=== PATIENT | male | born 1990 | race Caucasian/White ===

== ENCOUNTER 2017-03-07 09:55 | Emergency (ER) | payer MEDICAID ==
[~2017-03-07] VITALS: Ht 6206.4 cm; Wt 78.0 kg
[~2017-03-07 09:55] MED LIST: HYDR-569 PO
[2017-03-07] MEDS ORDERED: famotidine/PF 10 mg/ml inj IV ONE (10:35)
[2017-03-07] MEDS ORDERED: methylPREDNISolone sod succ 125mg/2ml vial IV ONE (10:35)
[2017-03-07] MEDS ORDERED: normal saline 1000ML IV soln IVB ONE (10:35)
[2017-03-07] MEDS ORDERED: ondansetron/PF 4mg/2ml inj IV ONE (10:35)
[2017-03-07 11:13] LABS: BASOPHILS % (AUTO) 0.3 % (0-1); EOSINOPHILS # (AUTO) 0.3 X10'3 (0-0.9); EOSINOPHILS % (AUTO) 2.7 % (0-6); HEMATOCRIT 37.4 % (42.0-52.0); HEMOGLOBIN 12.5 g/dl (14.0-17.9); LYMPHOCYTES # (AUTO) 2.4 X10'3 (1.1-4.8); MEAN CORPUSCULAR HEMOGLOBIN 25.5 PG (27.0-31.0); MEAN CORPUSCULAR HGB CONC 33.5 % (33.0-36.5); MEAN CORPUSCULAR VOLUME 76.2 FL (78-98); MEAN PLATELET VOLUME 7.3 FL (7.4-10.4); MONOCYTES # (AUTO) 0.7 X10'3 (0-0.9); MONOCYTES % (AUTO) 7.2 % (2-12); NEUTROPHILS # (AUTO) 6.5 X10'3 (1.8-7.7); NEUTROPHILS % (AUTO) 65.8 % (42-75); PLATELET COUNT 356 X10'3 (140-440); RED BLOOD COUNT 4.91 X10'6 (4.70-6.10); WHITE BLOOD COUNT 9.9 X10'3 (4.5-11.0)
[2017-03-07 11:25] LABS: ALANINE AMINOTRANSFERASE 17 U/L (12-78); ALBUMIN 4.1 G/DL (3.4-5.0); ALKALINE PHOSPHATASE 70 IU/L (46-116); ANION GAP 7 (8-16); ASPARTATE AMINO TRANSFERASE 10 U/L (10-37); BILIRUBIN,TOTAL 0.4 MG/DL (0.1-1.0); BLOOD UREA NITROGEN 14 MG/DL (7-18); BUN/CREATININE RATIO 14.4 (5.4-32.0); CHLORIDE 106 MMOL/L (99-107); CREATININE 0.97 MG/DL (0.60-1.10); GLUCOSE 82 MG/DL (70-104); LIPASE 176 U/L (73-393); POTASSIUM 3.3 MMOL/L (3.5-5.1); SODIUM 143 MMOL/L (135-145); TOTAL CARBON DIOXIDE 29.6 MMOL/L (24-32); TOTAL PROTEIN 8.1 G/DL (6.4-8.2); eGFR > 90 ML/MIN
[2017-03-07] MEDS ORDERED: diphenhydrAMINE 50 mg/ml inj IV ONE (11:25)
[2017-03-07 11:28] LABS: CALCIUM 9.5 MG/DL (8.5-10.1)
[2017-03-07] MEDS ORDERED: HYDR-569 PO (11:46)
[2017-03-07] MEDS ORDERED: METH4TAB3 PO (11:46)
[2017-03-07 12:11] VITALS: BP 125/75
== END 2017-03-07 12:15 | disposition home or self-care (01) ==
LOC: ER 09:57
DX: K50.90 Crohn's disease, unspecified, without complications (principal); R10.84 Generalized abdominal pain; F12.10 Cannabis abuse, uncomplicated; G89.29 Other chronic pain; Z90.49 Acquired absence of other specified parts of digestive tract; Z98.890 Other specified postprocedural states; Z88.5 Allergy status to narcotic agent
CPT/HCPCS: 36415; 80053; 83690; 85025; 96361; 96374; 96375; 99284; J1200; J2270; J2405; J2930; J3490

== ENCOUNTER 2017-04-23 04:41 | Emergency (ER) | payer MEDICAID ==
[~2017-04-23] VITALS: Ht 188 cm; Wt 81.0 kg
[~2017-04-23 04:41] MED LIST changes: +AZI25OT PO; +DICY10CA88 PO; +HYDR-565 PO; +METH4TAB3 PO
[2017-04-23] MEDS ORDERED: proCHLORperazine 10 MG/2 ml inj IV ONE (05:00)
[2017-04-23] MEDS ORDERED: LORazepam 2 mg/ml vial IV ONE (05:00)
[2017-04-23] MEDS ORDERED: diphenhydrAMINE 50 mg/ml inj IV ONE (05:00)
[2017-04-23] MEDS ORDERED: normal saline 1000ML IV soln IVB ONE (05:00)
[2017-04-23] MEDS ORDERED: morphine 2 MG/ML inj. syringe IV ONE (05:00)
[2017-04-23] MEDS ORDERED: morphine 4 MG/ML inj SYRINge IV ONE (05:35)
[2017-04-23 05:46] LABS: ALANINE AMINOTRANSFERASE 24 U/L (12-78); ALBUMIN 3.8 G/DL (3.4-5.0); ALBUMIN/GLOBULIN RATIO 0.9 (1.1-1.5); ALKALINE PHOSPHATASE 77 IU/L (46-116); ANION GAP 8 (8-16); ASPARTATE AMINO TRANSFERASE 11 U/L (10-37); BILIRUBIN,TOTAL 0.2 MG/DL (0.1-1.0); BLOOD UREA NITROGEN 12 MG/DL (7-18); BUN/CREATININE RATIO 13.6 (5.4-32.0); CALCIUM 9.2 MG/DL (8.5-10.1); CHLORIDE 101 MMOL/L (99-107); CREATININE 0.88 MG/DL (0.60-1.10); GLUCOSE 106 MG/DL (70-104); LIPASE 89 U/L (73-393); POTASSIUM 3.7 MMOL/L (3.5-5.1); SODIUM 138 MMOL/L (135-145); TOTAL CARBON DIOXIDE 29.4 MMOL/L (24-32); eGFR > 90 ML/MIN
[2017-04-23] MEDS ORDERED: DICY10CA88 PO (06:08)
[2017-04-23] MEDS ORDERED: PRED20TA PO (06:08)
[2017-04-23] MEDS ORDERED: ONDA4TAB12 PO (06:08)
[2017-04-23] MEDS ORDERED: methylPREDNISolone sod succ 125mg/2ml vial IV ONE (06:10)
[2017-04-23 07:08] LABS: BASOPHILS % (AUTO) 0.4 % (0-1); EOSINOPHILS # (AUTO) 0.3 X10'3 (0-0.9); EOSINOPHILS % (AUTO) 3.2 % (0-6); HEMATOCRIT 28.7 % (42.0-52.0); HEMOGLOBIN 9.8 g/dl (14.0-17.9); LYMPHOCYTES % (AUTO) 22.3 % (21-51); MEAN CORPUSCULAR HEMOGLOBIN 25.2 PG (27.0-31.0); MEAN CORPUSCULAR VOLUME 74.1 FL (78-98); MONOCYTES # (AUTO) 0.6 X10'3 (0-0.9); MONOCYTES % (AUTO) 6.7 % (2-12); NEUTROPHILS % (AUTO) 67.4 % (42-75); PLATELET COUNT 414 X10'3 (140-440); RED BLOOD COUNT 3.87 X10'6 (4.70-6.10); RED CELL DISTRIBUTION WIDTH 17.6 % (11.5-14.5); WHITE BLOOD COUNT 8.9 X10'3 (4.5-11.0)
[2017-04-23 07:30] VITALS: BP 116/60
== END 2017-04-23 07:31 | disposition home or self-care (01) ==
LOC: ER 04:42
DX: R11.2 Nausea with vomiting, unspecified (principal); R10.84 Generalized abdominal pain; R19.7 Diarrhea, unspecified; R53.83 Other fatigue; F12.10 Cannabis abuse, uncomplicated; F17.210 Nicotine dependence, cigarettes, uncomplicated; G89.29 Other chronic pain; Z86.14 Personal history of Methicillin resistant Staphylococcus aureus infection; Z90.49 Acquired absence of other specified parts of digestive tract; Z88.5 Allergy status to narcotic agent; Z88.8 Allergy status to other drugs, medicaments and biological substances; Z79.899 Other long term (current) drug therapy
CPT/HCPCS: 36415; 80053; 83690; 85025; 96361; 96374; 96375; 99284; J0780; J1200; J2060; J2270; J2930; J7030

== ENCOUNTER 2017-04-27 01:53 | Emergency (ER) | payer MEDICAID ==
[~2017-04-27] VITALS: Ht 188 cm; Wt 78.8 kg
[~2017-04-27 01:53] MED LIST changes: +ONDA4TAB12 PO; +PRED20TA PO
[2017-04-27 03:11] LABS: BASOPHILS % (AUTO) 0.4 % (0-1); EOSINOPHILS # (AUTO) 0.3 X10'3 (0-0.9); EOSINOPHILS % (AUTO) 2.6 % (0-6); HEMATOCRIT 37.2 % (42.0-52.0); HEMOGLOBIN 12.3 g/dl (14.0-17.9); LYMPHOCYTES # (AUTO) 2.6 X10'3 (1.1-4.8); LYMPHOCYTES % (AUTO) 25.1 % (21-51); MEAN CORPUSCULAR HGB CONC 33.1 % (33.0-36.5); MEAN CORPUSCULAR VOLUME 75.6 FL (78-98); MEAN PLATELET VOLUME 6.8 FL (7.4-10.4); MONOCYTES # (AUTO) 0.5 X10'3 (0-0.9); MONOCYTES % (AUTO) 5.1 % (2-12); NEUTROPHILS # (AUTO) 7.1 X10'3 (1.8-7.7); NEUTROPHILS % (AUTO) 66.8 % (42-75); PLATELET COUNT 463 X10'3 (140-440); RED BLOOD COUNT 4.92 X10'6 (4.70-6.10); RED CELL DISTRIBUTION WIDTH 17.2 % (11.5-14.5); WHITE BLOOD COUNT 10.6 X10'3 (4.5-11.0)
[2017-04-27] MEDS ORDERED: morphine 4 MG/ML inj SYRINge IV ONE (03:15)
[2017-04-27] MEDS ORDERED: ondansetron/PF 4mg/2ml inj IV ONE (03:15)
[2017-04-27 03:23] LABS: PROTHROMBIN TIME 10.5 SECONDS (9.0-12.0)
[2017-04-27 03:29] LABS: ALANINE AMINOTRANSFERASE 15 U/L (12-78); ALBUMIN 3.9 G/DL (3.4-5.0); ALBUMIN/GLOBULIN RATIO 0.9 (1.1-1.5); ALKALINE PHOSPHATASE 80 IU/L (46-116); ANION GAP 11 (8-16); ASPARTATE AMINO TRANSFERASE 10 U/L (10-37); BILIRUBIN,TOTAL 0.2 MG/DL (0.1-1.0); BLOOD UREA NITROGEN 16 MG/DL (7-18); BUN/CREATININE RATIO 17.4 (5.4-32.0); CALCIUM 9.6 MG/DL (8.5-10.1); CHLORIDE 104 MMOL/L (99-107); CREATININE 0.92 MG/DL (0.60-1.10); GLUCOSE 94 MG/DL (70-104); POTASSIUM 3.6 MMOL/L (3.5-5.1); SODIUM 143 MMOL/L (135-145); TOTAL CARBON DIOXIDE 27.7 MMOL/L (24-32); TOTAL PROTEIN 8.3 G/DL (6.4-8.2); eGFR > 90 ML/MIN
[2017-04-27 03:48] LABS: C-REACTIVE PROTEIN 1.49 MG/DL (0.0-0.5)
[2017-04-27 04:40] VITALS: BP 112/63
== END 2017-04-27 04:43 | disposition home or self-care (01) ==
LOC: ER 01:53
DX: F11.20 Opioid dependence, uncomplicated (principal); R10.84 Generalized abdominal pain; R19.7 Diarrhea, unspecified; G89.29 Other chronic pain; F12.10 Cannabis abuse, uncomplicated; K50.90 Crohn's disease, unspecified, without complications; Z76.5 Malingerer [conscious simulation]; Z86.14 Personal history of Methicillin resistant Staphylococcus aureus infection; Z88.8 Allergy status to other drugs, medicaments and biological substances; Z88.5 Allergy status to narcotic agent; Z79.899 Other long term (current) drug therapy
CPT/HCPCS: 36415; 80053; 85025; 85610; 85651; 86140; 96374; 96375; 99284; J2270; J2405; J7030

== ENCOUNTER 2017-05-05 17:04 | Emergency (ER) | payer MEDICAID ==
[~2017-05-05] VITALS: Ht 188 cm; Wt 77.7 kg
[~2017-05-05 17:04] MED LIST changes: -AZI25OT PO
[2017-05-05] MEDS ORDERED: bacitracin 15gm ointment TP ONE (19:25)
[2017-05-05 19:43] VITALS: BP 127/79
== END 2017-05-05 19:44 | disposition home or self-care (01) ==
LOC: ER 17:05
DX: L03.012 Cellulitis of left finger (principal); F12.10 Cannabis abuse, uncomplicated; Z88.6 Allergy status to analgesic agent; Z88.8 Allergy status to other drugs, medicaments and biological substances
CPT/HCPCS: 10060; 99283; A6449

== ENCOUNTER 2017-06-11 09:01 | Emergency (ER) | payer MEDICAID ==
[~2017-06-11] VITALS: Ht 188 cm; Wt 78.0 kg
[~2017-06-11 09:01] MED LIST changes: +CYCL-1 PO; -DICY10CA88 PO; +HYDR-3965 PO; -HYDR-565 PO; +ONDA8TAB9 PO
[2017-06-11 09:13] VITALS: BP 115/77
[2017-06-11 09:35] LABS: BASOPHILS # (AUTO) 0.1 X10'3 (0-0.2); EOSINOPHILS # (AUTO) 0.2 X10'3 (0-0.9); EOSINOPHILS % (AUTO) 3.1 % (0-6); HEMATOCRIT 34.7 % (42.0-52.0); HEMOGLOBIN 11.5 g/dl (14.0-17.9); LYMPHOCYTES # (AUTO) 2.7 X10'3 (1.1-4.8); LYMPHOCYTES % (AUTO) 37.7 % (21-51); MEAN CORPUSCULAR HEMOGLOBIN 24.5 PG (27.0-31.0); MEAN CORPUSCULAR HGB CONC 33.2 % (33.0-36.5); MEAN CORPUSCULAR VOLUME 73.8 FL (78-98); MEAN PLATELET VOLUME 6.6 FL (7.4-10.4); MONOCYTES # (AUTO) 0.5 X10'3 (0-0.9); MONOCYTES % (AUTO) 7.6 % (2-12); NEUTROPHILS # (AUTO) 3.6 X10'3 (1.8-7.7); NEUTROPHILS % (AUTO) 50.6 % (42-75); PLATELET COUNT 411 X10'3 (140-440); RED CELL DISTRIBUTION WIDTH 18.2 % (11.5-14.5); WHITE BLOOD COUNT 7.1 X10'3 (4.5-11.0)
[2017-06-11 09:43] LABS: PROTHROMBIN TIME 10.5 SECONDS (9.0-12.0)
[2017-06-11 09:49] LABS: ANION GAP 11 (8-16); BLOOD UREA NITROGEN 13 MG/DL (7-18); BUN/CREATININE RATIO 13.8 (5.4-32.0); CHLORIDE 103 MMOL/L (99-107); CREATININE 0.94 MG/DL (0.60-1.10); GLUCOSE 96 MG/DL (70-104); POTASSIUM 3.2 MMOL/L (3.5-5.1); SODIUM 144 MMOL/L (135-145); TOTAL CARBON DIOXIDE 29.7 MMOL/L (24-32)
[2017-06-11 09:50] LABS: ALANINE AMINOTRANSFERASE 30 U/L (12-78); ALBUMIN 4.1 G/DL (3.4-5.0); ALBUMIN/GLOBULIN RATIO 0.9 (1.1-1.5); ALKALINE PHOSPHATASE 76 IU/L (46-116); ASPARTATE AMINO TRANSFERASE 15 U/L (10-37); BILIRUBIN,TOTAL 0.3 MG/DL (0.1-1.0); CALCIUM 9.4 MG/DL (8.5-10.1); TOTAL PROTEIN 8.5 G/DL (6.4-8.2); eGFR > 90 ML/MIN
== END 2017-06-11 10:36 | disposition left against medical advice (07) ==
LOC: ER 09:02
DX: R10.9 Unspecified abdominal pain (principal); Z53.21 Procedure and treatment not carried out due to patient leaving prior to being seen by health care provider
CPT/HCPCS: 36415; 80053; 85025; 85610; 99281

== ENCOUNTER 2017-10-25 18:33 | Emergency (ER) | payer MEDICAID ==
[~2017-10-25] VITALS: Ht 188 cm; Wt 80.0 kg
[~2017-10-25 18:33] MED LIST changes: -HYDR-3965 PO; -PRED20TA PO
[2017-10-25 18:42] VITALS: BP 136/81
[2017-10-25] MEDS ORDERED: HYDROcodone/acetaminophen 10/325mg tab PO ONE (19:20)
[2017-10-25] MEDS ORDERED: IBUP-1985 PO (19:22)
[2017-10-25] MEDS ORDERED: PENI500T2 PO (19:22)
== END 2017-10-25 19:38 | disposition home or self-care (01) ==
LOC: ER 18:34
DX: K08.89 Other specified disorders of teeth and supporting structures (principal); G89.29 Other chronic pain; F12.90 Cannabis use, unspecified, uncomplicated; Z98.890 Other specified postprocedural states; Z90.49 Acquired absence of other specified parts of digestive tract; Z88.5 Allergy status to narcotic agent; Z88.8 Allergy status to other drugs, medicaments and biological substances
CPT/HCPCS: 99283

== ENCOUNTER 2017-12-30 12:39 | Emergency (ER) | payer MEDICAID ==
[~2017-12-30] VITALS: Ht 188 cm; Wt 78.6 kg
[~2017-12-30 12:39] MED LIST changes: +HYDR-4383 PO; -HYDR-569 PO; +IBUP-1985 PO
[2017-12-30 13:25] LABS: BASOPHILS % (AUTO) 0.3 % (0-1); EOSINOPHILS # (AUTO) 0.3 X10'3 (0-0.9); EOSINOPHILS % (AUTO) 2.5 % (0-6); HEMATOCRIT 37.2 % (42.0-52.0); HEMOGLOBIN 12.2 g/dl (14.0-17.9); LYMPHOCYTES % (AUTO) 19.3 % (21-51); MEAN CORPUSCULAR HEMOGLOBIN 25.4 PG (27.0-31.0); MEAN CORPUSCULAR HGB CONC 32.9 % (33.0-36.5); MEAN CORPUSCULAR VOLUME 77.4 FL (78-98); MEAN PLATELET VOLUME 6.8 FL (7.4-10.4); MONOCYTES # (AUTO) 0.7 X10'3 (0-0.9); MONOCYTES % (AUTO) 6.5 % (2-12); NEUTROPHILS # (AUTO) 7.4 X10'3 (1.8-7.7); NEUTROPHILS % (AUTO) 71.4 % (42-75); PLATELET COUNT 484 X10'3 (140-440); WHITE BLOOD COUNT 10.4 X10'3 (4.5-11.0)
[2017-12-30 13:39] LABS: ALANINE AMINOTRANSFERASE 15 U/L (12-78); ALBUMIN 3.6 G/DL (3.4-5.0); ALBUMIN/GLOBULIN RATIO 0.8 (1.1-1.5); ALKALINE PHOSPHATASE 78 IU/L (46-116); ANION GAP 9 (8-16); ASPARTATE AMINO TRANSFERASE 11 U/L (10-37); BILIRUBIN,TOTAL 0.2 MG/DL (0.1-1.0); BLOOD UREA NITROGEN 15 MG/DL (7-18); BUN/CREATININE RATIO 19.7 (5.4-32.0); CALCIUM 9.4 MG/DL (8.5-10.1); CHLORIDE 101 MMOL/L (99-107); CREATININE 0.76 MG/DL (0.60-1.10); GLUCOSE 95 MG/DL (70-104); POTASSIUM 3.4 MMOL/L (3.5-5.1); SODIUM 140 MMOL/L (135-145); TOTAL CARBON DIOXIDE 29.7 MMOL/L (24-32); TOTAL PROTEIN 8.2 G/DL (6.4-8.2); eGFR > 90 ML/MIN
[2017-12-30] MEDS ORDERED: methylPREDNISolone sod succ 125mg/2ml vial IV ONE (13:40)
[2017-12-30 13:43] LABS: INR 1.1 INR; PROTHROMBIN TIME 10.7 SECONDS (9.0-12.0)
[2017-12-30 13:44] LABS: CLARITY,URINE CLEAR (Clear); COLOR,URINE YELLOW (Yellow); GLUCOSE, URINE NEGATIVE (Neg); KETONES,URINE NEGATIVE (Neg); LEUKOCYTE ESTERASE ,URINE NEGATIVE (Neg); NITRITES, URINE NEGATIVE (Neg); OCCULT BLOOD,URINE TRACE-INTACT (Neg); PH,URINE 5.5 (4.8-8.0); PROTEIN,URINE NEGATIVE (Neg); UA COLLECTION TYPE VOIDED; UROBILINOGEN,URINE 0.2 E.U/dL (0.2-1.0)
[2017-12-30] MEDS ORDERED: PRED10TA23 PO (13:45)
[2017-12-30 14:00] VITALS: BP 133/71
[2017-12-30] MEDS ORDERED: proCHLORperazine 10 MG/2 ml inj IV ONE (14:05)
[2017-12-30 14:09] LABS: MUCUS STRANDS MANY /LPF (Neg); SQUAMOUS EPITHELIAL CELL,UR NONE SEEN /LPF (FEW)
[2017-12-30 14:12] LABS: BACTERIA,URINE FEW /HPF (Neg); CAL OXALATE CRYSTALS 1+ /HPF (NEGATIVE); WBC,URINE 0-4 /HPF (0-4)
[2017-12-30 14:46] LABS: PLATELET ESTIMATE INCREASED
[2017-12-30 14:47] LABS: ANISOCYTOSIS 2+
[2017-12-30 14:48] LABS: MICROCYTOSIS 1+
== END 2017-12-30 14:19 | disposition home or self-care (01) ==
LOC: ER 12:39
DX: K50.90 Crohn's disease, unspecified, without complications (principal); G89.29 Other chronic pain; F12.90 Cannabis use, unspecified, uncomplicated; Z90.49 Acquired absence of other specified parts of digestive tract; Z98.890 Other specified postprocedural states; Z86.14 Personal history of Methicillin resistant Staphylococcus aureus infection; Z88.5 Allergy status to narcotic agent; Z88.8 Allergy status to other drugs, medicaments and biological substances; Z79.899 Other long term (current) drug therapy
CPT/HCPCS: 36415; 80053; 81001; 85025; 85610; 96374; 96375; 99284; J0780; J2930

== ENCOUNTER 2021-04-12 15:34 | Emergency (ER) | payer MEDICAID ==
[~2021-04-12] VITALS: Ht 188 cm; Wt 109.1 kg
[2021-04-12 15:50] VITALS: BP 125/78
[2021-04-12] MEDS ORDERED: SOTROVIMAB 500mg injection 500 MG in normal saline 100ml IV soln 100 ML IV ONE (16:00)
== END 2021-04-12 18:21 | disposition home or self-care (01) ==
LOC: ER 15:35
DX: U07.1 COVID-19 (principal); R51.9 Headache, unspecified; R05.9 Cough, unspecified; G89.29 Other chronic pain; F41.9 Anxiety disorder, unspecified; F32.9 Major depressive disorder, single episode, unspecified; F12.90 Cannabis use, unspecified, uncomplicated; Z86.14 Personal history of Methicillin resistant Staphylococcus aureus infection; Z90.89 Acquired absence of other organs; Z98.890 Other specified postprocedural states; Z88.8 Allergy status to other drugs, medicaments and biological substances; Z88.5 Allergy status to narcotic agent; Z79.899 Other long term (current) drug therapy
CPT/HCPCS: 99284; J3490; M0247; Q0247

== ENCOUNTER 2022-04-11 07:20 | Emergency (ER) | payer MEDICAID ==
[~2022-04-11] VITALS: Ht 188 cm; Wt 106.0 kg
[2022-04-11 08:39] LABS: BASOPHILS % (AUTO) 0.3 % (0-1); EOSINOPHILS # (AUTO) 0.1 X10'3 (0-0.9); EOSINOPHILS % (AUTO) 1.1 % (0-6); HEMATOCRIT 39.4 % (42.0-52.0); HEMOGLOBIN 13.1 g/dl (14.0-17.9); LYMPHOCYTES # (AUTO) 1.6 X10'3 (1.1-4.8); LYMPHOCYTES % (AUTO) 16.3 % (21-51); MEAN CORPUSCULAR HEMOGLOBIN 25.8 PG (27.0-31.0); MEAN CORPUSCULAR HGB CONC 33.2 g/dL (33.0-36.5); MEAN CORPUSCULAR VOLUME 77.6 FL (78-98); MONOCYTES # (AUTO) 0.6 X10'3 (0-0.9); MONOCYTES % (AUTO) 6.5 % (2-12); NEUTROPHILS # (AUTO) 7.2 X10'3 (1.8-7.7); NEUTROPHILS % (AUTO) 75.8 % (42-75); PLATELET COUNT 351 X10'3 (140-440); RED BLOOD COUNT 5.08 X10'6 (4.70-6.10); RED CELL DISTRIBUTION WIDTH 17.1 % (11.5-14.5); WHITE BLOOD COUNT 9.5 X10'3 (4.5-11.0)
[2022-04-11 08:48] LABS: ALANINE AMINOTRANSFERASE 32 U/L (12-78); ALBUMIN 3.7 G/DL (3.4-5.0); ALBUMIN/GLOBULIN RATIO 0.8 (1.1-1.5); ALKALINE PHOSPHATASE 104 IU/L (46-116); ANION GAP 5 (8-16); ASPARTATE AMINO TRANSFERASE 23 U/L (10-37); BILIRUBIN,TOTAL 0.4 MG/DL (0.1-1.0); BLOOD UREA NITROGEN 11 MG/DL (7-18); BUN/CREATININE RATIO 11.5 (5.4-32.0); CHLORIDE 103 MMOL/L (99-107); CREATININE 0.96 MG/DL (0.60-1.10); GLUCOSE 99 MG/DL (70-104); LIPASE < 50 U/L (73-393); POTASSIUM 3.5 MMOL/L (3.5-5.1); SODIUM 138 MMOL/L (135-145); TOTAL CARBON DIOXIDE 29.9 MMOL/L (24-32); TOTAL PROTEIN 8.1 G/DL (6.4-8.2); eGFR > 90 ML/MIN
[2022-04-11 08:55] LABS: CALCIUM 9.2 MG/DL (8.5-10.1)
[2022-04-11] MEDS ORDERED: morphine 4 MG/ML inj SYRINge IV ONE (09:25)
[2022-04-11] MEDS ORDERED: ondansetron/PF 4mg/2ml inj IV ONE (09:25)
[2022-04-11] MEDS ORDERED: methylPREDNISolone sod succ 125mg/2ml vial IV ONE (09:25)
[2022-04-11] MEDS ORDERED: normal saline 1000ml 1,000 ML IV ONE (09:25)
[2022-04-11] MEDS ORDERED: HYDR-3972 PO (09:44)
[2022-04-11] MEDS ORDERED: PRED10TA PO (09:44)
[2022-04-11] MEDS ORDERED: ONDA4TAB12 PO (09:44)
[2022-04-11] MEDS ORDERED: HYDROcodone/acetaminophen 10/325mg tab PO ONE (10:30)
[2022-04-11] MEDS ORDERED: ondansetron 4mg rapidly disintigrating tab PO ONE (10:30)
[2022-04-11 10:42] VITALS: BP 131/74
== END 2022-04-11 10:43 | disposition home or self-care (01) ==
LOC: ER 07:20
DX: K50.90 Crohn's disease, unspecified, without complications (principal); G89.29 Other chronic pain; M54.9 Dorsalgia, unspecified; F31.9 Bipolar disorder, unspecified; F12.10 Cannabis abuse, uncomplicated; Z86.14 Personal history of Methicillin resistant Staphylococcus aureus infection; Z79.899 Other long term (current) drug therapy; Z88.5 Allergy status to narcotic agent; Z88.8 Allergy status to other drugs, medicaments and biological substances
CPT/HCPCS: 36415; 80053; 83690; 85025; 96361; 96374; 96375; 99284; J2270; J2405; J2930; J7030

== ENCOUNTER 2022-05-07 12:02 | Emergency (ER) | payer MEDICAID ==
[~2022-05-07] VITALS: Ht 188 cm; Wt 109.1 kg
[~2022-05-07 12:02] MED LIST changes: +PRED10TA PO
[2022-05-07 12:16] VITALS: BP 136/85
[2022-05-07] MEDS ORDERED: normal saline 1000ml 1,000 ML IV ONE (12:50)
[2022-05-07] MEDS ORDERED: ondansetron/PF 4mg/2ml inj IV ONE (12:50)
[2022-05-07] MEDS ORDERED: morphine 2 MG/ML inj. syringe IV ONE (12:50)
[2022-05-07 13:08] LABS: BASOPHILS % (AUTO) 0.3 % (0-1); EOSINOPHILS # (AUTO) 0.2 X10'3 (0-0.9); EOSINOPHILS % (AUTO) 2.1 % (0-6); HEMATOCRIT 39.2 % (42.0-52.0); HEMOGLOBIN 13.1 g/dl (14.0-17.9); LYMPHOCYTES # (AUTO) 2.7 X10'3 (1.1-4.8); LYMPHOCYTES % (AUTO) 29.7 % (21-51); MEAN CORPUSCULAR HEMOGLOBIN 25.9 PG (27.0-31.0); MEAN CORPUSCULAR HGB CONC 33.4 g/dL (33.0-36.5); MEAN CORPUSCULAR VOLUME 77.6 FL (78-98); MEAN PLATELET VOLUME 6.9 FL (7.4-10.4); MONOCYTES # (AUTO) 0.6 X10'3 (0-0.9); MONOCYTES % (AUTO) 6.3 % (2-12); NEUTROPHILS # (AUTO) 5.5 X10'3 (1.8-7.7); NEUTROPHILS % (AUTO) 61.6 % (42-75); PLATELET COUNT 378 X10'3 (140-440); RED BLOOD COUNT 5.05 X10'6 (4.70-6.10); RED CELL DISTRIBUTION WIDTH 17.1 % (11.5-14.5)
[2022-05-07 13:31] LABS: ALANINE AMINOTRANSFERASE 42 U/L (12-78); ALBUMIN 3.8 G/DL (3.4-5.0); ALBUMIN/GLOBULIN RATIO 0.8 (1.1-1.5); ALKALINE PHOSPHATASE 105 IU/L (46-116); ANION GAP 6 (8-16); ASPARTATE AMINO TRANSFERASE 28 U/L (10-37); BILIRUBIN,TOTAL 0.3 MG/DL (0.1-1.0); BLOOD UREA NITROGEN 6 MG/DL (7-18); BUN/CREATININE RATIO 6.1 (5.4-32.0); C-REACTIVE PROTEIN 1.08 MG/DL (0.0-0.5); CALCIUM 9.4 MG/DL (8.5-10.1); CHLORIDE 102 MMOL/L (99-107); CREATININE 0.99 MG/DL (0.60-1.10); GLUCOSE 78 MG/DL (70-104); POTASSIUM 3.7 MMOL/L (3.5-5.1); SODIUM 138 MMOL/L (135-145); TOTAL CARBON DIOXIDE 29.7 MMOL/L (24-32); TOTAL PROTEIN 8.4 G/DL (6.4-8.2); eGFR 89 ML/MIN
[2022-05-07] MEDS ORDERED: morphine 4 MG/ML inj SYRINge IV ONE ×2 (14:00→15:10)
[2022-05-07 14:23] LABS: LIPASE 54 U/L (73-393)
[2022-05-07] MEDS ORDERED: ONDA8TAB13 PO ×2 (15:17)
[2022-05-07] MEDS ORDERED: PRED10TA23 PO ×2 (15:17)
[2022-05-07] MEDS ORDERED: PRED5TAB PO ×2 (15:17)
[2022-05-07] MEDS ORDERED: PER5325T PO (15:17)
[2022-05-07] MEDS ORDERED: PRED20TA PO ×2 (15:17)
[2022-05-07] MEDS ORDERED: oxyCODONE/APAP 10/325mg tablet PO ONE ×2 (15:45→16:05)
[2022-05-07] MEDS ORDERED: methylPREDNISolone sod succ 125mg/2ml vial IV ONE (15:45)
[2022-05-08] MEDS ORDERED: USTE90DI SQ (05:00)
[2022-05-08] MEDS ORDERED: LURA60TA PO (05:00)
[2022-05-08] MEDS ORDERED: PROP20TA6 PO (05:00)
[2022-05-08] MEDS ORDERED: ALPR1TAB7 PO (05:00)
== END 2022-05-07 17:00 | disposition home or self-care (01) ==
LOC: ER 12:03
DX: K50.90 Crohn's disease, unspecified, without complications (principal); G89.29 Other chronic pain; F41.9 Anxiety disorder, unspecified; F32.9 Major depressive disorder, single episode, unspecified; Z86.14 Personal history of Methicillin resistant Staphylococcus aureus infection; F12.90 Cannabis use, unspecified, uncomplicated; Z90.49 Acquired absence of other specified parts of digestive tract; Z98.890 Other specified postprocedural states; Z88.5 Allergy status to narcotic agent; Z88.6 Allergy status to analgesic agent; Z79.899 Other long term (current) drug therapy; Z88.8 Allergy status to other drugs, medicaments and biological substances
CPT/HCPCS: 36415; 74176; 80053; 83605; 83690; 84145; 85025; 86140; 87040; 96361; 96374; 96375; 96376; 99285; J2270; J2405; J2930; J7030

== ENCOUNTER 2022-05-08 03:03 | Inpatient (IN) | payer MEDICAID ==
[~2022-05-08] VITALS: Ht 188 cm; Wt 109.1 kg
[~2022-05-08 03:03] MED LIST changes: +ONDA8TAB13 PO; +PER5325T PO; +PRED10TA23 PO; +PRED20TA PO; +PRED5TAB PO
[2022-05-08] MEDS ORDERED: ondansetron/PF 4mg/2ml inj IV ONE (03:15)
[2022-05-08] MEDS ORDERED: normal saline 1000ML IV soln IVB ONE (03:15)
[2022-05-08] MEDS ORDERED: morphine 4 MG/ML inj SYRINge IV ONE (03:20)
[2022-05-08] MEDS ORDERED: LIDOcaine 2% 10ml TOPICAL JELLY (Urojet) MM ONE (03:55)
[2022-05-08] MEDS ORDERED: LidoCAINE 2% Topical Jelly 11mL syringe TOP ONE (04:00)
[2022-05-08] MEDS ORDERED: HYDROcodone/acetaminophen 5mg/325mg tablet PO PRN (04:25)
[2022-05-08] MEDS ORDERED: magnesium 4gm in 100ml NS 100 ML IV PRN (04:25)
[2022-05-08] MEDS ORDERED: acetaminophen 325mg tablet PO PRN ×2 (04:25)
[2022-05-08] MEDS ORDERED: potassium Cl 40MEQ/1/2NS 520ml 520 ML IV PRN (04:25)
[2022-05-08] MEDS ORDERED: potassium Cl 20 mEq SR tablet PO PRN ×2 (04:25)
[2022-05-08] MEDS ORDERED: mag hydrox/Alum hydrox/simeth 30ml oral suspension PO PRN (04:25)
[2022-05-08] MEDS ORDERED: magnesium hydroxide 30ml (MOM) UD suspension PO PRN (04:25)
[2022-05-08] MEDS ORDERED: morphine 2 MG/ML inj. syringe IV PRN (04:25)
[2022-05-08] MEDS ORDERED: ondansetron 4mg rapidly disintigrating tab PO PRN (04:25)
[2022-05-08] MEDS ORDERED: ondansetron/PF 4mg/2ml inj IV PRN (04:25)
[2022-05-08] MEDS ORDERED: metoclopramide 5 mg/ml inj IV PRN (04:25)
[2022-05-08] MEDS ORDERED: magnesium Cl slow-release 64mg tablet PO PRN (04:25)
[2022-05-08] MEDS ORDERED: USTE90DI SQ (05:00)
[2022-05-08] MEDS ORDERED: LURA60TA PO (05:00)
[2022-05-08] MEDS ORDERED: PROP20TA6 PO (05:00)
[2022-05-08] MEDS ORDERED: ALPR1TAB7 PO (05:00)
[2022-05-08 05:01] LABS: URINE AMPHETAMINE SCREEN NEGATIVE (Neg); URINE BARBITUATE SCREEN NEGATIVE (Neg); URINE BENZODIAZEPINES SCREEN POSITIVE (Neg); URINE CANNABINOID SCREEN NEGATIVE (Neg); URINE COCAINE SCREEN NEGATIVE (Neg); URINE METHADONE SCREEN POSITIVE (Neg); URINE OPIATE SCREEN POSITIVE (Neg); URINE PHENCYCLIDINE SCREEN NEGATIVE (Neg)
[2022-05-08] MEDS ORDERED: proCHLORperazine 10 MG/2 ml inj IV ONE (05:15)
[2022-05-08 05:34] LABS: MAGNESIUM 1.8 MG/DL (1.5-2.4); POTASSIUM 4.4 MMOL/L (3.5-5.1)
[2022-05-08] MEDS: methylPREDNISolone sod succ 125mg/2ml vial IV SCH ×4 (05:50→19:54)
[2022-05-08] MEDS: normal saline 1000ml 1,000 ML IV SCH ×2 (05:51→17:38)
[2022-05-08] MEDS: HYDROmorphone/PF 0.2 MG/ML SYRINGE IV PRN ×2 (06:14→10:27)
[2022-05-08] MEDS: HYDROcodone/acetaminophen 10/325mg tab PO PRN (08:31)
[2022-05-08] MEDS: docusate sod 100mg capsule PO SCH ×2 (08:31→20:03)
[2022-05-08] MEDS: K and/or MAG REPLACEMENT MC SCH ×2 (08:38→20:00)
--- NOTE | 2022-05-08 09:49 | NUR ---
475cc urine output, clear yellow
--- NOTE | 2022-05-08 13:43 | NUR ---
Page sent to Dr. Montelongo at 0080 for clarification of pain meds. Pt has 7/10 pain, but has another hr on Dilaudid.
--- NOTE | 2022-05-08 16:17 | NUR ---
T/C to MICHAEL Ya on [facility] for pt to be moved to [facility]. at 1615. Stafff states that Bhakti is dc'ing pts and will call back when she is able to take him.
[2022-05-08 16:30] LABS: ALBUMIN 3.5 G/DL (3.4-5.0); ANION GAP 8 (8-16); BLOOD UREA NITROGEN 10 MG/DL (7-18); BUN/CREATININE RATIO 11.6 (5.4-32.0); CALCIUM 9.1 MG/DL (8.5-10.1); CHLORIDE 105 MMOL/L (99-107); CREATININE 0.86 MG/DL (0.60-1.10); GLUCOSE 135 MG/DL (70-104); POTASSIUM 3.8 MMOL/L (3.5-5.1); SODIUM 140 MMOL/L (135-145); TOTAL CARBON DIOXIDE 27.1 MMOL/L (24-32); eGFR > 90 ML/MIN
[2022-05-08 16:34] LABS: BASOPHILS % (AUTO) 0 % (0-1); EOSINOPHILS % (AUTO) 0 % (0-6); HEMATOCRIT 38.1 % (42.0-52.0); HEMOGLOBIN 12.5 g/dl (14.0-17.9); LYMPHOCYTES # (AUTO) 1.2 X10'3 (1.1-4.8); MEAN CORPUSCULAR HEMOGLOBIN 25.4 PG (27.0-31.0); MEAN CORPUSCULAR HGB CONC 32.7 g/dL (33.0-36.5); MEAN CORPUSCULAR VOLUME 77.7 FL (78-98); MEAN PLATELET VOLUME 7.1 FL (7.4-10.4); MONOCYTES # (AUTO) 0.1 X10'3 (0-0.9); NEUTROPHILS # (AUTO) 12.4 X10'3 (1.8-7.7); PLATELET COUNT 359 X10'3 (140-440); RED CELL DISTRIBUTION WIDTH 17.1 % (11.5-14.5); WHITE BLOOD COUNT 13.8 X10'3 (4.5-11.0)
[2022-05-08] MEDS: metroNIDAZOLE-Flagyl 500mg/NS 100 ML IV SCH (17:07)
[2022-05-08 17:37] LABS: ANISOCYTOSIS 1+; MICROCYTOSIS 1+; PLATELET ESTIMATE NORMAL
[2022-05-08 17:50] VITALS: BP 134/81
[2022-05-08] MEDS: HYDROmorphone inj. 0.5 MG/0.5 ML DISP.SYRIN IV PRN ×2 (18:19→20:17)
--- NOTE | 2022-05-08 18:20 | NUR ---
Dilaudid 0.5mg/0.5ml given at 1440. Failed to press save.
[2022-05-08] MEDS: ciprofloxacin lact 400MG/200ML 200 ML IV SCH (19:54)
[2022-05-08] MEDS ORDERED: temazepam 15mg capsule PO PRN (21:00)
[2022-05-08] MEDS: diatr meglu/diatrizoate 30ml oral sol.-(3 dose) bottle PO SCH (21:23)
[2022-05-08 22:00] VITALS: BP 111/70
[2022-05-08] MEDS: ALPRAZolam 0.5mg tablet PO PRN (22:17)
[2022-05-09] MEDS: metroNIDAZOLE-Flagyl 500mg/NS 100 ML IV SCH ×3 (00:22→15:29)
[2022-05-09] MEDS: HYDROmorphone inj. 0.5 MG/0.5 ML DISP.SYRIN IV PRN ×6 (00:23→20:43)
[2022-05-09] MEDS: normal saline 1000ml 1,000 ML IV SCH ×3 (00:25→15:36)
[2022-05-09] MEDS: methylPREDNISolone sod succ 125mg/2ml vial IV SCH ×4 (02:04→20:33)
[2022-05-09] MEDS: ALPRAZolam 0.5mg tablet PO PRN ×4 (04:40→23:53)
[2022-05-09 06:00] VITALS: BP 110/68
[2022-05-09 06:06] LABS: BASOPHILS % (AUTO) 0.1 % (0-1); EOSINOPHILS % (AUTO) 0 % (0-6); HEMOGLOBIN 12.1 g/dl (14.0-17.9); LYMPHOCYTES # (AUTO) 1.1 X10'3 (1.1-4.8); LYMPHOCYTES % (AUTO) 7.9 % (21-51); MEAN CORPUSCULAR HEMOGLOBIN 25.9 PG (27.0-31.0); MEAN CORPUSCULAR HGB CONC 33.5 g/dL (33.0-36.5); MEAN CORPUSCULAR VOLUME 77.4 FL (78-98); MEAN PLATELET VOLUME 7.1 FL (7.4-10.4); MONOCYTES # (AUTO) 0.3 X10'3 (0-0.9); MONOCYTES % (AUTO) 1.8 % (2-12); NEUTROPHILS # (AUTO) 12.6 X10'3 (1.8-7.7); NEUTROPHILS % (AUTO) 90.2 % (42-75); PLATELET COUNT 333 X10'3 (140-440); RED BLOOD COUNT 4.65 X10'6 (4.70-6.10)
[2022-05-09 06:28] LABS: ALANINE AMINOTRANSFERASE 25 U/L (12-78); ALBUMIN 3.4 G/DL (3.4-5.0); ALBUMIN/GLOBULIN RATIO 0.9 (1.1-1.5); ALKALINE PHOSPHATASE 80 IU/L (46-116); ANION GAP 7 (8-16); ASPARTATE AMINO TRANSFERASE 12 U/L (10-37); BILIRUBIN,TOTAL 0.4 MG/DL (0.1-1.0); BLOOD UREA NITROGEN 12 MG/DL (7-18); CALCIUM 8.9 MG/DL (8.5-10.1); CHLORIDE 106 MMOL/L (99-107); GLUCOSE 135 MG/DL (70-104); MAGNESIUM 2.4 MG/DL (1.5-2.4); POTASSIUM 3.8 MMOL/L (3.5-5.1); SODIUM 140 MMOL/L (135-145); TOTAL CARBON DIOXIDE 27.1 MMOL/L (24-32); TOTAL PROTEIN 7.4 G/DL (6.4-8.2); eGFR > 90 ML/MIN
--- NOTE | 2022-05-09 06:41 | NUR ---
Patient in room [facility]. I have received report from Erica RN and had the opportunity to ask questions and assume patient care.
[2022-05-09] MEDS: docusate sod 100mg capsule PO SCH ×2 (07:51→20:46)
[2022-05-09] MEDS: diatr meglu/diatrizoate 30ml oral sol.-(3 dose) bottle PO SCH ×2 (07:51→10:44)
[2022-05-09] MEDS: K and/or MAG REPLACEMENT MC SCH ×2 (08:00→20:00)
[2022-05-09] MEDS: ciprofloxacin lact 400MG/200ML 200 ML IV SCH ×2 (09:20→20:40)
[2022-05-09] MEDS ORDERED: iohexol 300mg/ml 100ml inj. ONE (10:47)
[2022-05-09 14:00] VITALS: BP 138/83
--- NOTE | 2022-05-09 17:00 | NUR ---
I have reviewed and agree with interventions, assessments, and documentation by CARRIE Hinojosa.
[2022-05-09 18:00] VITALS: BP 120/70
[2022-05-09] MEDS: HYDROcodone/acetaminophen 10/325mg tab PO PRN (18:01)
--- NOTE | 2022-05-09 18:21 | NUR ---
Problems reprioritized. Patient report given, questions answered & plan of care reviewed with Erica RODRIGUEZ.
--- NOTE | 2022-05-09 18:24 | NUR ---
page: [phone] Jolly- Jaison Bonds: When you have a chance can you please address patients med rec, TY :)
--- NOTE | 2022-05-09 22:50 | NUR ---
Student documentation: I have reviewed and agree with all interventions, assessments performed and documented by BETH Smith [facility].
[2022-05-10] MEDS: metroNIDAZOLE-Flagyl 500mg/NS 100 ML IV SCH ×3 (00:10→16:24)
[2022-05-10] MEDS: methylPREDNISolone sod succ 125mg/2ml vial IV SCH ×3 (02:01→14:28)
[2022-05-10] MEDS: HYDROcodone/acetaminophen 10/325mg tab PO PRN ×4 (02:02→23:02)
[2022-05-10] MEDS: normal saline 1000ml 1,000 ML IV SCH ×3 (02:05→23:03)
[2022-05-10] MEDS: HYDROmorphone inj. 0.5 MG/0.5 ML DISP.SYRIN IV PRN ×2 (04:39→12:04)
[2022-05-10 06:00] VITALS: BP 107/61
--- NOTE | 2022-05-10 07:08 | NUR ---
Patient in room [facility]. I have received report from Erica and Nuris RODRIGUEZ and had the opportunity to ask questions and assume patient care.
[2022-05-10] MEDS: K and/or MAG REPLACEMENT MC SCH ×2 (08:00→20:00)
[2022-05-10] MEDS: docusate sod 100mg capsule PO SCH ×2 (08:19→20:14)
[2022-05-10] MEDS: ciprofloxacin lact 400MG/200ML 200 ML IV SCH ×2 (08:24→20:14)
[2022-05-10 08:34] LABS: BASOPHILS % (AUTO) 0.1 % (0-1); EOSINOPHILS % (AUTO) 0.2 % (0-6); HEMATOCRIT 38.2 % (42.0-52.0); HEMOGLOBIN 12.5 g/dl (14.0-17.9); LYMPHOCYTES # (AUTO) 1.2 X10'3 (1.1-4.8); LYMPHOCYTES % (AUTO) 7.4 % (21-51); MEAN CORPUSCULAR HEMOGLOBIN 25.6 PG (27.0-31.0); MEAN CORPUSCULAR HGB CONC 32.7 g/dL (33.0-36.5); MEAN CORPUSCULAR VOLUME 78.3 FL (78-98); MEAN PLATELET VOLUME 7.4 FL (7.4-10.4); MONOCYTES # (AUTO) 0.4 X10'3 (0-0.9); MONOCYTES % (AUTO) 2.4 % (2-12); NEUTROPHILS # (AUTO) 14.4 X10'3 (1.8-7.7); NEUTROPHILS % (AUTO) 89.9 % (42-75); PLATELET COUNT 359 X10'3 (140-440); RED BLOOD COUNT 4.87 X10'6 (4.70-6.10); RED CELL DISTRIBUTION WIDTH 17.3 % (11.5-14.5)
[2022-05-10 08:38] LABS: ALANINE AMINOTRANSFERASE 28 U/L (12-78); ALBUMIN 3.4 G/DL (3.4-5.0); ALBUMIN/GLOBULIN RATIO 0.9 (1.1-1.5); ALKALINE PHOSPHATASE 77 IU/L (46-116); ANION GAP 6 (8-16); ASPARTATE AMINO TRANSFERASE 22 U/L (10-37); BILIRUBIN,TOTAL 0.4 MG/DL (0.1-1.0); BLOOD UREA NITROGEN 15 MG/DL (7-18); BUN/CREATININE RATIO 15.2 (5.4-32.0); CALCIUM 8.8 MG/DL (8.5-10.1); CHLORIDE 105 MMOL/L (99-107); CREATININE 0.99 MG/DL (0.60-1.10); GLUCOSE 134 MG/DL (70-104); MAGNESIUM 2.5 MG/DL (1.5-2.4); SODIUM 140 MMOL/L (135-145); TOTAL CARBON DIOXIDE 29.5 MMOL/L (24-32); TOTAL PROTEIN 7.3 G/DL (6.4-8.2); eGFR 89 ML/MIN
[2022-05-10] MEDS ORDERED: non-formulary drug (Alprazolam 1 TAB) PO PRN (08:50)
[2022-05-10 10:00] VITALS: BP 126/71
[2022-05-10] MEDS: ALPRAZolam 0.5mg tablet PO PRN ×2 (10:31→16:24)
[2022-05-10] MEDS ORDERED: HYDROmorphone inj. 0.5 MG/0.5 ML DISP.SYRIN IV PRN (12:20)
[2022-05-10] MEDS ORDERED: HYDROmorphone/PF 0.2 MG/ML SYRINGE IV PRN (12:20)
[2022-05-10 13:27] VITALS: BP 147/86
[2022-05-10 16:22] VITALS: BP 136/81
[2022-05-10 18:00] VITALS: BP 127/74
--- NOTE | 2022-05-10 18:21 | NUR ---
Patient in room [facility]. I have received report from Erica Lawler RN and had the opportunity to ask questions and assume patient care.
[2022-05-10] MEDS: propranolol 10mg tablet PO SCH (20:00)
[2022-05-10] MEDS ORDERED: lurasidone 60mg tablet PO SCH (21:00)
[2022-05-10 22:00] VITALS: BP 124/67
[2022-05-11] MEDS: ALPRAZolam 0.5mg tablet PO PRN (00:15)
[2022-05-11] MEDS: metroNIDAZOLE-Flagyl 500mg/NS 100 ML IV SCH ×2 (00:15→07:45)
[2022-05-11] MEDS: HYDROcodone/acetaminophen 10/325mg tab PO PRN ×3 (03:26→12:25)
[2022-05-11 06:00] VITALS: BP 143/79
[2022-05-11 06:15] LABS: BASOPHILS % (AUTO) 0.1 % (0-1); EOSINOPHILS % (AUTO) 0 % (0-6); HEMATOCRIT 34.6 % (42.0-52.0); HEMOGLOBIN 11.6 g/dl (14.0-17.9); LYMPHOCYTES % (AUTO) 15.7 % (21-51); MEAN CORPUSCULAR HEMOGLOBIN 25.9 PG (27.0-31.0); MEAN CORPUSCULAR HGB CONC 33.6 g/dL (33.0-36.5); MEAN CORPUSCULAR VOLUME 77.1 FL (78-98); MEAN PLATELET VOLUME 7.3 FL (7.4-10.4); MONOCYTES # (AUTO) 1.1 X10'3 (0-0.9); MONOCYTES % (AUTO) 8.6 % (2-12); NEUTROPHILS # (AUTO) 9.8 X10'3 (1.8-7.7); NEUTROPHILS % (AUTO) 75.6 % (42-75); PLATELET COUNT 305 X10'3 (140-440); RED BLOOD COUNT 4.49 X10'6 (4.70-6.10); RED CELL DISTRIBUTION WIDTH 16.8 % (11.5-14.5); WHITE BLOOD COUNT 12.9 X10'3 (4.5-11.0)
[2022-05-11 06:27] LABS: ALANINE AMINOTRANSFERASE 31 U/L (12-78); ALBUMIN 2.8 G/DL (3.4-5.0); ALBUMIN/GLOBULIN RATIO 0.8 (1.1-1.5); ALKALINE PHOSPHATASE 66 IU/L (46-116); ANION GAP 4 (8-16); ASPARTATE AMINO TRANSFERASE 21 U/L (10-37); BILIRUBIN,TOTAL 0.3 MG/DL (0.1-1.0); BLOOD UREA NITROGEN 18 MG/DL (7-18); CALCIUM 8.2 MG/DL (8.5-10.1); CHLORIDE 108 MMOL/L (99-107); CREATININE 0.82 MG/DL (0.60-1.10); GLUCOSE 113 MG/DL (70-104); MAGNESIUM 2.6 MG/DL (1.5-2.4); POTASSIUM 3.7 MMOL/L (3.5-5.1); SODIUM 140 MMOL/L (135-145); TOTAL CARBON DIOXIDE 27.9 MMOL/L (24-32); TOTAL PROTEIN 6.1 G/DL (6.4-8.2); eGFR > 90 ML/MIN
[2022-05-11] MEDS: docusate sod 100mg capsule PO SCH (07:45)
[2022-05-11 07:55] VITALS: BP 143/79
[2022-05-11] MEDS ORDERED: predniSONE 20 mg tablet PO SCH (08:00)
[2022-05-11] MEDS: propranolol 10mg tablet PO SCH (08:00)
[2022-05-11] MEDS: K and/or MAG REPLACEMENT MC SCH (08:00)
[2022-05-11 10:00] VITALS: BP 145/77
[2022-05-11] MEDS: normal saline 1000ml 1,000 ML IV SCH (10:20)
[2022-05-11] MEDS: ciprofloxacin lact 400MG/200ML 200 ML IV SCH (10:20)
[2022-05-11] MEDS ORDERED: METR-159 PO (11:34)
[2022-05-11] MEDS ORDERED: CIPR-447 PO (11:34)
[2022-05-11] MEDS ORDERED: PRED20TA PO (11:34)
[2022-05-11] MEDS ORDERED: HYDR-3964 PO (11:34)
--- NOTE | 2022-05-11 14:42 | NUR ---
Patient discharge instructions reviewed with patient and patient verbalized understanding. Patients PIV x2 dc'd cannula intact. Patients home xanax medication retrieved from pharmacy and returned to patient. 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 Patient states he has all belongings
== END 2022-05-11 14:28 | disposition home or self-care (01) | DRG 249 ==
LOC: ER 03:04 → ED HOLD 04:28 → SUR 3N 17:56
PROVIDERS: ADMIT Family Medicine; ATTEND Family Medicine
DX: K52.9 Noninfective gastroenteritis and colitis, unspecified (principal); K50.911 Crohn's disease, unspecified, with rectal bleeding; Z88.5 Allergy status to narcotic agent; Z88.8 Allergy status to other drugs, medicaments and biological substances
CPT/HCPCS: 36415; 74018; 74177; 80048; 80053; 80305; 83735; 84132; 85008; 85025; 87081; 96361; 96374; 96375; 99285; G0378; J0744; J0780; J1170; J2270; J2405; J2930; J3490; J7030; J7512; Q9963; Q9967

== ENCOUNTER 2022-07-02 18:54 | Emergency (ER) | payer MEDICAID ==
[~2022-07-02] VITALS: Ht 188 cm; Wt 111.4 kg
[~2022-07-02 18:54] MED LIST changes: +ALPR1TAB7 PO; -CYCL-1 PO; +HYDR-3964 PO; -HYDR-4383 PO; -IBUP-1985 PO; +LURA60TA PO; -METH4TAB3 PO; -ONDA4TAB12 PO; -ONDA8TAB13 PO; -ONDA8TAB9 PO; -PER5325T PO; -PRED10TA PO; -PRED10TA23 PO; -PRED5TAB PO; +PROP20TA6 PO; +USTE90DI SQ
[2022-07-02 19:38] LABS: BASOPHILS % (AUTO) 0.5 % (0-1); EOSINOPHILS # (AUTO) 0.2 X10'3 (0-0.9); EOSINOPHILS % (AUTO) 2.6 % (0-6); HEMATOCRIT 39.9 % (42.0-52.0); HEMOGLOBIN 13.7 g/dl (14.0-17.9); LYMPHOCYTES # (AUTO) 2.7 X10'3 (1.1-4.8); LYMPHOCYTES % (AUTO) 34.3 % (21-51); MEAN CORPUSCULAR HEMOGLOBIN 27.5 PG (27.0-31.0); MEAN CORPUSCULAR HGB CONC 34.4 g/dL (33.0-36.5); MEAN PLATELET VOLUME 6.8 FL (7.4-10.4); MONOCYTES # (AUTO) 0.6 X10'3 (0-0.9); MONOCYTES % (AUTO) 7.1 % (2-12); NEUTROPHILS # (AUTO) 4.4 X10'3 (1.8-7.7); NEUTROPHILS % (AUTO) 55.5 % (42-75); PLATELET COUNT 312 X10'3 (140-440); RED BLOOD COUNT 4.99 X10'6 (4.70-6.10); RED CELL DISTRIBUTION WIDTH 16.1 % (11.5-14.5); WHITE BLOOD COUNT 7.8 X10'3 (4.5-11.0)
[2022-07-02 19:46] LABS: APTT 28 SECONDS (22-32)
[2022-07-02] MEDS ORDERED: normal saline 1000ML IV soln IVB ONE (19:50)
[2022-07-02] MEDS ORDERED: oxyCODONE/APAP 10/325mg tablet PO ONE (19:50)
[2022-07-02 19:51] LABS: ALANINE AMINOTRANSFERASE 42 U/L (12-78); ALBUMIN 3.7 G/DL (3.4-5.0); ALKALINE PHOSPHATASE 92 IU/L (46-116); ANION GAP 7 (8-16); ASPARTATE AMINO TRANSFERASE 22 U/L (10-37); BILIRUBIN,TOTAL 0.4 MG/DL (0.1-1.0); BLOOD UREA NITROGEN 8 MG/DL (7-18); BUN/CREATININE RATIO 7.4 (10.0-20.0); CALCIUM 9.2 MG/DL (8.5-10.1); CHLORIDE 104 MMOL/L (99-107); CREATININE 1.08 MG/DL (0.60-1.10); GLUCOSE 100 MG/DL (70-104); POTASSIUM 3.7 MMOL/L (3.5-5.1); SODIUM 142 MMOL/L (135-145); TOTAL CARBON DIOXIDE 31.4 MMOL/L (24-32); TOTAL PROTEIN 7.4 G/DL (6.4-8.2); eGFR 80 ML/MIN
[2022-07-02 20:21] LABS: LIPASE < 50 U/L (73-393)
[2022-07-02] MEDS ORDERED: morphine 4 MG/ML inj SYRINge IV ONE (21:05)
[2022-07-02] MEDS ORDERED: methylPREDNISolone sod succ 125mg/2ml vial IV ONE (21:05)
[2022-07-02] MEDS ORDERED: METH4TAB81 PO (21:37)
[2022-07-02] MEDS ORDERED: HYDR-3973 PO (21:37)
[2022-07-02 21:49] VITALS: BP 121/81
== END 2022-07-02 21:51 | disposition home or self-care (01) ==
LOC: ER 18:55
DX: K50.90 Crohn's disease, unspecified, without complications (principal); G89.29 Other chronic pain; F41.9 Anxiety disorder, unspecified; F32.9 Major depressive disorder, single episode, unspecified; F12.90 Cannabis use, unspecified, uncomplicated; Z86.14 Personal history of Methicillin resistant Staphylococcus aureus infection; Z90.49 Acquired absence of other specified parts of digestive tract; Z98.890 Other specified postprocedural states; Z88.1 Allergy status to other antibiotic agents; Z88.5 Allergy status to narcotic agent; Z79.899 Other long term (current) drug therapy
CPT/HCPCS: 36415; 80053; 83690; 85025; 85610; 85651; 85730; 96374; 96375; 99284; J2270; J2930; J7030

== ENCOUNTER 2022-07-13 19:31 | Emergency (ER) | payer MEDICAID ==
[~2022-07-13] VITALS: Ht 188 cm; Wt 113.6 kg
[~2022-07-13 19:31] MED LIST changes: +METH4TAB81 PO
[2022-07-13] MEDS ORDERED: normal saline 1000ml 1,000 ML IVB ONE (19:55)
[2022-07-13] MEDS ORDERED: glycopyrrolate 0.2mg/ml inj IV ONE (20:10)
[2022-07-13] MEDS ORDERED: diphenhydrAMINE 50 mg/ml inj IV ONE (20:10)
[2022-07-13] MEDS ORDERED: morphine 4 MG/ML inj SYRINge IV ONE (20:10)
[2022-07-13] MEDS ORDERED: normal saline 1000ML IV soln IVB ONE (20:10)
[2022-07-13] MEDS ORDERED: metoclopramide 5 mg/ml inj IV ONE (20:14)
[2022-07-13 20:17] LABS: BASOPHILS % (AUTO) 0.6 % (0-1); EOSINOPHILS # (AUTO) 0.1 X10'3 (0-0.9); EOSINOPHILS % (AUTO) 1.7 % (0-6); HEMOGLOBIN 13.5 g/dl (14.0-17.9); LYMPHOCYTES % (AUTO) 36.8 % (21-51); MEAN CORPUSCULAR HEMOGLOBIN 26.9 PG (27.0-31.0); MEAN CORPUSCULAR HGB CONC 33.6 g/dL (33.0-36.5); MEAN CORPUSCULAR VOLUME 80.1 FL (78-98); MEAN PLATELET VOLUME 6.6 FL (7.4-10.4); MONOCYTES # (AUTO) 0.7 X10'3 (0-0.9); MONOCYTES % (AUTO) 7.9 % (2-12); NEUTROPHILS # (AUTO) 4.4 X10'3 (1.8-7.7); PLATELET COUNT 323 X10'3 (140-440); RED CELL DISTRIBUTION WIDTH 16.8 % (11.5-14.5); WHITE BLOOD COUNT 8.3 X10'3 (4.5-11.0)
[2022-07-13 20:29] LABS: ALANINE AMINOTRANSFERASE 72 U/L (12-78); ALBUMIN 3.5 G/DL (3.4-5.0); ALBUMIN/GLOBULIN RATIO 0.9 (1.1-1.5); ALKALINE PHOSPHATASE 89 IU/L (46-116); ANION GAP 5 (8-16); ASPARTATE AMINO TRANSFERASE 41 U/L (10-37); BILIRUBIN,TOTAL 0.3 MG/DL (0.1-1.0); BLOOD UREA NITROGEN 6 MG/DL (7-18); BUN/CREATININE RATIO 5.8 (10.0-20.0); CALCIUM 9.3 MG/DL (8.5-10.1); CHLORIDE 105 MMOL/L (99-107); CREATININE 1.04 MG/DL (0.60-1.10); GLUCOSE 117 MG/DL (70-104); LIPASE < 50 U/L (73-393); POTASSIUM 3.5 MMOL/L (3.5-5.1); SODIUM 141 MMOL/L (135-145); TOTAL CARBON DIOXIDE 30.6 MMOL/L (24-32); TOTAL PROTEIN 7.2 G/DL (6.4-8.2); eGFR 84 ML/MIN
[2022-07-13] MEDS ORDERED: PRED20TA PO (21:54)
[2022-07-13] MEDS ORDERED: ONDA4TAB12 PO (21:54)
[2022-07-13] MEDS ORDERED: HYDR-3965 PO (22:40)
[2022-07-13 23:03] VITALS: BP 114/78
== END 2022-07-13 23:05 | disposition home or self-care (01) ==
LOC: ER 19:32
DX: R11.2 Nausea with vomiting, unspecified (principal); R10.84 Generalized abdominal pain; F12.90 Cannabis use, unspecified, uncomplicated; Z88.8 Allergy status to other drugs, medicaments and biological substances; Z88.5 Allergy status to narcotic agent
CPT/HCPCS: 36415; 80053; 83690; 85025; 96361; 96374; 96375; 99284; J1200; J2270; J2765; J3490; J7030

== ENCOUNTER 2022-09-26 15:47 | Emergency (ER) | payer MEDICAID ==
[~2022-09-26] VITALS: Ht 185.4 cm; Wt 104.5 kg
[~2022-09-26 15:47] MED LIST changes: -HYDR-3964 PO; +HYDR-3972 PO; +METH-603 PO; -METH4TAB81 PO; +OMEP40CA21 PO; +ONDA4TAB12 PO; -PRED20TA PO; +VARE1TAB24 PO
[2022-09-26 15:53] VITALS: BP 116/76; PULSE 60; O2SAT 99
[2022-09-26] MEDS ORDERED: ketorolac tromethamine 15mg/ml inj. IM ONE (15:55)
[2022-09-26] MEDS ORDERED: HYDROcodone/acetaminophen 10/325mg tab PO ONE (15:55)
[2022-09-26] MEDS ORDERED: orphenadrine citrate 60mg/2ml inj. IM ONE (19:45)
[2022-09-26] MEDS ORDERED: morphine 10mg/ml inj. IM ONE (19:45)
[2022-09-26] MEDS ORDERED: HYDR-3973 PO (19:51)
[2022-09-26 20:06] VITALS: RESP 18
== END 2022-09-26 20:11 | disposition home or self-care (01) ==
LOC: ER 15:48
DX: M41.84 Other forms of scoliosis, thoracic region (principal); G89.29 Other chronic pain; F12.90 Cannabis use, unspecified, uncomplicated; Z90.49 Acquired absence of other specified parts of digestive tract; Z86.14 Personal history of Methicillin resistant Staphylococcus aureus infection; Z88.8 Allergy status to other drugs, medicaments and biological substances; Z79.899 Other long term (current) drug therapy
CPT/HCPCS: 96372; 99284; J1885; J2274

== ENCOUNTER 2023-04-18 07:47 | Emergency (ER) | payer MEDICAID ==
[~2023-04-18] VITALS: Ht 188 cm; Wt 111.5 kg
[2023-04-18 07:59] VITALS: TEMP 98.1
[2023-04-18 08:26] LABS: BASOPHILS % (AUTO) 0.2 % (0-1); EOSINOPHILS # (AUTO) 0.1 X10'3 (0-0.9); EOSINOPHILS % (AUTO) 0.7 % (0-6); HEMATOCRIT 43.3 % (42.0-52.0); HEMOGLOBIN 14.7 g/dl (14.0-17.9); LYMPHOCYTES % (AUTO) 22.2 % (21-51); MEAN CORPUSCULAR HEMOGLOBIN 28.7 PG (27.0-31.0); MEAN CORPUSCULAR HGB CONC 33.9 g/dL (33.0-36.5); MEAN CORPUSCULAR VOLUME 84.8 FL (78-98); MEAN PLATELET VOLUME 6.6 FL (7.4-10.4); MONOCYTES # (AUTO) 0.5 X10'3 (0-0.9); MONOCYTES % (AUTO) 5.6 % (2-12); NEUTROPHILS # (AUTO) 6.5 X10'3 (1.8-7.7); NEUTROPHILS % (AUTO) 71.3 % (42-75); PLATELET COUNT 338 X10'3 (140-440); RED BLOOD COUNT 5.11 X10'6 (4.70-6.10); RED CELL DISTRIBUTION WIDTH 15.1 % (11.5-14.5); WHITE BLOOD COUNT 9.1 X10'3 (4.5-11.0)
[2023-04-18 08:40] LABS: ALANINE AMINOTRANSFERASE 47 U/L (12-78); ALBUMIN/GLOBULIN RATIO 0.9 (1.1-1.5); ALKALINE PHOSPHATASE 107 IU/L (46-116); ANION GAP 11 (8-16); ASPARTATE AMINO TRANSFERASE 17 U/L (10-37); BILIRUBIN,TOTAL 0.3 MG/DL (0.1-1.0); BLOOD UREA NITROGEN 6 MG/DL (7-18); BUN/CREATININE RATIO 5.8 (10.0-20.0); CALCIUM 9.3 MG/DL (8.5-10.1); CHLORIDE 101 MMOL/L (99-107); CREATININE 1.03 MG/DL (0.60-1.10); GLUCOSE 122 MG/DL (70-104); LIPASE 15 U/L (16-77); POTASSIUM 3.4 MMOL/L (3.5-5.1); SODIUM 142 MMOL/L (135-145); TOTAL CARBON DIOXIDE 29.6 MMOL/L (24-32); TOTAL PROTEIN 8.5 G/DL (6.4-8.2); eCRCL 121 ML/MIN; eGFR 84 ML/MIN
[2023-04-18] MEDS: LORazepam 2 mg/ml vial IV ONE (09:15)
[2023-04-18] MEDS: diphenhydrAMINE 50 mg/ml inj IV ONE (09:15)
[2023-04-18] MEDS: metoclopramide 5 mg/ml inj IV ONE (09:15)
[2023-04-18] MEDS: normal saline 1000ML IV soln IVB ONE (09:16)
[2023-04-18] MEDS: morphine 2 MG/ML inj. syringe IV ONE (09:18)
[2023-04-18 09:21] LABS: BILIRUBIN,URINE NEGATIVE (Neg); CLARITY,URINE CLEAR (Clear); COLOR,URINE YELLOW (Yellow); GLUCOSE, URINE NEGATIVE (Neg); KETONES,URINE NEGATIVE (Neg); LEUKOCYTE ESTERASE ,URINE NEGATIVE (Neg); NITRITES, URINE NEGATIVE (Neg); OCCULT BLOOD,URINE NEGATIVE (Neg); PROTEIN,URINE NEGATIVE (Neg)
[2023-04-18 09:27] LABS: UA COLLECTION TYPE URINAL
[2023-04-18] MEDS ORDERED: ONDA4TAB12 PO (10:19)
[2023-04-18] MEDS ORDERED: OXYC-138 PO (10:19)
[2023-04-18] MEDS ORDERED: NALO4SPR3 NAS (10:19)
[2023-04-18] MEDS: morphine 4 MG/ML inj SYRINge IV ONE (11:27)
[2023-04-18 11:41] VITALS: BP 134/89; PULSE 105; RESP 16; O2SAT 97
== END 2023-04-18 11:45 | disposition home or self-care (01) ==
LOC: ER 07:48
DX: R10.30 Lower abdominal pain, unspecified (principal); F12.90 Cannabis use, unspecified, uncomplicated; Z88.8 Allergy status to other drugs, medicaments and biological substances; Z88.5 Allergy status to narcotic agent; Z79.899 Other long term (current) drug therapy; Z98.890 Other specified postprocedural states
CPT/HCPCS: 36415; 80053; 81003; 83690; 85025; 96361; 96374; 96375; 96376; 99284; J1200; J2060; J2270; J2765; J7030

== ENCOUNTER 2023-05-01 10:53 | Emergency (ER) | payer MEDICAID ==
[~2023-05-01] VITALS: Ht 188 cm; Wt 112.4 kg
[~2023-05-01 10:53] MED LIST changes: +NALO4SPR3 NAS; +OXYC-138 PO
[2023-05-01 11:04] VITALS: TEMP 97.8
[2023-05-01 11:34] LABS: BASOPHILS % (AUTO) 0.3 % (0-1); EOSINOPHILS # (AUTO) 0.1 X10'3 (0-0.9); EOSINOPHILS % (AUTO) 1.5 % (0-6); HEMATOCRIT 42.3 % (42.0-52.0); HEMOGLOBIN 14.6 g/dl (14.0-17.9); LYMPHOCYTES # (AUTO) 3.8 X10'3 (1.1-4.8); LYMPHOCYTES % (AUTO) 48.5 % (21-51); MEAN CORPUSCULAR HEMOGLOBIN 29.4 PG (27.0-31.0); MEAN CORPUSCULAR HGB CONC 34.6 g/dL (33.0-36.5); MEAN PLATELET VOLUME 6.7 FL (7.4-10.4); MONOCYTES # (AUTO) 0.3 X10'3 (0-0.9); MONOCYTES % (AUTO) 4.1 % (2-12); NEUTROPHILS # (AUTO) 3.6 X10'3 (1.8-7.7); NEUTROPHILS % (AUTO) 45.6 % (42-75); PLATELET COUNT 373 X10'3 (140-440); RED BLOOD COUNT 4.98 X10'6 (4.70-6.10); RED CELL DISTRIBUTION WIDTH 14.8 % (11.5-14.5); WHITE BLOOD COUNT 7.8 X10'3 (4.5-11.0)
[2023-05-01 11:43] LABS: BILIRUBIN,URINE SMALL (Neg); CLARITY,URINE CLEAR (Clear); COLOR,URINE YELLOW (Yellow); GLUCOSE, URINE NEGATIVE (Neg); KETONES,URINE NEGATIVE (Neg); LEUKOCYTE ESTERASE ,URINE NEGATIVE (Neg); NITRITES, URINE NEGATIVE (Neg); OCCULT BLOOD,URINE NEGATIVE (Neg); PROTEIN,URINE NEGATIVE (Neg); UROBILINOGEN,URINE 0.2 E.U/dL (0.2-1.0)
[2023-05-01 11:45] LABS: APTT 27 SECONDS (22-32); INR 0.9 INR; PROTHROMBIN TIME 10.2 SECONDS (9.0-12.0)
[2023-05-01 11:48] LABS: ALBUMIN 4.1 G/DL (3.4-5.0); ANION GAP 11 (8-16); BLOOD UREA NITROGEN 8 MG/DL (7-18); BUN/CREATININE RATIO 6.7 (10.0-20.0); CALCIUM 8.9 MG/DL (8.5-10.1); CHLORIDE 104 MMOL/L (99-107); CREATININE 1.19 MG/DL (0.60-1.10); GLUCOSE 107 MG/DL (70-104); POTASSIUM 3.7 MMOL/L (3.5-5.1); SODIUM 143 MMOL/L (135-145); TOTAL CARBON DIOXIDE 28.5 MMOL/L (24-32); eCRCL 105 ML/MIN; eGFR 71 ML/MIN
[2023-05-01 11:50] LABS: UA COLLECTION TYPE CLN CATCH MIDSTREAM
[2023-05-01 11:51] LABS: MUCUS STRANDS MANY /LPF (Neg)
[2023-05-01 11:53] LABS: BACTERIA,URINE FEW /HPF (Neg); SQUAMOUS EPITHELIAL CELL,UR MODERATE /LPF (FEW); TRANSITIONAL EPI CELLS,URINE FEW /HPF
[2023-05-01] MEDS: ondansetron/PF 4mg/2ml inj IV ONE (12:20)
[2023-05-01] MEDS: morphine 4 MG/ML inj SYRINge IV ONE (12:20)
[2023-05-01] MEDS ORDERED: LORazepam 1 MG tablet PO ONE (14:25)
[2023-05-01 15:37] VITALS: BP 94/57; PULSE 58; RESP 16; O2SAT 98
== END 2023-05-01 15:42 | disposition home or self-care (01) ==
LOC: ER 10:53
DX: K50.90 Crohn's disease, unspecified, without complications (principal); G89.29 Other chronic pain; R10.9 Unspecified abdominal pain
CPT/HCPCS: 36415; 71045; 74176; 80048; 81001; 85025; 85610; 85730; 86885; 86900; 86901; 87088; 93005; 96374; 96375; 99285; J2270; J2405

== ENCOUNTER 2023-06-08 09:55 | Emergency (ER) | payer MEDICAID ==
[~2023-06-08] VITALS: Ht 188 cm; Wt 115.5 kg
[2023-06-08 09:56] VITALS: BP 135/76; PULSE 77; RESP 16; TEMP 98; O2SAT 99
[2023-06-08] MEDS: ALPRAZolam 0.5mg tablet PO ONE (10:32)
== END 2023-06-08 10:36 | disposition home or self-care (01) ==
LOC: ER 09:55
DX: F13.930 Sedative, hypnotic or anxiolytic use, unspecified with withdrawal, uncomplicated (principal); G89.29 Other chronic pain; M54.9 Dorsalgia, unspecified; F41.8 Other specified anxiety disorders; F12.90 Cannabis use, unspecified, uncomplicated; Z76.0 Encounter for issue of repeat prescription; Z88.5 Allergy status to narcotic agent; Z88.8 Allergy status to other drugs, medicaments and biological substances; Z79.899 Other long term (current) drug therapy; Z79.2 Long term (current) use of antibiotics
CPT/HCPCS: 99283

== ENCOUNTER 2023-07-30 20:50 | Emergency (ER) | payer MEDICAID ==
[~2023-07-30] VITALS: Ht 188 cm; Wt 117.0 kg
[2023-07-30 21:05] VITALS: TEMP 98
[2023-07-30 21:35] LABS: BASOPHILS % (AUTO) 0.4 % (0-1); EOSINOPHILS # (AUTO) 0.1 X10'3 (0-0.9); EOSINOPHILS % (AUTO) 1.2 % (0-6); HEMATOCRIT 36.3 % (42.0-52.0); HEMOGLOBIN 12.3 g/dl (14.0-17.9); LYMPHOCYTES # (AUTO) 3.1 X10'3 (1.1-4.8); LYMPHOCYTES % (AUTO) 40.4 % (21-51); MEAN CORPUSCULAR HEMOGLOBIN 30.2 PG (27.0-31.0); MEAN PLATELET VOLUME 6.4 FL (7.4-10.4); MONOCYTES # (AUTO) 0.6 X10'3 (0-0.9); MONOCYTES % (AUTO) 7.6 % (2-12); NEUTROPHILS # (AUTO) 3.9 X10'3 (1.8-7.7); NEUTROPHILS % (AUTO) 50.4 % (42-75); PLATELET COUNT 386 X10'3 (140-440); RED BLOOD COUNT 4.08 X10'6 (4.70-6.10); RED CELL DISTRIBUTION WIDTH 16.3 % (11.5-14.5); WHITE BLOOD COUNT 7.7 X10'3 (4.5-11.0)
[2023-07-30 21:39] LABS: ALANINE AMINOTRANSFERASE 38 U/L (12-78); ALBUMIN 3.5 G/DL (3.4-5.0); ALBUMIN/GLOBULIN RATIO 0.9 (1.1-1.5); ALKALINE PHOSPHATASE 104 IU/L (46-116); ANION GAP 8 (8-16); ASPARTATE AMINO TRANSFERASE 21 U/L (10-37); BILIRUBIN,TOTAL 0.2 MG/DL (0.1-1.0); BLOOD UREA NITROGEN 12 MG/DL (7-18); CALCIUM 9.7 MG/DL (8.5-10.1); CHLORIDE 101 MMOL/L (99-107); GLUCOSE 107 MG/DL (70-104); LIPASE 21 U/L (16-77); POTASSIUM 3.5 MMOL/L (3.5-5.1); SODIUM 137 MMOL/L (135-145); TOTAL CARBON DIOXIDE 28.2 MMOL/L (24-32); TOTAL PROTEIN 7.6 G/DL (6.4-8.2); eCRCL 104 ML/MIN; eGFR 71 ML/MIN
[2023-07-30] MEDS: ondansetron/PF 4mg/2ml inj IV ONE (23:09)
[2023-07-30] MEDS: morphine 4 MG/ML inj SYRINge IV ONE (23:10)
[2023-07-31] MEDS: morphine 4 MG/ML inj SYRINge IV ONE (00:21)
[2023-07-31] MEDS ORDERED: dexamethasone inj 6 MG in dextrose 5%-water 100 ML IV ONE (01:00)
[2023-07-31] MEDS ORDERED: PRED20TA PO (01:01)
[2023-07-31] MEDS ORDERED: ONDA8TAB13 PO (01:01)
[2023-07-31] MEDS ORDERED: OXYC-658 PO (01:01)
[2023-07-31] MEDS: dexamethasone sod phosphate 10mg/ml inj IV ONE (01:08)
[2023-07-31] MEDS: HYDROcodone/acetaminophen 5mg/325mg tablet PO ONE (01:08)
[2023-07-31 01:16] VITALS: BP 107/67; PULSE 84; RESP 16; O2SAT 100
== END 2023-07-31 01:36 | disposition home or self-care (01) ==
LOC: ER 20:51
DX: K50.90 Crohn's disease, unspecified, without complications (principal); Z88.8 Allergy status to other drugs, medicaments and biological substances; G89.29 Other chronic pain; M54.9 Dorsalgia, unspecified; F32.A Depression, unspecified; F41.9 Anxiety disorder, unspecified; F12.90 Cannabis use, unspecified, uncomplicated
CPT/HCPCS: 36415; 74176; 80053; 83690; 85025; 86885; 86900; 86901; 96374; 96375; 96376; 99285; J1100; J2270; J2405; J3490

== ENCOUNTER 2023-09-29 05:00 | Emergency (ER) | payer MEDICAID ==
[~2023-09-29] VITALS: Ht 188 cm; Wt 111.4 kg
[~2023-09-29 05:00] MED LIST changes: -NALO4SPR3 NAS; +NALO4SPR5 NAS; +ONDA-243 PO; +ONDA-245 PO; -ONDA4TAB12 PO
[2023-09-29] MEDS: normal saline 1000ml 1,000 ML IV ONE ×2 (06:45→12:32)
[2023-09-29] MEDS: ondansetron/PF 4mg/2ml inj IV ONE (06:45)
[2023-09-29] MEDS: HYDROmorphone 1 mg/ml syringe IV ONE (06:45)
[2023-09-29] MEDS: morphine 4 MG/ML inj SYRINge IV ONE ×2 (07:17→08:00)
[2023-09-29 08:00] LABS: BASOPHILS % (AUTO) 0.5 % (0-1); EOSINOPHILS # (AUTO) 0.1 X10'3 (0-0.9); EOSINOPHILS % (AUTO) 1.2 % (0-6); HEMATOCRIT 31.5 % (42.0-52.0); HEMOGLOBIN 10.6 g/dl (14.0-17.9); LYMPHOCYTES # (AUTO) 2.8 X10'3 (1.1-4.8); LYMPHOCYTES % (AUTO) 34.6 % (21-51); MEAN CORPUSCULAR HEMOGLOBIN 30.5 PG (27.0-31.0); MEAN CORPUSCULAR HGB CONC 33.6 g/dL (33.0-36.5); MEAN CORPUSCULAR VOLUME 90.9 FL (78-98); MEAN PLATELET VOLUME 7.3 FL (7.4-10.4); MONOCYTES # (AUTO) 0.5 X10'3 (0-0.9); MONOCYTES % (AUTO) 6.2 % (2-12); NEUTROPHILS # (AUTO) 4.7 X10'3 (1.8-7.7); NEUTROPHILS % (AUTO) 57.5 % (42-75); PLATELET COUNT 380 X10'3 (140-440); RED BLOOD COUNT 3.47 X10'6 (4.70-6.10); RED CELL DISTRIBUTION WIDTH 15.1 % (11.5-14.5); WHITE BLOOD COUNT 8.2 X10'3 (4.5-11.0)
[2023-09-29 08:22] LABS: ALANINE AMINOTRANSFERASE 48 U/L (12-78); ALBUMIN 2.9 G/DL (3.4-5.0); ALBUMIN/GLOBULIN RATIO 0.8 (1.1-1.5); ALKALINE PHOSPHATASE 95 IU/L (46-116); ANION GAP 6 (8-16); ASPARTATE AMINO TRANSFERASE 24 U/L (10-37); BILIRUBIN,TOTAL 0.2 MG/DL (0.1-1.0); BLOOD UREA NITROGEN 8 MG/DL (7-18); BUN/CREATININE RATIO 8.5 (10.0-20.0); CALCIUM 8.6 MG/DL (8.5-10.1); CHLORIDE 106 MMOL/L (99-107); CREATININE 0.94 MG/DL (0.60-1.10); GLUCOSE 99 MG/DL (70-104); LIPASE 30 U/L (16-77); SODIUM 139 MMOL/L (135-145); TOTAL CARBON DIOXIDE 27.3 MMOL/L (24-32); TOTAL PROTEIN 6.5 G/DL (6.4-8.2); eCRCL 132 ML/MIN; eGFR > 90 ML/MIN
[2023-09-29] MEDS ORDERED: iohexol 300mg/ml 100ml inj. ONE (08:26)
[2023-09-29 08:27] LABS: POTASSIUM 3.9 MMOL/L (3.5-5.1)
[2023-09-29] MEDS: diphenhydrAMINE 50 mg/ml inj IV ONE (09:00)
[2023-09-29] MEDS: haloperidol lactate 5mg/ml inj IVH ONE (09:34)
[2023-09-29] MEDS: methylPREDNISolone sod succ 125mg/2ml vial IV ONE (10:45)
[2023-09-29] MEDS: oxyCODONE IR 5mg (immed. release) tablet PO ONE (15:15)
[2023-09-29] MEDS ORDERED: PRED20TA PO (15:47)
[2023-09-29 15:58] VITALS: BP 157/97; PULSE 55; RESP 16; TEMP 98.6; O2SAT 95
== END 2023-09-29 15:59 | disposition home or self-care (01) ==
LOC: ER 05:00
DX: K50.90 Crohn's disease, unspecified, without complications (principal); R10.13 Epigastric pain; G89.29 Other chronic pain; M54.9 Dorsalgia, unspecified; F41.9 Anxiety disorder, unspecified; F12.90 Cannabis use, unspecified, uncomplicated; Z88.8 Allergy status to other drugs, medicaments and biological substances; Z88.5 Allergy status to narcotic agent; Z79.899 Other long term (current) drug therapy; Z98.890 Other specified postprocedural states
CPT/HCPCS: 36415; 74177; 76700; 80053; 83605; 83690; 85025; 93005; 96361; 96374; 96375; 99285; J1170; J1200; J1630; J2270; J2405; J2919; J7030; Q9967

== ENCOUNTER 2024-07-20 01:41 | Emergency (ER) | payer MEDICAID ==
[~2024-07-20] VITALS: Ht 190.5 cm; Wt 126.7 kg
[~2024-07-20 01:41] MED LIST changes: +NALO4SPR22 NAS; -NALO4SPR5 NAS
[2024-07-20 02:38] LABS: BASOPHILS % (AUTO) 0.5 % (0-1); EOSINOPHILS # (AUTO) 0.2 X10'3 (0-0.9); EOSINOPHILS % (AUTO) 3.2 % (0-6); HEMATOCRIT 35.4 % (42.0-52.0); HEMOGLOBIN 12.2 g/dl (14.0-17.9); LYMPHOCYTES # (AUTO) 2.2 X10'3 (1.1-4.8); LYMPHOCYTES % (AUTO) 28.5 % (21-51); MEAN CORPUSCULAR HEMOGLOBIN 28.5 PG (27.0-31.0); MEAN CORPUSCULAR HGB CONC 34.3 g/dL (33.0-36.5); MEAN CORPUSCULAR VOLUME 82.9 FL (78-98); MEAN PLATELET VOLUME 5.9 FL (7.4-10.4); MONOCYTES # (AUTO) 0.6 X10'3 (0-0.9); MONOCYTES % (AUTO) 7.9 % (2-12); NEUTROPHILS # (AUTO) 4.6 X10'3 (1.8-7.7); NEUTROPHILS % (AUTO) 59.9 % (42-75); PLATELET COUNT 436 X10'3 (140-440); RED BLOOD COUNT 4.27 X10'6 (4.70-6.10); RED CELL DISTRIBUTION WIDTH 16.8 % (11.5-14.5); WHITE BLOOD COUNT 7.7 X10'3 (4.5-11.0)
[2024-07-20 02:49] LABS: ALANINE AMINOTRANSFERASE 36 U/L (12-78); ALBUMIN 3.1 G/DL (3.4-5.0); ALBUMIN/GLOBULIN RATIO 0.8 (1.1-1.5); ALKALINE PHOSPHATASE 122 IU/L (46-116); ANION GAP 5 (8-16); ASPARTATE AMINO TRANSFERASE 20 U/L (10-37); BILIRUBIN,TOTAL 0.4 MG/DL (0.1-1.0); BLOOD UREA NITROGEN 7 MG/DL (7-18); BUN/CREATININE RATIO 6.7 (10.0-20.0); CALCIUM 8.9 MG/DL (8.5-10.1); CHLORIDE 104 MMOL/L (99-107); CREATININE 1.05 MG/DL (0.60-1.10); GLUCOSE 90 MG/DL (70-104); POTASSIUM 3.6 MMOL/L (3.5-5.1); SODIUM 140 MMOL/L (135-145); TOTAL CARBON DIOXIDE 30.8 MMOL/L (24-32); TOTAL PROTEIN 7.1 G/DL (6.4-8.2); eCRCL 121 ML/MIN; eGFR 82 ML/MIN
[2024-07-20] MEDS: ketorolac trometh 30MG/ML vial 30 MG/ML VIAL IM ONE (03:01)
[2024-07-20] MEDS: HYDROcodone/acetaminophen 5mg/325mg tablet PO ONE (03:49)
--- NOTE | 2024-07-20 03:52 | Physician Documentation ---
History of Present Illness ~ Chief Complaint: Flu Symptoms Stated Complaint: COUGHING/VOMITING Time Seen by MD: 01:51 Primary Medical Doctor: DR HOWARD Mode of Arrival: EMS, Ambulatory HPI 34 year old male reports cough, and flu symptoms including vomiting for several days. Reports subjective fevers, but no urinary symptoms, chest pain, abdominal pain. Medication Reconciliation Allergies: Coded Allergies: adalimumab (Verified Allergy, Unknown, 07/20/24) codeine (Verified Allergy, Unknown, 09/29/23) Scheduled Lurasidone HCl (Latuda), 1 TAB PO HS, (Reported) Methadone Hcl* (Dolophine*), 55 MG PO DAILY, (Reported) Omeprazole (Prilosec), 1 CAP PO DAILY, (Reported) Ondansetron 8mg ODT (Ondansetron Odt), 1 TAB PO Q6H Propranolol Hcl (Propranolol Hcl), 1 TAB PO BID, (Reported) Ustekinumab (Stelara), 90 MG SQ [id number], (Reported) Varenicline Tartrate (Varenicline Tartrate), 1 TAB PO BID, (Reported) Scheduled PRN Alprazolam (Alprazolam), 1 TAB PO QID PRN for anxiety, (Reported) Hydrocodone Bit/Acetaminophen (Hydrocodon-Acetaminophn 10-325 tablet), 1 TAB PO Q6H PRN for SEVERE PAIN 7-10 Naloxone HCl (Naloxone HCl), 1 SPR CHARLEEN Q10MIN PRN for sedation ONDANSETRON ODT 4mg tablet (Ondansetron Odt), 1 TABLET PO Q6H PRN for nausea/vomiting ONDANSETRON ODT 4mg tablet (Ondansetron Odt), 1 TABLET PO Q6H PRN for nausea/vomiting Oxycodone HCl/Acetaminophen (Endocet 10-325 mg Tablet), 1 TAB PO Q6H PRN for pain Past Medical History Past Medical History: *GI/HEPATOBILIARY*, Inflammatory Bowel Dz, *MUSCULOSKELETAL*, Chronic Back Pain, MRSA Abscess, Anxiety, Depression Past Surgical History: abdominal surgery, appendectomy Other Past Family History: NONCONTRIBUTORY Alcohol Use: None Drug Use: marijuana Lives with: Family Lives In: Home Occupation: disabled Review of Systems All Other Systems at this time: Reviewed and Negative Physical Exam Vital Signs: RN Vital Signs have been reviewed: Yes, Temperature: 98.1, Heart Rate: 54, Respiratory Rate: 16, BP: 120/70, Pulse Oximetry: 97, Weight: 126.700 Oxygen Flow Rate: 0 Physical Exam HEENT: PERRL, moist oral mucosa, EOMI Pulmonary: No respiratory distress CTAB Cardiac: RRR, no murmur, rub or gallop GI: nondistended, soft, nontender, no guarding, no rebound MSK: no deformity Skin: w/d/i, no rash Neuro: alert, nonfocal Psych: normal affect Progress Results/Orders Results/Orders Orders - FRITZ JURADO MD Chest,Two Views (07/20/24 01:50) Completed Orders - FRITZ JURADO MD Chest,Two Views (07/20/24 01:50) Cbc/Diff (07/20/24 02:05) CMP (07/20/24 02:05) Ketorolac Trometh 30mg/Ml Vial (Toradol (07/20/24 02:50) Hydrocodone/Apap 5/325mg Tab ([place] 5/32 (07/20/24 03:30) Vital Signs 07/20/24 07/20/24 07/20/24 07/20/24 01:51 01:58 03:01 03:49 Temp 98.1 Pulse 54 Resp 18 16 16 18 B/P (MAP) 120/70 Pulse Ox 97 O2 Flow Rate 0 07/20/24 04:35 Temp 98.1 Pulse 59 Resp 16 B/P (MAP) 113/57 Pulse Ox 96 Laboratory Tests Test 07/20/24 02:29 White Blood Count 7.7 Red Blood Count 4.27 L Hemoglobin 12.2 L Hematocrit 35.4 L Mean Corpuscular Volume 82.9 Mean Corpuscular Hemoglobin 28.5 Mean Corpuscular Hemoglobin Concent 34.3 Red Cell Distribution Width 16.8 H Platelet Count 436 Mean Platelet Volume 5.9 L Neutrophils (%) (Auto) 59.9 Lymphocytes (%) (Auto) 28.5 Monocytes (%) (Auto) 7.9 Eosinophils (%) (Auto) 3.2 Basophils (%) (Auto) 0.5 Neutrophils # (Auto) 4.6 Lymphocytes # (Auto) 2.2 Monocytes # (Auto) 0.6 Eosinophils # (Auto) 0.2 Basophils # (Auto) 0.0 CBC Comment Sodium Level 140 Potassium Level 3.6 Chloride Level 104 Carbon Dioxide Level 30.8 Anion Gap 5 L Blood Urea Nitrogen 7 Creatinine 1.05 Estimated GFR/1.73 m2 82 BUN/Creatinine Ratio 6.7 L Glucose Level 90 Calcium Level 8.9 Total Bilirubin 0.4 Aspartate Amino Transf (AST/SGOT) 20 Alanine Aminotransferase (ALT/SGPT) 36 Alkaline Phosphatase 122 H Total Protein 7.1 Albumin 3.1 L Globulin 4.0 Albumin/Globulin Ratio 0.8 L Chemistry Comments EKG/XRAY/CT/US/VASC/MRI Chest X-Ray : Interpreted By: self Views: 2 VIEW Indication: cough Lungs: normal Mediastinum: normal Ribs/Bones: normal Abdomen: normal Impression: no acute disease Medical Decision Making Findings 34 year old male as above. Vitals, exam, and workup including labs and CXR were unremarkable. Provided medications, reassurance, discharged with return precautions. Differential Dx:Considerations: Include: Allergic rhinitis, Influenza, Pharyngitis-Viral, Pneumonia, URI Departure Disposition: 01 HOME / SELF CARE / HOMELESS Impression: Primary Impression: URI (upper respiratory infection) Condition: Stable Discharge Instructions: Viral Illness Referrals: NO PRIMARY CARE PROVIDER (PCP) Education Educated: Patient Educated regarding: diagnosis, treatment, prognosis, need for follow up Signature Scribe Signature: . Attestation: . FRITZ JURADO MD July 20, 2024 03:52
--- NOTE | 2024-07-20 04:28 | RADIOLOGY REPORT ---
CHEST RADIOGRAPH Indication: cough Technique: 2 views of the chest were obtained. Comparison: None IMPRESSION: Heart appears normal in size. The lungs appear clear without focal airspace opacity, effusion, or pn eumothorax.
[2024-07-20 04:35] VITALS: BP 113/57; PULSE 59; RESP 16; TEMP 98.1; O2SAT 96
== END 2024-07-20 04:40 | disposition home or self-care (01) ==
LOC: ER 01:42
DX: J06.9 Acute upper respiratory infection, unspecified (principal); F32.A Depression, unspecified; F41.9 Anxiety disorder, unspecified; F12.90 Cannabis use, unspecified, uncomplicated; Z88.5 Allergy status to narcotic agent; Z90.49 Acquired absence of other specified parts of digestive tract
CPT/HCPCS: 36415; 71046; 80053; 85025; 96372; 99284; J1885

== ENCOUNTER 2024-08-21 15:32 | Emergency (ER) | payer MEDICAID ==
[~2024-08-21] VITALS: Ht 190.5 cm; Wt 122.0 kg
[2024-08-21 15:39] VITALS: BP 144/84; PULSE 70; TEMP 97.8; O2SAT 97
--- NOTE | 2024-08-21 17:42 | Physician Documentation ---
History of Present Illness ~ Chief Complaint: Cold, cough & congestion Stated Complaint: PNEUMONIA Time Seen by MD: 16:07 Primary Medical Doctor: DR LEE POP Patient is seen today with a history of a cough for about a month. Patient states he was seen here about a month ago and was told he had a viral illness and went home but then was still coughing and later went to his primary care and states he had a swab of his nose and then was told he had a bacterial infection of the receive some antibiotics. Patient states his kids or other people living with him also got the same viral illness shortly after he did. Patient states his main complaint today is rib pain from coughing which would be rib pain on the right side only and he states he wants a Jelm or some pain meds or cough medicine promethazine with codeine. Patient states he ran out of the Tylenol and ibuprofen that he was taken and has not been taking any Tylenol or ibuprofen since. Patient has no other concern or complaint at this time. He denies any shortness of breath or abdominal pain or nausea, vomiting, diarrhea. Medication Reconciliation Allergies: Coded Allergies: adalimumab (Verified Allergy, Unknown, 07/20/24) codeine (Verified Allergy, Unknown, 09/29/23) Scheduled Benzonatate* (Benzonatate*), 1 CAP PO Q8H Ibuprofen (Ibuprofen), 1 TAB PO Q8H Lurasidone HCl (Latuda), 1 TAB PO HS, (Reported) Methadone Hcl* (Dolophine*), 55 MG PO DAILY, (Reported) Omeprazole (Prilosec), 1 CAP PO DAILY, (Reported) Ondansetron 8mg ODT (Ondansetron Odt), 1 TAB PO Q6H Propranolol Hcl (Propranolol Hcl), 1 TAB PO BID, (Reported) Ustekinumab (Stelara), 90 MG SQ [id number], (Reported) Varenicline Tartrate (Varenicline Tartrate), 1 TAB PO BID, (Reported) Scheduled PRN Acetaminophen (Tylenol Extra Strength), 2 TAB PO Q6H PRN PRN for pain or fever Alprazolam (Alprazolam), 1 TAB PO QID PRN for anxiety, (Reported) Hydrocodone Bit/Acetaminophen (Hydrocodon-Acetaminophn 10-325 tablet), 1 TAB PO Q6H PRN for SEVERE PAIN 7-10 Naloxone HCl (Naloxone HCl), 1 SPR CHARLEEN Q10MIN PRN for sedation ONDANSETRON ODT 4mg tablet (Ondansetron Odt), 1 TABLET PO Q6H PRN for nausea/vomiting ONDANSETRON ODT 4mg tablet (Ondansetron Odt), 1 TABLET PO Q6H PRN for nausea/vomiting Oxycodone HCl/Acetaminophen (Endocet 10-325 mg Tablet), 1 TAB PO Q6H PRN for gilberto n Past Medical History Past Medical History: *GI/HEPATOBILIARY*, Inflammatory Bowel Dz, *MUSC ULOSKELETAL*, Chronic Back Pain, MRSA Abscess, Anxiety, Depression Past Surgical History: abdominal surgery, appendectomy Other Past Family History: NONCONTRIBUTORY Alcohol Use: None Drug Use: marijuana Lives with: Family Lives In: Home Occupation: disabled Review of Systems Constitutional: Denies: chills, fever, weakness Eyes: Denies: pain, blurred vision ENT: Denies: ear pain, nose pain, throat pain, mouth pain Respiratory: Denies: cough, shortness of breath Cardiovascular: Denies: chest pain, palpitations Gastrointestinal: Denies: abdominal pain, nausea, vomiting Genitourinary: Denies: burning, dysuria Male Genitalia: Denies: penile discharge, testicular pain Neurological: Denies: headache, dizziness Musculoskeletal: Denies: pain, swelling Integumentary: Denies: rash, lesions Allergic/Immunologic: Denies: hives, itching Hematologic/Lymphatic: Denies: no symptoms reported Psychiatric: Denies: depression, anxiety Physical Exam Vital Signs: Temperature: 97.8, Source: Oral, Heart Rate: 70, Respiratory Rate: 16, BP: 144/84, Pulse Oximetry: 97, Weight: 122.000 Oxygen Flow Rate: 0 Physical Exam General: Awake and Alert, no acute distress. HEENT: Conjunctiva pink, Sclera clear, Mucus Membranes moist. Neck: Supple without masses and tenderness. Resp: Unlabored. Lungs clear to auscultation bilaterally. Heart: Regular Rate and rhythm, normal S1 and S2 without murmur, rub or gallop. Chest: Patient on exam does have tenderness to palpation seemingly out of proportion to exam of the right lateral ribcage. I do not appreciate any step- offs. Abdomen: Soft and non tender no organomegaly Extremities: No cyanosis,clubbing or edema. Skin: Warm and Dry. Progress Results/Orders Results/Orders Orders - DEB BRAR PAC Steven Ribs With Pa Chest (08/21/24 17:40) Completed Orders - DEB BRAR PAC Steven Ribs With Pa Chest (08/21/24 17:40) Ketorolac Trometh 30mg/Ml Vial (Toradol (08/21/24 18:15) Acetaminophen 325mg Tablet (Tylenol Tabl (08/21/24 18:15) Vital Signs 08/21/24 15:39 Temp 97.8 Pulse 70 Resp 16 B/P (MAP) 144/84 Pulse Ox 97 O2 Flow Rate 0 EKG/XRAY/CT/US/VASC/MRI Chest X-Ray : Additional Comments Rib series interpreted by myself today shows acute nondisplaced fractures of 8th, 9th, 10th, and 11th ribs. No large effusion, no large infiltrate. DIAGNOSTIC RADIOLOGY Patient: DEB MONTILLA Medical Record: [id number] JOSEPH MOUNT STERLING : 1990, Age: 34 Sex: Male Location: ER Patient Status: [facility] ER Service Date/Time: 08/21/241739 Ordering Physician: DEB BRAR PAC Exam: STEVEN RIBS WITH PA CHEST FRONTAL CHEST AND RIGHT RIB RADIOGRAPHS HISTORY: rib pain TECHNIQUE: Multiple views of the right ribs with frontal view of the chest. COMPARISON: None. FINDINGS: The trachea is midline. The cardiac silhouette and mediastinum are within normal limits. No pneumothorax, pleural effusions, or consolidations. There are acute appearing nondisplaced fractures of the right 8th, 9th, 10th, and 11th ribs. No radiopaque foreign body. No superficial soft tissue abnormalities. Impression: Acute appearing nondisplaced fractures of the right 8th, 9th, 10th, and 11th ribs. Electronically Signed by:CRISTÓBAL HERNANDEZ MD Date & Time: 08/21/241817 Dictated by: CRISTÓBAL HERNANDEZ MD Dictation date and time: 08/21/241817 Primary Care Provider: NO PRIMARY CARE PROVIDER cc: DEB BRAR PAC ~ Medical Decision Making Findings Patient is seen today with a history of a cough for about a month. Patient states he was seen here about a month ago and was told he had a viral illness and went home but then was still coughing and later went to his primary care and states he had a swab of his nose and then was told he had a bacterial infection of the receive some antibiotics. Patient states his kids or other people living with him also got the same viral illness shortly after he did. Patient states his main complaint today is rib pain from coughing which would be rib pain on the right side only and he states he wants a Jelm or some pain meds or cough medicine promethazine with codeine. Patient states he ran out of the Tylenol and ibuprofen that he was taken and has not been taking any Tylenol or ibuprofen since. Patient has no other concern or complaint at this time. He denies any shortness of breath or abdominal pain or nausea, vomiting, diarrhea. Patient was given Toradol 30 mg IM in the ED today along with Tylenol 975 mg by mouth. Prescription of ibuprofen and Tylenol sent to patient's pharmacy for pain control of right-sided rib pain. Along with cough suppressant Tessalon Perles. Patient will follow up with primary care in 2-5 days if no better as needed sooner. X-rays taken of ribs and chest showed no sign of pneumonia and no rib fracture. Patient will return to ED with any worsening, concerning or changing symptoms. Departure Disposition: 01 HOME / SELF CARE / HOMELESS Impression: Primary Impression: Cough Qualified Codes: R05.1 - Acute cough Additional Impression: Rib pain Condition: Stable Discharge Instructions: Cough, Adult Additional Instructions: Patient was given Toradol 30 mg IM in the ED today along with Tylenol 975 mg by mouth. Prescription of ibuprofen and Tylenol sent to patient's pharmacy for pain control of right-sided rib pain. Along with cough suppressant Tessalon Perles. Patient will follow up with primary care in 2-5 days if no better as needed sooner. X-rays taken of ribs and chest showed no sign of pneumonia and no rib fracture. Patient will return to ED with any worsening, concerning or changing symptoms. Referrals: NO PRIMARY CARE PROVIDER (PCP) Prescriptions Hydrocodone Bit/Acetaminophen 5/325 MG (Jelm 5/325 MG) 5 Mg/325 Mg Tablet 1 TAB PO Q12H PRN PRN for pain for 5 Days, #10 TAB Prov: DEB BRAR 08/21/24 Ibuprofen (Ibuprofen) 800 Mg Tablet 1 TAB PO Q8H for pain for 10 Days, #30 TAB 0 Refills Prov: DEB BRAR 08/21/24 Acetaminophen (Tylenol Extra Strength) 500 Mg Tablet 2 TAB PO Q6H PRN PRN for pain or fever for 7 Days, #56 TAB Prov: DEB BRAR 08/21/24 Benzonatate* (Benzonatate*) 100 Mg Capsule 1 CAP PO Q8H for cough for 10 Days, #30 CAP Prov: DEB BRAR 08/21/24 Signature Scribe Signature: No scribe Attestation: No scribe DEB BRAR Aug 21, 2024 17:42
--- NOTE | 2024-08-21 18:20 | RADIOLOGY REPORT ---
FRONTAL CHEST AND RIGHT RIB RADIOGRAPHS HISTORY: rib pain TECHNIQUE: Multiple views of the right ribs with frontal view of the chest. COMPARISON: None. FINDINGS: The trachea is midline. The cardiac silhouette and mediastinum are within normal limits. No pneumothorax, pleural effusions, or consolidations. There are acute appearing nondisplaced fractures of the right 8th, 9th, 10th, and 11th ribs. No radiopaque foreign body. No superficial soft tissue abnormalities. Impression: Acute appearing nondisplaced fractures of the right 8th, 9th, 10th, and 11th ribs.
[2024-08-21] MEDS ORDERED: BENZ-38 PO (18:24)
[2024-08-21] MEDS ORDERED: ACET-1025 PO (18:24)
[2024-08-21] MEDS ORDERED: IBUP-1986 PO (18:24)
[2024-08-21] MEDS ORDERED: HYDR-3965 PO (18:28)
[2024-08-21 18:45] VITALS: RESP 16
[2024-08-21] MEDS: ketorolac trometh 30MG/ML vial 30 MG/ML VIAL IM STA (18:45)
[2024-08-21] MEDS: acetaminophen 325mg tablet PO STA (18:46)
== END 2024-08-21 18:52 | disposition home or self-care (01) ==
LOC: ER 15:32
DX: R05.9 Cough, unspecified (principal); R07.81 Pleurodynia; F41.9 Anxiety disorder, unspecified; F32.A Depression, unspecified; F12.90 Cannabis use, unspecified, uncomplicated; Z88.5 Allergy status to narcotic agent; Z90.49 Acquired absence of other specified parts of digestive tract; Z88.8 Allergy status to other drugs, medicaments and biological substances; Z79.899 Other long term (current) drug therapy
CPT/HCPCS: 71111; 96372; 99283; J1885

== ENCOUNTER 2024-08-25 09:41 | Emergency (ER) | payer MEDICAID ==
[~2024-08-25] VITALS: Ht 190.5 cm; Wt 125.8 kg
[~2024-08-25 09:41] MED LIST changes: +ACET-1025 PO; +BENZ-38 PO; +HYDR-3965 PO; +IBUP-1986 PO
[2024-08-25 10:01] VITALS: TEMP 97.6
--- NOTE | 2024-08-25 10:22 | RADIOLOGY REPORT ---
CHEST RADIOGRAPH Indication: RIB PAIN WITH INCREASING PAIN Technique: Frontal and lateral view of the chest was obtained Comparison: DI CHEST,TWO VIEWS on DOS: 07/20/24 FINDINGS: Lines and Tubes: None Lungs: Left lower lobe airspace disease Pleura: No effusion. No pneumothorax. Cardiomediastinal contours: Unremarkable Bones: Unremarkable IMPRESSION: Left lower lobe airspace disease.
--- NOTE | 2024-08-25 10:26 | Physician Documentation ---
History of Present Illness ~ Chief Complaint: Rib pain Stated Complaint: RIB PAIN Time Seen by MD: 13:15 Primary Medical Doctor: DR LEE POP This is a 34-year-old male who was recently treated for pneumonia presents with right-sided chest pain, patient reports that he had been seen recently and diagnosed with a broken rib on that side. Patient reports that coughing and pain is keeping him up at night. Tetanus within 5 Years?: Yes Allergies: Coded Allergies: adalimumab (Verified Allergy, Unknown, 07/20/24) codeine (Verified Allergy, Unknown, 09/29/23) Active Prescriptions See Medication Reconciliation Form. Medication Reconciliation Scheduled Benzonatate* (Benzonatate*), 1 CAP PO Q8H Ibuprofen (Ibuprofen), 1 TAB PO Q8H Lurasidone HCl (Latuda), 1 TAB PO HS, (Reported) Methadone Hcl* (Dolophine*), 55 MG PO DAILY, (Reported) Omeprazole (Prilosec), 1 CAP PO DAILY, (Reported) Ondansetron 8mg ODT (Ondansetron Odt), 1 TAB PO Q6H Propranolol Hcl (Propranolol Hcl), 1 TAB PO BID, (Reported) Ustekinumab (Stelara), 90 MG SQ [id number], (Reported) Varenicline Tartrate (Varenicline Tartrate), 1 TAB PO BID, (Reported) Scheduled PRN Acetaminophen (Tylenol Extra Strength), 2 TAB PO Q6H PRN PRN for pain or fever Alprazolam (Alprazolam), 1 TAB PO QID PRN for anxiety, (Reported) Hydrocodone Bit/Acetaminophen 5/325 MG ([place] 5/325 MG), 1 TAB PO Q12H PRN PRN for pain Hydrocodone Bit/Acetaminophen (Hydrocodon-Acetaminophn 10-325 tablet), 1 TAB PO Q6H PRN for SEVERE PAIN 7-10 Naloxone HCl (Naloxone HCl), 1 SPR CHARLEEN Q10MIN PRN for sedation ONDANSETRON ODT 4mg tablet (Ondansetron Odt), 1 TABLET PO Q6H PRN for nausea/vomiting ONDANSETRON ODT 4mg tablet (Ondansetron Odt), 1 TABLET PO Q6H PRN for nausea/vomiting Oxycodone HCl/Acetaminophen (Endocet 10-325 mg Tablet), 1 TAB PO Q6H PRN for pain Promethazine HCl/Codeine (Promethazine-Codeine Solution), 5 ML PO Q6H PRN for cough Past Medical History Past Medical History: *GI/HEPATOBILIARY*, Inflammatory Bowel Dz, *MUSCULOSKELETAL*, Chronic Back Pain, MRSA Abscess, Anxiety, Depression Past Surgical History: abdominal surgery, appendectomy Other Past Family History: NONCONTRIBUTORY Alcohol Use: None Drug Use: marijuana Lives with: Family Lives In: Home Occupation: disabled Physical Exam Vital Signs: Temperature: 97.6, Source: Temporal, Heart Rate: 67, Respiratory Rate: 18, BP: 135/81, Pulse Oximetry: 97, Weight: 125.800 Oxygen Flow Rate: 0 Physical Exam VITALS: Reviewed and as above. GENERAL: Alert, nontoxic appearing, no apparent distress. RESPIRATORY: No increased work of breathing, no respiratory distress, speaking in full clear sentences, lung sounds clear in all [place] CHEST: Tenderness to palpation to right lateral aspect without deformity, ecchymosis, crepitus, or flail chest CV: Regular rate and rhythm no murmur Progress Results/Orders Results/Orders Vital Signs 08/25/24 08/25/24 10:01 13:40 Temp 97.6 Pulse 67 67 Resp 18 18 B/P (MAP) 135/81 130/88 (102) Pulse Ox 97 95 O2 Flow Rate 0 0 Laboratory Tests Test 08/25/24 10:48 White Blood Count 7.6 Red Blood Count 4.28 L Hemoglobin 11.8 L Hematocrit 35.8 L Mean Corpuscular Volume 83.6 Mean Corpuscular Hemoglobin 27.7 Mean Corpuscular Hemoglobin Concent 33.1 Red Cell Distribution Width 17.1 H Platelet Count 408 Mean Platelet Volume 6.7 L Neutrophils (%) (Auto) 69.9 Lymphocytes (%) (Auto) 17.5 L Monocytes (%) (Auto) 8.3 Eosinophils (%) (Auto) 3.5 Basophils (%) (Auto) 0.8 Neutrophils # (Auto) 5.3 Lymphocytes # (Auto) 1.3 Monocytes # (Auto) 0.6 Eosinophils # (Auto) 0.3 Basophils # (Auto) 0.1 CBC Comment Sodium Level 142 Potassium Level 3.3 L Chloride Level 105 Carbon Dioxide Level 28.9 Anion Gap 8 Blood Urea Nitrogen 7 Creatinine 0.96 Estimated GFR/1.73 m2 > 90 BUN/Creatinine Ratio 7.3 L Glucose Level 101 Calcium Level 9.2 Albumin 3.3 L Chemistry Comments EKG/XRAY/CT/US/VASC/MRI CT : Impression CHEST RADIOGRAPH Indication: RIB PAIN WITH INCREASING PAIN Technique: Frontal and lateral view of the chest was obtained Comparison: DI CHEST,TWO VIEWS on DOS: 07/20/24 FINDINGS: Lines and Tubes: None Lungs: Left lower lobe airspace disease Pleura: No effusion. No pneumothorax. Cardiomediastinal contours: Unremarkable Bones: Unremarkable IMPRESSION: Left lower lobe airspace disease. Electronically Signed by:HANK MENESES MD Date & Time: 08/25/24 1020 Dictated by: HANK MENESES MD Dictation date and time: 08/25/24 1005 I have reviewed and agree with the radiology report. I have reviewed and interpreted the imaging as: Possible left lower lobe consolidation without significant change from previous images, no pneumothorax Medical Decision Making Findings This 34-year-old male who was recently treated for pneumonia and diagnosed with rib fractures to the right chest presented with a persistent though improving cough and right rib pain that has disturbing his sleep. A chest x-ray demonstrated possible left lower lobe consolidation though this was not significantly changed from previous images per my read, it is reassuring the patient reports his cough is improving and patient is afebrile with lab work not demonstrating evidence of systemic infection, additionally lung sounds were clear in all [place]man. As the patient feels otherwise well and his primary concern is the rib pain on his right side he will be treated for rib pain and persistent cough. Patient is otherwise well-appearing and remainder of physical exam benign. Patient is appropriate for outpatient follow up. Patient provided careful return to care precautions, follow up instructions, and home care instructions which he verbalized understanding of. Differential Dx:Considerations: Include: Chest wall contusion, Flail chest, Pneumothorax Departure Disposition: HOME / SELF CARE / HOMELESS Impression: Primary Impression: Rib pain Additional Impression: Cough Qualified Codes: R05.2 - Subacute cough Condition: Improved Additional Instructions: Please use the prescribed cough syrup to help you sleep, if your symptoms do not begin to improve in the next 4-5 days please return to medical provider including returning to the emergency department if needed. Please follow up with your primary care provider in the next few days. Please return to the emergency department for any new or worsening concerning symptoms. You have been prescribed an opioid medication, there are risks of addiction and overdose associated with the use of opioids. The risk of addiction to an opioid for increases for those suffering both from mental health and substance use disorders. The use of an opioid while taking other central nervous system depressants including but not limited to benzodiazepines or alcohol, or other opioids increases the risk of serious side effects that can include overdose or respiratory depression that can lead to serious injury or . Referrals: NO PRIMARY CARE PROVIDER (PCP) Prescriptions Promethazine HCl/Codeine (Promethazine-Codeine Solution) 6.25 Mg-10 Mg/5 Ml Syrup 5 ML PO Q6H PRN for cough for 6 Days, #120 ML 0 Refills Prov: TANGELA YANG 08/25/24 Education Educated: Patient Educated regarding: diagnosis, treatment, prognosis, need for follow up Signature Scribe Signature: No scribe Attestation: The note accurately reflects work and decisions made by me.EMI Jaffe 08/25/24 20:59 TANGELA YANG Aug 25, 2024 10:26
[2024-08-25 11:03] LABS: BASOPHILS # (AUTO) 0.1 X10'3 (0-0.2); BASOPHILS % (AUTO) 0.8 % (0-1); EOSINOPHILS # (AUTO) 0.3 X10'3 (0-0.9); EOSINOPHILS % (AUTO) 3.5 % (0-6); HEMATOCRIT 35.8 % (42.0-52.0); HEMOGLOBIN 11.8 g/dl (14.0-17.9); LYMPHOCYTES # (AUTO) 1.3 X10'3 (1.1-4.8); LYMPHOCYTES % (AUTO) 17.5 % (21-51); MEAN CORPUSCULAR HEMOGLOBIN 27.7 PG (27.0-31.0); MEAN CORPUSCULAR HGB CONC 33.1 g/dL (33.0-36.5); MEAN CORPUSCULAR VOLUME 83.6 FL (78-98); MEAN PLATELET VOLUME 6.7 FL (7.4-10.4); MONOCYTES # (AUTO) 0.6 X10'3 (0-0.9); MONOCYTES % (AUTO) 8.3 % (2-12); NEUTROPHILS # (AUTO) 5.3 X10'3 (1.8-7.7); NEUTROPHILS % (AUTO) 69.9 % (42-75); PLATELET COUNT 408 X10'3 (140-440); RED BLOOD COUNT 4.28 X10'6 (4.70-6.10); RED CELL DISTRIBUTION WIDTH 17.1 % (11.5-14.5); WHITE BLOOD COUNT 7.6 X10'3 (4.5-11.0)
[2024-08-25 11:11] LABS: ALBUMIN 3.3 G/DL (3.4-5.0); ANION GAP 8 (8-16); BLOOD UREA NITROGEN 7 MG/DL (7-18); BUN/CREATININE RATIO 7.3 (10.0-20.0); CALCIUM 9.2 MG/DL (8.5-10.1); CHLORIDE 105 MMOL/L (99-107); CREATININE 0.96 MG/DL (0.60-1.10); GLUCOSE 101 MG/DL (70-104); POTASSIUM 3.3 MMOL/L (3.5-5.1); SODIUM 142 MMOL/L (135-145); TOTAL CARBON DIOXIDE 28.9 MMOL/L (24-32); eCRCL 132 ML/MIN; eGFR > 90 ML/MIN
[2024-08-25] MEDS ORDERED: [UNRECOGNIZED DRUG - CODE] PO (13:30)
[2024-08-25 13:40] VITALS: BP 130/88; PULSE 67; RESP 18; O2SAT 95
== END 2024-08-25 13:43 | disposition home or self-care (01) ==
LOC: ER 09:42
DX: R07.81 Pleurodynia (principal); R05.9 Cough, unspecified; F32.A Depression, unspecified; F41.9 Anxiety disorder, unspecified
CPT/HCPCS: 36415; 71046; 80048; 85025; 99284

== ENCOUNTER 2024-08-26 11:11 | Inpatient (IN) | payer MEDICAID ==
[~2024-08-26] VITALS: Ht 190.5 cm; Wt 116.3 kg
[~2024-08-26 11:11] MED LIST changes: +[UNRECOGNIZED DRUG - CODE] PO
--- NOTE | 2024-08-26 12:25 | Physician Documentation ---
History of Present Illness ~ Chief Complaint: See Chief Complaint Stated Complaint: RIB PAIN Time Seen by MD: 13:46 Primary Medical Doctor: DR HOWARD HPI 34-year-old male who presents with cough and shortness of breath that has been ongoing for the past 37 days. Patient reports that he was diagnosed with pneumonia as an outpatient and underwent a 10 day course of Augmentin. He st ates that it mildly improved some of the symptoms but when he stopped the medication his symptoms continued. He states that they are getting worse. He has been coughing up some blood recently. Additionally he has been getting increasingly short of breath. He states that his right ribcage is very painful. He does have an old injury to the ribcage about six years ago however however he states that it has significantly worsened over the past two weeks. Breathing deep severely worsens the pain. Additionally he endorses fevers and chills at home. No reports of any nausea, vomiting or any other associated symptoms. Day of Onset: Aug 26, 2024 Medication Reconciliation Allergies: Coded Allergies: adalimumab (Verified Allergy, Unknown, 07/20/24) codeine (Verified Allergy, Unknown, 09/29/23) Scheduled Ibuprofen (Ibuprofen), 1 TAB PO Q8H Lurasidone HCl (Latuda), 1 TAB PO HS, (Reported) Ondansetron 8mg ODT (Ondansetron Odt), 1 TAB PO Q6H Propranolol Hcl (Propranolol Hcl), 1 TAB PO BID, (Reported) Scheduled PRN Acetaminophen (Tylenol Extra Strength), 2 TAB PO Q6H PRN PRN for pain or fever Alprazolam (Alprazolam), 1 TAB PO QID PRN for anxiety, (Reported) ONDANSETRON ODT 4mg tablet (Ondansetron Odt), 1 TABLET PO Q6H PRN for nausea/vomiting ONDANSETRON ODT 4mg tablet (Ondansetron Odt), 1 TABLET PO Q6H PRN for nausea/vomiting Promethazine HCl/Codeine (Promethazine-Codeine Solution), 5 ML PO Q6H PRN for cough Discontinued Medications Benzonatate* (Benzonatate*), 1 CAP PO Q8H Discontinued Reason: MD order Hydrocodone Bit/Acetaminophen 5/325 MG ([place] 5/325 MG), 1 TAB PO Q12H PRN PRN for pain Discontinued Reason: completed med therapy Hydrocodone Bit/Acetaminophen (Hydrocodon-Acetaminophn 10-325 tablet), 1 TAB PO Q6H PRN for SEVERE PAIN 7-10 Discontinued Reason: completed med therapy Methadone Hcl* (Dolophine*), 55 MG PO DAILY, (Reported) Discontinued Reason: patient no longer taking Naloxone HCl (Naloxone HCl), 1 SPR CHARLEEN Q10MIN PRN for sedation Discontinued Reason: patient no longer taking Omeprazole (Prilosec), 1 CAP PO DAILY, (Reported) Discontinued Reason: patient no longer taking Oxycodone HCl/Acetaminophen (Endocet 10-325 mg Tablet), 1 TAB PO Q6H PRN for pain Discontinued Reason: completed med therapy Ustekinumab (Stelara), 90 MG SQ [id number], (Reported) Discontinued Reason: patient no longer taking Varenicline Tartrate (Varenicline Tartrate), 1 TAB PO BID, (Reported) Discontinued Reason: ADR (Adverse Drug Rxn) Past Medical History Past Medical History: *GI/HEPATOBILIARY*, Inflammatory Bowel Dz, *MUSCULOSKELETAL*, Chronic Back Pain, MRSA Abscess, Anxiety, Depression Past Surgical History: abdominal surgery, appendectomy Other Past Family History: NONCONTRIBUTORY Alcohol Use: None Drug Use: marijuana Lives with: Family Lives In: Home Occupation: disabled Review of Systems All Other Systems at this time: Reviewed and Negative Physical Exam Vital Signs: Temperature: 97.4, Source: Temporal, Heart Rate: 65, Respiratory Rate: 15, BP: 130/85, Pulse Oximetry: 98, Weight: 116.300 Physical Exam I have reviewed the triage vitals. CONST: Well developed and well nourished. In no acute distress HENT: Head Atraumatic EYES: Pupils are equal, round and reactive to light. Normal conjunctiva NECK: Normal range of motion. Supple. CARDIO: Normal rate and regular rhythm. No murmurs, rubs, or gallops. S1, S2. PULM/CHEST: No respiratory distress. Lungs clear to auscultation. No wheeze. Tenderness to palpation of the right ribcage. ABD: Soft and nontender. Nondistended. Bowel sounds normal. No guarding. : Exam deferred MSK: No edema. No deformity. NEURO: Alert and oriented to person, place and time. Moving all extremities SKIN: Warm and dry. PSYCH: Normal mood and affect. Good eye contact. Progress Results/Orders Results/Orders Orders - TOM NJ MD Page Hospitalist (08/26/24 18:41) Fill Out Med Reconciliation (08/26/24 18:41) Completed Orders - TOM NJ MD Fentanyl/Pf (Fentanyl 0.05 Mg/Ml Syringe (08/26/24 18:30) Medications Received in ER Medications (Trade) Dose Ordered Sig/Rafael Route PRN Reason Start Time Stop Time Status Last Admin Dose Admin (SoluMEDROL 125mg inj) 125 mg ONCE ONCE IV 08/26/24 14:45 08/26/24 14:46 DC 08/26/24 14:56 125 MG (Zofran 4mg/2ml vial) 4 mg ONCE ONCE IV 08/26/24 14:45 08/26/24 14:46 DC 08/26/24 14:56 4 MG (Dilaudid inj.) 0.5 mg ONCE ONCE IV 08/26/24 14:45 08/26/24 14:46 DC 08/26/24 14:56 0.5 MG Sodium Chloride 1,000 ml @ 1,000 mls/hr ONCE ONCE IV 08/26/24 15:00 08/26/24 15:59 DC 08/26/24 15:13 1,000 MLS/HR Azithromycin 250 ml @ 250 mls/hr ONCE ONCE IV 08/26/24 15:00 08/26/24 15:59 DC 08/26/24 15:34 250 MLS/HR Ceftriaxone Sodium 50 ml @ 100 mls/hr ONCE ONCE IV 08/26/24 15:00 08/26/24 15:29 DC 08/26/24 15:13 100 MLS/HR (Dilaudid inj.) 1 mg ONCE ONCE IV 08/26/24 16:35 08/26/24 16:46 DC 08/26/24 16:54 1 MG (Xanax tablet) 1 mg ONCE ONCE PO 08/26/24 17:45 08/26/24 17:46 DC 08/26/24 17:53 1 MG (fentaNYL 0.05 MG/ML syringe) 50 mcg ONCE ONCE IV 08/26/24 18:30 08/26/24 18:35 DC 08/26/24 18:47 50 MCG Vital Signs 08/26/24 08/26/24 08/26/24 08/26/24 11:15 13:49 14:56 15:13 Temp 97.4 Pulse 65 69 Resp 15 16 14 14 B/P (MAP) 130/85 122/76 (91) Pulse Ox 98 99 O2 Flow Rate 0 08/26/24 08/26/24 08/26/24 08/26/24 15:24 16:26 16:54 18:16 Pulse 64 60 53 Resp 16 14 12 10 B/P (MAP) 126/80 (95) 115/74 (88) 126/82 (97) Pulse Ox 99 98 98 O2 Flow Rate 0 08/26/24 08/26/24 08/26/24 18:47 18:48 18:54 Resp 14 16 16 B/P (MAP) Laboratory Tests Test 08/26/24 14:54 08/26/24 16:31 08/26/24 16:38 White Blood Count 7.5 Red Blood Count 4.16 L Hemoglobin 11.4 L Hematocrit 34.6 L Mean Corpuscular Volume 83.1 Mean Corpuscular Hemoglobin 27.5 Mean Corpuscular Hemoglobin Concent 33.1 Red Cell Distribution Width 17.3 H Platelet Count 365 Mean Platelet Volume 6.7 L Neutrophils (%) (Auto) 69.6 Lymphocytes (%) (Auto) 17.8 L Monocytes (%) (Auto) 8.2 Eosinophils (%) (Auto) 3.8 Basophils (%) (Auto) 0.6 Neutrophils # (Auto) 5.2 Lymphocytes # (Auto) 1.3 Monocytes # (Auto) 0.6 Eosinophils # (Auto) 0.3 Basophils # (Auto) 0.0 CBC Comment Prothrombin Time 10.2 INR International Normalized Ratio 1.0 Activated Partial Thromboplast Time 25 D-Dimer 1.01 H D-Dimer Comment Coagulation Comments Sodium Level 137 Potassium Level 3.6 Chloride Level 103 Carbon Dioxide Level 27.1 Anion Gap 7 L Blood Urea Nitrogen 11 Creatinine 0.94 Estimated GFR/1.73 m2 > 90 BUN/Creatinine Ratio 11.7 Glucose Level 91 Lactic Acid Level 0.9 Calcium Level 8.9 Magnesium Level 1.8 Total Bilirubin 0.3 Aspartate Amino Transf (AST/SGOT) 15 Alanine Aminotransferase (ALT/SGPT) 18 Alkaline Phosphatase 101 Total Creatine Kinase 48 Creatine Kinase MB < 0.5 Creatine Kinase MB Relative Index Troponin I High Sensitivity < 4 L < 4 L Troponin I High Sens Percent Delta Troponin I Hi Sens Absolute Change Total Protein 6.9 Albumin 2.9 L Globulin 4.0 Albumin/Globulin Ratio 0.7 L Lipase 15 L Chemistry Comments Urine Specimen Description Urinal Urine Color Yellow Urine Clarity Slightly cloudy Urine pH 6.0 Urine Specific [place] >=1.030 Urine Protein Negative Urine Glucose (UA) Negative Urine Ketones Negative Urine Occult Blood Negative Urine Nitrite Negative Urine Bilirubin Negative Urine Urobilinogen 1.0 Urine Leukocyte Esterase Negative Urine RBC None seen Urine WBC 5-10 H Urine Squamous Epithelial Cells Few Urine Bacteria Few Urine Culture Indicated Indicated Volume Urine Centrifuged 10 ml Urine Comment Microbiology Date/Time Source Procedure Growth Status 08/26/24 17:00 Urine Urinal (Er Only) Urine Culture - Preliminary Culture received. Resulted 08/26/24 15:02 Blood Hand Left Blood Culture - Preliminary NEGATIVE (LESS THAN 24 HOURS) Resulted Medical Decision Making Findings Dr. Nj assuming care of patient: Patient presented to the emergency room with cough and chest pain as per HPI. Differentials include but are not limited to ACS, pneumonia, musculoskeletal pain, pulmonary embolisms therefore labs and imaging indicated. CT scan negative for pulmonary embolism. Imaging shows infiltrate and given patient's worsening of symptoms after antibiotics I believe he would benefit from admission. IV Rocephin and azithromycin initiated. Departure Admitted to Inpatient Unit: yes, to hospitalist Impression: Primary Impression: Pneumonia Additional Impressions: Hemoptysis Chest pain Condition: Guarded Referrals: NO PRIMARY CARE PROVIDER (PCP) Signature Scribe Signature: t Attestation: The note accurately reflects work and decisions made by me.Tom Nj MD 08/26/24 19:43 Scribed for Tom Nj MD by Mack You - ALETHEA . 08/26/24 18:19 MACK YOU NP Aug 26, 2024 12:25 VERONA URIARTE MD Aug 26, 2024 14:40 TOM NJ MD Aug 26, 2024 19:43
--- NOTE | 2024-08-26 12:29 | RADIOLOGY REPORT ---
EXAM: DI CHEST,SINGLE VIEW Indication: cough Technique: Single frontal view of the chest was obtained Comparison: DI CHEST,SINGLE VIEW on DOS: 05/01/23 FINDINGS: Lines and Tubes: None Lungs: No focal consolidation. Pleura: No effusion. No pneumothorax. Cardiomediastinal contours: Unremarkable Bones: No acute osseous abnormality. IMPRESSION: No acute cardiopulmonary disease.
--- NOTE | 2024-08-26 14:50 | ELECTROCARDIOGRAPH REPORT ---
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 Ronald Almaguer Measurements Intervals [place] Rate: 57 P: -4 TN: 172 QRS: 23 QRSD: 102 T: 0 QT: 457 QTc: 445 Interpretive Statements Sinus bradycardia Borderline T abnormalities, inferior leads Baseline wander in lead(s) V1 Electronically Signed On 08-29-2024 18:35:[address] Ronald Almaguer Please click the below link to view image of tracing.
[2024-08-26] MEDS: HYDROmorphone inj. 0.5 MG/0.5 ML DISP.SYRIN IV ONE (14:56)
[2024-08-26] MEDS: ondansetron/PF 4mg/2ml inj IV ONE (14:56)
[2024-08-26] MEDS: methylPREDNISolone sod succ 125mg/2ml vial IV ONE (14:56)
[2024-08-26] MEDS: normal saline 1000ml 1,000 ML IV ONE (15:13)
[2024-08-26] MEDS: CefTRIAXone/D5W-Rocephin 1gm 50 ML IV ONE (15:13)
[2024-08-26 15:20] LABS: BASOPHILS % (AUTO) 0.6 % (0-1); EOSINOPHILS # (AUTO) 0.3 X10'3 (0-0.9); EOSINOPHILS % (AUTO) 3.8 % (0-6); HEMATOCRIT 34.6 % (42.0-52.0); HEMOGLOBIN 11.4 g/dl (14.0-17.9); LYMPHOCYTES # (AUTO) 1.3 X10'3 (1.1-4.8); LYMPHOCYTES % (AUTO) 17.8 % (21-51); MEAN CORPUSCULAR HEMOGLOBIN 27.5 PG (27.0-31.0); MEAN CORPUSCULAR HGB CONC 33.1 g/dL (33.0-36.5); MEAN CORPUSCULAR VOLUME 83.1 FL (78-98); MEAN PLATELET VOLUME 6.7 FL (7.4-10.4); MONOCYTES # (AUTO) 0.6 X10'3 (0-0.9); MONOCYTES % (AUTO) 8.2 % (2-12); NEUTROPHILS # (AUTO) 5.2 X10'3 (1.8-7.7); NEUTROPHILS % (AUTO) 69.6 % (42-75); PLATELET COUNT 365 X10'3 (140-440); RED BLOOD COUNT 4.16 X10'6 (4.70-6.10); RED CELL DISTRIBUTION WIDTH 17.3 % (11.5-14.5); WHITE BLOOD COUNT 7.5 X10'3 (4.5-11.0)
[2024-08-26] MEDS: azithromycin/NS 500mg/250ml 250 ML IV ONE (15:34)
[2024-08-26 15:42] LABS: APTT 25 SECONDS (22-32); D-DIMER 1.01 MG/L FEU (0-0.50); PROTHROMBIN TIME 10.2 SECONDS (9.0-12.0)
[2024-08-26 16:05] LABS: ALANINE AMINOTRANSFERASE 18 U/L (12-78); ALBUMIN 2.9 G/DL (3.4-5.0); ALBUMIN/GLOBULIN RATIO 0.7 (1.1-1.5); ALKALINE PHOSPHATASE 101 IU/L (46-116); ANION GAP 7 (8-16); ASPARTATE AMINO TRANSFERASE 15 U/L (10-37); BILIRUBIN,TOTAL 0.3 MG/DL (0.1-1.0); BLOOD UREA NITROGEN 11 MG/DL (7-18); BUN/CREATININE RATIO 11.7 (10.0-20.0); CALCIUM 8.9 MG/DL (8.5-10.1); CHLORIDE 103 MMOL/L (99-107); CREATININE 0.94 MG/DL (0.60-1.10); GLUCOSE 91 MG/DL (70-104); POTASSIUM 3.6 MMOL/L (3.5-5.1); SODIUM 137 MMOL/L (135-145); TOTAL CARBON DIOXIDE 27.1 MMOL/L (24-32); TOTAL PROTEIN 6.9 G/DL (6.4-8.2); eCRCL 135 ML/MIN; eGFR > 90 ML/MIN
[2024-08-26 16:11] LABS: CREATINE KINASE 48 U/L (39-308); LIPASE 15 U/L (16-77); MAGNESIUM 1.8 MG/DL (1.5-2.4)
[2024-08-26 16:43] LABS: CREATINE KINASE MB < 0.5 ng/ml (0.3-3.6)
[2024-08-26 16:48] LABS: BILIRUBIN,URINE NEGATIVE (Neg); CLARITY,URINE SLIGHTLY CLOUDY (Clear); COLOR,URINE YELLOW (Yellow); GLUCOSE, URINE NEGATIVE (Neg); KETONES,URINE NEGATIVE (Neg); LEUKOCYTE ESTERASE ,URINE NEGATIVE (Neg); NITRITES, URINE NEGATIVE (Neg); OCCULT BLOOD,URINE NEGATIVE (Neg); PROTEIN,URINE NEGATIVE (Neg)
[2024-08-26 16:54] LABS: UA COLLECTION TYPE URINAL
[2024-08-26] MEDS: HYDROmorphone 1 mg/ml syringe IV ONE (16:54)
[2024-08-26 16:59] LABS: RBC,URINE NONE SEEN /HPF (0-2)
[2024-08-26 17:00] LABS: BACTERIA,URINE FEW /HPF (Neg); SQUAMOUS EPITHELIAL CELL,UR FEW /LPF (FEW)
[2024-08-26] MEDS ORDERED: iohexol 350MG/ML 100ml bottle IV ONE (17:19)
[2024-08-26] MEDS: ALPRAZolam 0.5mg tablet PO ONE (17:53)
--- NOTE | 2024-08-26 18:19 | RADIOLOGY REPORT ---
CTA Chest with intravenous contrast INDICATION: r/o PE COMPARISON: None TECHNIQUE: Multidetector spiral CTA of the chest was performed of the chest with intravenous contrast . PULMONARY ANGIOGRAPHY PROTOCOL was utilized using a bolus-tracking technique centered on the main p ulmonary artery. Axial, coronal and sagittal multiplanar and MIP reformats were performed. Radiation Dose : 1. Chest: CTDI volume is 25 mGy. Dose-length product is 780 mGy*cm The dose indicators for CT are the volume Computed Tomography (CT) Dose Index (CTDIvol) and the Dose Length Product (DLP), and are measured in units of mGy and mGy-cm, respectively. These indicators are not patient dose, but values generated from the CT scanner acquisition factors. The report includes radiation exposure data for exposures received during this examination. Findings: Pulmonary artery: No pulmonary embolism Lower neck: Normal thyroid. Lungs: Bibasilar consolidations may reflect pneumonia or aspiration Heart/Vascular Structures: Normal heart size. No pericardial effusion. Lymph Nodes: No adenopathy Pleura: No pleural effusion or significant pneumothorax. Musculoskeletal: No acute osseous abnormality. Soft tissues: Normal. Upper abdomen: Limited portions of the upper abdomen are unremarkable. IMPRESSION: 1. No pulmonary embolism. 2. Bibasilar consolidations may reflect pneumonia or aspiration
[2024-08-26] MEDS: fentaNYL/PF 50MCG/1 ML 2ML syringe IV ONE (18:47)
[2024-08-26] MEDS ORDERED: mag hydrox/Alum hydrox/simeth 30ml oral suspension PO PRN (19:25)
[2024-08-26] MEDS ORDERED: potassium Cl 20 mEq SR tablet PO PRN ×2 (19:25)
[2024-08-26] MEDS ORDERED: morphine 2 MG/ML inj. syringe IV PRN (19:25)
[2024-08-26] MEDS ORDERED: potassium Cl 40MEQ/1/2NS 520ml 520 ML IV PRN (19:25)
[2024-08-26] MEDS ORDERED: magnesium sulf-water 2g/50mL 50 ML IV PRN (19:25)
[2024-08-26] MEDS ORDERED: magnesium sulf-water 4G/100mL 100 ML IV PRN (19:25)
[2024-08-26] MEDS ORDERED: magnesium Cl slow-release 64mg tablet PO PRN (19:25)
[2024-08-26] MEDS ORDERED: acetaminophen 325mg tablet PO PRN ×2 (19:25)
[2024-08-26] MEDS ORDERED: ondansetron/PF 4mg/2ml inj IV PRN (19:25)
[2024-08-26] MEDS ORDERED: magnesium hydroxide 30ml (MOM) UD suspension PO PRN (19:25)
[2024-08-26] MEDS: K and/or MAG REPLACEMENT MC SCH (20:00)
[2024-08-26] MEDS: normal saline 1000ml 1,000 ML IV SCH (20:00)
[2024-08-26] MEDS: docusate sod 100mg capsule PO SCH (20:00)
[2024-08-26] MEDS: morphine 2 MG/ML inj. syringe IV PRN (20:07)
[2024-08-26] MEDS ORDERED: albuterol 2.5 MG/3 ML nebule NEB PRN (20:25)
--- NOTE | 2024-08-26 20:25 | HISTORY AND PHYSICAL-Residence ---
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 He endorses that he is using a rinvoq(lebrikizumab) for the past one year and he got sick on July 15 and visited [facility] ER on July 20 for viral pneumonia. 10 days later he visited walk- in clinic and he is on Augmentin for 10 days but he could not able to improve and still getting fever cough, shortness of breath, chest pain. Reports cough for the past 37 days, associated with green and hemoptysis. Reports chest pain, more of the right lower side of lung, aggravated with taking deep breathe for the post 37 days and associated with palpitations. Reports fever, on and off for the past few weeks. Complaint of wheezing for the past couple of days. Endorses shortness of breathe for the past 37 days, not associated with orthopnea and PND. Reports abdominal distention. He denied swelling of the legs, facial puffiness, abdominal pain, abdominal distention, recent travel history. He endorses that all his symptoms started after getting flu 37 days back. Discussed code status with the patient and patient wants to be in full code Allergies: Coded Allergies: adalimumab (Verified Allergy, Unknown, 07/20/24) codeine (Verified Allergy, Unknown, 09/29/23) Home Medications Home Medications Active Promethazine-Codeine Solution (Promethazine HCl/Codeine) 6.25 Mg-10 Mg/5 Ml Syrup 5 Ml PO Q6H PRN 6 Days Ibuprofen 800 Mg Tablet 1 Tab PO Q8H 10 Days Tylenol Extra Strength (Acetaminophen) 500 Mg Tablet 2 Tab PO Q6H PRN PRN 7 Days Ondansetron Odt (Ondansetron HCl) 8 Mg Tab.rapdis 1 Tab PO Q6H 3 Days Ondansetron Odt (Ondansetron HCl) 4 Mg Tab.rapdis 1 Tablet PO Q6H PRN Ondansetron Odt (Ondansetron HCl) 4 Mg Tab.rapdis 1 Tablet PO Q6H PRN Reported Propranolol Hcl 20 Mg Tablet 1 Tab PO BID Latuda (Lurasidone HCl) 60 Mg Tablet 1 Tab PO HS Alprazolam 1 Mg Tablet 1 Tab PO QID PRN Past Medical History Past Medical History Heart murmur Scoliosis Questionable rheumatoid arthritis Inflammatory bowel disease(ulcerative colitis and Crohn's disease spectrum from the age of 19) on immunosuppressants with lebrikizumab for the past one year on he was on Stelara injections before the Rinvoq Degenerative bone and disc disease Anxiety PTSD Depression MRSA abscess-right lower jaw Past Surgical History Surgical History Comment Abdominal surgery, appendicectomy Past Social History Social History Comment He quit smoking cigarettes for the past six months and he was smoking from the age of 19. After quitting the cigarettes heused vapes for one month Uses medical marijuana for sleep Living in home with father Denied drug use Smoking: Cigarettes Alcohol Use: None Drug Use: Marijuana Lives with: Family Lives In: Home Occupation: disabled ROS All Other Systems: Reviewed and Negative ROS Reviewed in full and negative except for positive pertinent as in HPI Exam Vitals: Vital Signs Date Time Temp Pulse Resp B/P (MAP) Pulse Ox O2 Delivery O2 Flow Rate FiO2 08/26/24 20:10 60 15 111/68 (82) 99 08/26/24 15:24 0 08/26/24 11:15 97.4 General: General: Well developed and well nourished. In no acute distress HEENT: Head Atraumatic EYES: Pupils are equal, round and reactive to light. Normal conjunctiva NECK: Normal range of motion. Supple. CARDIO: Normal rate and regular rhythm. Systolic murmur is present in mitral valve and aortic wall. rubs, or gallops. S1, S2. PULM/CHEST: No respiratory distress. Bilateral bronchial breath sounds in the basal areas. Bilateral inspiratory crepitations over lower zones lung more on the right side. Bilateral expiratory wheeze more on the right side, suprascapular on interscapular areas. tenderness to palpation of the right ribcage. ABD: Soft and nontender. Nondistended. Bowel sounds normal. No guarding. : Exam deferred MSK: No edema. Scoliosis is present. NEURO: Alert and oriented to person, place and time. Moving all extremities SKIN: Warm and dry. PSYCH: Normal mood and affect. Good eye contact. Diagnostic Data Last Recorded Lab Results: 08/26/24 1454 08/26/24 1454 Diagnostic Data: Laboratory Tests Test 08/26/24 14:54 Prothrombin Time 10.2 SECONDS (9.0-12.0) INR International Normalized Ratio 1.0 INR Activated Partial Thromboplast Time 25 SECONDS (22-32) D-Dimer 1.01 MG/L FEU (0-0.50) H D-Dimer Comment Coagulation Comments Advance Care Planning Advanced Care planning: Add on additional 30 min Additional Plan Bilateral pneumonia Failed outpatient therapy with Augmentin Covering Gram-positive, Gram-negative, Pseudomonas, MRSA Possible COPD Vitals stable CBC is normal except the anemia, hemoglobin of 11.4 CMP is normal. Troponin is negative. Lipase is negative Lactic acid is normal. PT INR is normal and D-dimer is 1.01 UA is negative for UTI Ordered influenza A and B, COVID-19 Empirically started on vancomycin , cefepime, levofloxacin with prior history of MRSA abscess, immunosuppressive therapy with Lebrikizumab-Rinvoq for inflammatory bowel disease(Crohn's disease) On incentive spirometry q.1h, albuterol q.2h PRN, DuoNebs q.4h scheduled On morphine, Tylenol for pain Mild normocytic normochromic anemia Continue to monitor h& h daily transfuse if hemoglobin is less than seven Code status: Full code Diet : Regular DVT prophylaxis: SCDs PT: Order Prognosis: Guarded [facility] resident Patient seen and examined with HIPAA compliant audio visual aid. Patient was discussed with the resident, agree with the plan as above with no changes. Makayla Damon MD Tele critical care Date of Service: Aug 26, 2024 Billing Provider: MAKAYLA DAMON MD, VENKATESH, [facility] Aug 26, 2024 20:25 MAKAYLA DAMON MD Aug 28, 2024 18:43
[2024-08-26] MEDS: levoFLOXACIN-Levaquin 750MG/D5 150 ML IV SCH (21:09)
[2024-08-26 22:00] VITALS: BP 114/64; PULSE 51; RESP 16; TEMP 97.1; O2SAT 92
[2024-08-26] MEDS ORDERED: guaiFENesin 200 MG/10 ML oral syrup UD cup PO PRN (23:15)
[2024-08-26] MEDS: ipratropium/albuterol 3ml nebule NEB SCH (23:47)
[2024-08-26 23:49] VITALS: PULSE 53; RESP 14; O2SAT 91
[2024-08-26 23:55] VITALS: PULSE 50; RESP 16
[2024-08-27] VITALS (19 sets, daily range): BP systolic 121–139; BP diastolic 71–87; PULSE 42–72; RESP 11–22; TEMP 97–97.7; O2SAT 88–98
[2024-08-27] MEDS: vancomycin/NS 1 GM ADD-VANTAGE 250 ML X 1 DOSE IV SCH (00:28)
[2024-08-27] MEDS: heparin, porcine 5000 units/ml vial SQ SCH (00:39)
[2024-08-27] MEDS: CEFEPIME 2gm in D5W 50mL 50 ML IV SCH (02:43)
[2024-08-27 06:15] LABS: BASOPHILS % (AUTO) 0.2 % (0-1); EOSINOPHILS % (AUTO) 0 % (0-6); HEMATOCRIT 34.2 % (42.0-52.0); HEMOGLOBIN 11.5 g/dl (14.0-17.9); LYMPHOCYTES # (AUTO) 0.8 X10'3 (1.1-4.8); LYMPHOCYTES % (AUTO) 10.5 % (21-51); MEAN CORPUSCULAR HGB CONC 33.6 g/dL (33.0-36.5); MEAN CORPUSCULAR VOLUME 83.4 FL (78-98); MONOCYTES # (AUTO) 0.1 X10'3 (0-0.9); MONOCYTES % (AUTO) 1.7 % (2-12); NEUTROPHILS # (AUTO) 6.9 X10'3 (1.8-7.7); NEUTROPHILS % (AUTO) 87.6 % (42-75); PLATELET COUNT 356 X10'3 (140-440); RED CELL DISTRIBUTION WIDTH 16.8 % (11.5-14.5); WHITE BLOOD COUNT 7.9 X10'3 (4.5-11.0)
[2024-08-27 06:31] LABS: ALANINE AMINOTRANSFERASE 18 U/L (12-78); ALBUMIN 2.8 G/DL (3.4-5.0); ALBUMIN/GLOBULIN RATIO 0.7 (1.1-1.5); ALKALINE PHOSPHATASE 97 IU/L (46-116); ANION GAP 10 (8-16); ASPARTATE AMINO TRANSFERASE 17 U/L (10-37); BILIRUBIN,TOTAL 0.2 MG/DL (0.1-1.0); BLOOD UREA NITROGEN 8 MG/DL (7-18); BUN/CREATININE RATIO 8.9 (10.0-20.0); CALCIUM 8.9 MG/DL (8.5-10.1); CHLORIDE 104 MMOL/L (99-107); GLUCOSE 142 MG/DL (70-104); MAGNESIUM 1.9 MG/DL (1.5-2.4); POTASSIUM 4.1 MMOL/L (3.5-5.1); SODIUM 139 MMOL/L (135-145); TOTAL CARBON DIOXIDE 25.5 MMOL/L (24-32); TOTAL PROTEIN 7.1 G/DL (6.4-8.2); eCRCL 141 ML/MIN; eGFR > 90 ML/MIN
[2024-08-27 10:29] LABS: C-REACTIVE PROTEIN 6.04 MG/DL (0.0-0.5)
[2024-08-27] MEDS ORDERED: ALPRAZolam 0.5mg tablet PO PRN (11:05)
[2024-08-27] MEDS ORDERED: codeine/proMETHazine 5ml UD syrup PO PRN (11:05)
[2024-08-27] MEDS ORDERED: METH5SOL PO (11:09)
[2024-08-27 13:37] LABS: URINE AMPHETAMINE SCREEN POSITIVE (Neg); URINE BARBITUATE SCREEN NEGATIVE (Neg); URINE BENZODIAZEPINES SCREEN POSITIVE (Neg); URINE CANNABINOID SCREEN POSITIVE (Neg); URINE COCAINE SCREEN NEGATIVE (Neg); URINE METHADONE SCREEN POSITIVE (Neg); URINE OPIATE SCREEN POSITIVE (Neg); URINE PHENCYCLIDINE SCREEN NEGATIVE (Neg)
[2024-08-27] MEDS ORDERED: methadone 10mg tablet PO SCH (13:50)
[2024-08-27] MEDS: lactobacillus rhamnosus 10,000 MMU CELLS/CAPSULE PO SCH (13:58)
[2024-08-27] MEDS: methadone 10mg tablet PO ONE (14:09)
[2024-08-27] MEDS: ALPRAZolam 0.5mg tablet PO PRN (14:11)
--- NOTE | 2024-08-27 14:55 | CONSULTATION REPORT - RESIDENT ---
Consult Providers to CC Resident Creating Document: KAYLENE STARKEY RES History of Present Illness Reason for Admit\Complaint: Worsening respiratory symptoms History of Present Illness The patient is a 34-year-old male with a history of inflammatory bowel disease (IBD) on Rinvoq (upadacitinib) for the past year, who presents with a 37-day history of worsening respiratory symptoms. His symptoms began after a choking episode one month ago, which he attributes to the onset of his illness. Shortly after, he developed a cough that has progressively worsened and is now associated with green sputum production, occasional hemoptysis, and pleuritic chest pain localized to the right lower lung region, aggravated by deep inspiration. He endorses intermittent fevers over the past few weeks, shortness of breath without orthopnea or paroxysmal nocturnal dyspnea (PND), and wheezing that started a few days ago. He reports that his symptoms began after an illness diagnosed as viral pneumonia on July 20, for which he was initially evaluated at [facility] ER. Following this, he was prescribed a 10-day course of Augmentin at a walk-in clinic but experienced no improvement, prompting his visit today. The patients IBD was diagnosed at the age of 19 and is characterized by severe inflammation involving both Crohns disease and ulcerative colitis features. Over the years, he has undergone 10 colonoscopies, with his most recent one performed by Dr. Connors, revealing strictures and active inflammation. He has been informed that 6 cm of his colon requires surgical resection due to disease severity. He initially failed therapy with adalimumab (Humira) and two other biologic agents before transitioning to Rinvoq, which he has been on for the past year with moderate disease control. He follows closely with Dr. Maldonado at [facility] for his IBD management and is scheduled for his next follow-up in October. The patient has a significant history of respiratory and systemic conditions, including three prior episodes of pneumonia, a heart murmur, and scoliosis. His history also includes a MRSA abscess in the right jaw, managed without recurrence. He denies recent travel, contact with sick individuals, or significant exposures but acknowledges smoking cigarettes from age 19 until six months ago, with a brief period of vaping after quitting. He uses medical marijuana for sleep and denies illicit drug use, although urine toxicology is positive for methamphetamines and benzodiazepines, which he attributes to possible contamination or stress-related relapse. In addition to his respiratory complaints, the patient reports abdominal bloating but denies significant abdominal pain, nausea, vomiting, or changes in bowel habits. He has mild anemia (hemoglobin 11.4 g/dL) but no overt symptoms of bleeding. He remains on his regular home medications, including Rinvoq, alprazolam, lurasidone (Latuda), and propranolol, and endorses adherence. He is concerned about the progression of his symptoms and the impact on his chronic health conditions, particularly his IBD and recurrent respiratory infections. Allergies: Coded Allergies: adalimumab (Verified Allergy, Unknown, 07/20/24) codeine (Verified Allergy, Unknown, 09/29/23) Home Medications Home Medications Active Methadone HCl 5 Mg/5 Ml Solution 148 Ml PO HS 15 Days Promethazine-Codeine Solution (Promethazine HCl/Codeine) 6.25 Mg-10 Mg/5 Ml Syrup 5 Ml PO Q6H PRN 6 Days Ibuprofen 800 Mg Tablet 1 Tab PO Q8H 10 Days Tylenol Extra Strength (Acetaminophen) 500 Mg Tablet 2 Tab PO Q6H PRN PRN 7 Days Ondansetron Odt (Ondansetron HCl) 8 Mg Tab.rapdis 1 Tab PO Q6H 3 Days Ondansetron Odt (Ondansetron HCl) 4 Mg Tab.rapdis 1 Tablet PO Q6H PRN Ondansetron Odt (Ondansetron HCl) 4 Mg Tab.rapdis 1 Tablet PO Q6H PRN Reported Propranolol Hcl 20 Mg Tablet 1 Tab PO BID Latuda (Lurasidone HCl) 60 Mg Tablet 1 Tab PO HS Alprazolam 1 Mg Tablet 1 Tab PO QID PRN Past Medical History Past Medical History Inflammatory bowel disease(ulcerative colitis and Crohn's disease spectrum from the age of 19) on immunosuppressants with lebrikizumab for the past one year on he was on Stelara injections before the Rinvoq Degenerative bone disease Anxiety PTSD Depression Past Surgical History Surgical History Comment Abdominal surgery, Appendicectomy Past Social History Social History Comment Quit smoking 6 months ago, claims of quitting drug use (heroin) 9 years ago, however his U tox was positive for fentanyl, benzodiazepines, cannabinoids, amphetamines ROS ROS Reviewed in full. All negative except for pertinent positive HPI. Exam Vitals: Vital Signs Date Time Temp Pulse Resp B/P (MAP) Pulse Ox O2 Delivery O2 Flow Rate FiO2 6/25/25 11:47 68 16 98 Nasal Cannula* 1 24 08/27/24 11:00 97.7 125/76 (92) General: Awake , alert, and oriented x4, resting comfortably in the bed, in no acute distress HEENT: Atraumatic, normocephalic, EOMI, anicteric sclera ; pink conjunctiva Neck: Trachea midline. Supple, full range of motion, no JVD Cardiac: Regular rhythm, regular rate with systolic murmurs all over the mitral area. Respiratory: Equal breath sounds bilaterally, no tachypnea, no wheezing ,rub or rales, Chest wall is symmetric and without deformity. Tenderness present on palpation at right lower rib region Gastrointestinal: Abdomen symmetric, non-distended, soft, non-tender, normal bowel sounds x4 quadrant, normoactive, no hepatosplenomegaly Musculoskeletal: No pedal edema, no cyanosis Neurological: Speech is clear, alert, and oriented x 4. No motor or sensory deficit, deep tendon reflexes normal, cerebellar intact. Cranial nerves II-XII intact. Skin: Warm and dry Diagnostic Data Last Recorded Lab Results: 08/27/24 0536 08/27/24 0536 Diagnostic Data: Laboratory Tests Test 08/26/24 14:54 Prothrombin Time 10.2 SECONDS (9.0-12.0) INR International Normalized Ratio 1.0 INR Activated Partial Thromboplast Time 25 SECONDS (22-32) D-Dimer 1.01 MG/L FEU (0-0.50) H D-Dimer Comment Coagulation Comments Additional Plan 1. Inflammatory Bowel Disease (Crohns Disease) Long-standing Crohns with strictures and chronic inflammation; prior colonoscopy by Dr. Connors revealed active disease with significant inflammation. On Rinvoq with good adherence and tolerability, despite immunosuppression risks contributing to CAP. Failed prior therapies with Humira and others. Plan: Continue Rinvoq (upadacitinib) as per current regimen. Ensure GI follow-up with Dr. Maldonado at [facility] and at local outpatient clinic starting in October. Monitor for signs of exacerbation, strictures, or complications requiring surgical intervention. 2. Acute Hypoxemic Respiratory Failure with Community-Acquired Pneumonia (CAP) Likely post-viral superimposed bacterial pneumonia, given persistent symptoms despite Augmentin. Immunosuppression from Rinvoq (upadacitinib) increases susceptibility. CTA findings: Bilateral lower lobe consolidations. Plan: Continue IV levofloxacin 750 mg daily for Gram-positive, Gram-negative, and atypical coverage. Discontinued cefepime and vancomycin based on lack of evidence for resistant pathogens or MRSA. Monitor for clinical improvement, with repeat blood and sputum cultures. Incentive spirometry and flutter valve therapy. 3. Substance Use Disorder Urine toxicology positive for methamphetamines and benzodiazepines. Plan: Substance use navigator and medical social worker consulted. Address triggers for use and provide support resources. 4. Anxiety and Depression Long-standing history with current medications including alprazolam and Latuda. Plan: Continue home medications. Reassess mental health in outpatient setting and adjust treatment as needed. DVT Prophylaxis:Sequential compression devices (SCDs) for prophylaxis given current immobility. Prognosis Guarded, considering underlying chronic disease, immunosuppression, and substance use. Reinforce follow-up plans and multidisciplinary care coordination. Kaylene Starkey IM Resident, PGY1 Date of Service: Aug 27, 2024 Billing Provider: OCHOA DIAS MD, GAURAV, RES Aug 27, 2024 14:55
--- NOTE | 2024-08-27 18:14 | PROGRESS NOTE- Residence ---
Progress Note - Resident Providers to CC Resident Creating Document: HERMELINDA MCKEON, RES ~ Antibiotic Timeout Antibiotic Ordered?: Yes Subjective The patient was seen and examined at bedside today. He reports being tired. He also has pain in his right lower chest wall. Reports that he had multiple rib fractures in the past. Producing copious amounts of sputum. Sent for culture. Urine drug screen positive for methamphetamines and cannabinoids. Objective Vital Signs Date Time Temp Pulse Resp B/P (MAP) Pulse Ox O2 Delivery O2 Flow Rate FiO2 08/27/24 15:52 65 16 Nasal Cannula 1.0 08/27/24 15:44 93 24 08/27/24 15:00 97.7 121/74 (90) Result Diagram: 08/27/24 0536 08/27/24 0536 Adult male, pale appearing, alert and oriented x4, not in acute distress Head: Normocephalic with an atraumatic Eyes: Pupils- 3mm, reacting to light, conjunctiva- anicteric Nose and throat: No polyps, septum - normal, no mucosal ulcers Neck: Supple, no lymphadenopathy, no carotid bruit Respiratory: No use of accessory muscles of respiration, Bilateral normal vesicular breath sounds heard. No wheeze, rhochi or creps Cardiac: S1-S2 heard, rhythm regular, no gallop/murmur Abdomen: non distended, lower abdominal tenderness present, no organomegaly, bowel sounds - heard Extremities: no clubbing, no pedal edema, no deformities, peripheral pulses - 2+ Skin: warm and dry, no rash, no purpura Neuro: No focal deficit, gross cranial nerve exam - normal Coagulation Studies Laboratory Tests Test 08/26/24 14:54 Prothrombin Time 10.2 SECONDS (9.0-12.0) INR International Normalized Ratio 1.0 INR Activated Partial Thromboplast Time 25 SECONDS (22-32) D-Dimer 1.01 MG/L FEU (0-0.50) H D-Dimer Comment Coagulation Comments Assessment Assessment A 34-year-old male with past medical history of IBD, scoliosis, degenerative disc disease, substance abuse disorder, presented to the ED with chest pain, cough, shortness of breath and fevers. He is being admitted into the hospital for further evaluation and management. Plan Plan Acute hypoxemic respiratory failure Community-acquired superimposed bacterial pneumonia Postviral Discontinued IV cefepime and vancomycin. Continue IV levofloxacin for gram +ve, gram -ve and atypicals. Incentive spirometry and flutter valve. CTA revealed bilateral lower lobe consolidations. Follow up with blood cultures and sputum cultures. No leukocytosis, normal procalcitonin and lactic acid. IBD (Crohn's disease) Patient is on Rinvoq. GI is following the patient. He will follow up with Dr. Garrison in outpatient setting starting from October. Continue follow up with [facility], Dr. Maldonado. Substance use disorder Urine toxicology screen positive methamphetamines and benzodiazepines. Substance use navigator and case management social worker consulted. Anxiety/depression Continue home medications. Code Status: Full code DVT Prophylaxis: Heparin Analgesia/Sedation: Methadone Lines/Tubes: PIV Nutrition: Regular diet PT: Ordered Disposition: Continue care in medical woods. Continue IV antibiotics. guest services manager for substance abuse. Avoid opioids. Hermelinda Mckeon MD Internal Medicine Resident PGY-1 Date of Service: Aug 27, 2024 Billing Provider: LALA IBRAHIM MD,HERMELINDA WERNER, RES Aug 27, 2024 18:14
[2024-08-27] MEDS ORDERED: lactobacillus rhamnosus 10,000 MMU CELLS/CAPSULE PO SCH (20:00)
[2024-08-27] MEDS: lurasidone 60mg tablet PO SCH (21:00)
[2024-08-27] MEDS: VANCOMYCIN LEVEL IV ONE (21:30)
[2024-08-27] MEDS: HYDROmorphone inj. 0.5 MG/0.5 ML DISP.SYRIN IV ONE (22:55)
[2024-08-28] VITALS (10 sets, daily range): BP systolic 112–145; BP diastolic 64–80; PULSE 54–98; RESP 12–19; TEMP 97.4–97.8; O2SAT 93–97
[2024-08-28] MEDS: HYDROcodone/acetaminophen 10/325mg tab PO ONE (06:23)
[2024-08-28 09:04] LABS: BASOPHILS # (AUTO) 0.1 X10'3 (0-0.2); BASOPHILS % (AUTO) 0.9 % (0-1); EOSINOPHILS # (AUTO) 0.1 X10'3 (0-0.9); MEAN CORPUSCULAR HGB CONC 33.2 g/dL (33.0-36.5); MEAN PLATELET VOLUME 7.2 FL (7.4-10.4); MONOCYTES # (AUTO) 0.5 X10'3 (0-0.9); NEUTROPHILS # (AUTO) 7.2 X10'3 (1.8-7.7)
[2024-08-28 09:06] LABS: HEMATOCRIT 34.9 % (42.0-52.0); HEMOGLOBIN 11.6 g/dl (14.0-17.9); LYMPHOCYTES # (AUTO) 2.3 X10'3 (1.1-4.8); LYMPHOCYTES % (AUTO) 22.9 % (21-51); MEAN CORPUSCULAR HEMOGLOBIN 27.7 PG (27.0-31.0); MEAN CORPUSCULAR VOLUME 83.4 FL (78-98); MONOCYTES % (AUTO) 4.9 % (2-12); NEUTROPHILS % (AUTO) 70.3 % (42-75); PLATELET COUNT 373 X10'3 (140-440); RED BLOOD COUNT 4.18 X10'6 (4.70-6.10); RED CELL DISTRIBUTION WIDTH 16.7 % (11.5-14.5); WHITE BLOOD COUNT 10.2 X10'3 (4.5-11.0)
[2024-08-28 09:31] LABS: ALANINE AMINOTRANSFERASE 17 U/L (12-78); ALBUMIN 2.7 G/DL (3.4-5.0); ALBUMIN/GLOBULIN RATIO 0.7 (1.1-1.5); ALKALINE PHOSPHATASE 95 IU/L (46-116); ANION GAP 6 (8-16); ASPARTATE AMINO TRANSFERASE 13 U/L (10-37); BILIRUBIN,TOTAL 0.2 MG/DL (0.1-1.0); BLOOD UREA NITROGEN 11 MG/DL (7-18); BUN/CREATININE RATIO 11.8 (10.0-20.0); CALCIUM 8.8 MG/DL (8.5-10.1); CHLORIDE 104 MMOL/L (99-107); CREATININE 0.93 MG/DL (0.60-1.10); GLUCOSE 94 MG/DL (70-104); MAGNESIUM 2.1 MG/DL (1.5-2.4); POTASSIUM 3.3 MMOL/L (3.5-5.1); SODIUM 138 MMOL/L (135-145); TOTAL CARBON DIOXIDE 28.5 MMOL/L (24-32); TOTAL PROTEIN 6.7 G/DL (6.4-8.2); eCRCL 136 ML/MIN; eGFR > 90 ML/MIN
--- NOTE | 2024-08-28 12:14 | PROGRESS NOTE- Residence ---
Progress Note - Resident Providers to CC Resident Creating Document: KAYLENE STARKEY RES ~ Antibiotic Timeout Antibiotic Ordered?: Yes Subjective The patient was seen and examined at bedside today. No acute overnight symptoms Objective Vital Signs Date Time Temp Pulse Resp B/P (MAP) Pulse Ox O2 Delivery O2 Flow Rate FiO2 08/28/24 11:23 84 16 Room Air 0.0 08/28/24 11:17 97 21 08/28/24 11:00 97.4 139/80 (99) Result Diagram: 08/28/24 0841 08/28/24 0841 Awake , alert, and oriented x4, resting comfortably in the bed, in no acute distress HEENT: Atraumatic, normocephalic, EOMI, anicteric sclera ; pink conjunctiva Neck: Trachea midline. Supple, full range of motion, no JVD Cardiac: Regular rhythm, regular rate with systolic murmurs all over the precordium. Respiratory: Equal breath sounds bilaterally, no tachypnea, no wheezing ,rub or rales, Chest wall is symmetric and without deformity. Gastrointestinal: Abdomen symmetric, non-distended, soft, non-tender, normal bowel sounds x4 quadrant, normoactive, no hepatosplenomegaly Musculoskeletal: Right lower extremity: Purple, , tender scaly, with chronic ulcer present with clear demarcation [id number]. Pulses felt Left lower extremity: Purple tender scaly with chronic ulcers present with clear demarcation [id number], multiple large petechia, pulses could not be felt Neurological: Speech is clear, alert, and oriented x 4. No motor or sensory deficit, deep tendon reflexes normal, cerebellar intact. Cranial nerves II-XII intact. Skin: Warm and dry Coagulation Studies Laboratory Tests Test 08/26/24 14:54 Prothrombin Time 10.2 SECONDS (9.0-12.0) INR International Normalized Ratio 1.0 INR Activated Partial Thromboplast Time 25 SECONDS (22-32) D-Dimer 1.01 MG/L FEU (0-0.50) H D-Dimer Comment Coagulation Comments Advance Care Planning Advanced Care plannin - 30 Minutes Assessment Assessment A 34-year-old male with past medical history of IBD, scoliosis, degenerative disc disease, substance abuse disorder, presented to the ED with chest pain, cough, shortness of breath and fevers. He is being admitted into the hospital for further evaluation and management. Plan Plan 1. Inflammatory Bowel Disease (Crohns Disease) Long-standing Crohns with strictures and chronic inflammation; prior colonoscopy by Dr. Connors revealed active disease with significant inflammation. On Rinvoq with good adherence and tolerability, despite immunosuppression risks contributing to CAP. Failed prior therapies with Humira and others. Plan: Continue Rinvoq (upadacitinib) as per current regimen. Ensure GI follow-up with Dr. Maldonado at [facility] and at local outpatient clinic starting in October. Patient will require regular monitoring for signs of exacerbation,or complications. 2. Acute Hypoxemic Respiratory Failure with Community-Acquired Pneumonia (CAP) Likely post-viral superimposed bacterial pneumonia, given persistent symptoms despite Augmentin. Immunosuppression from Rinvoq (upadacitinib) increases susceptibility. CTA findings: Bilateral lower lobe consolidations. Plan: Continue IV levofloxacin 750 mg daily for Gram-positive, Gram-negative, and atypical coverage. Monitor for clinical improvement, with repeat blood and sputum cultures. Incentive spirometry and flutter valve therapy. Further management per primary team 3. Substance Use Disorder Urine toxicology positive for methamphetamines and benzodiazepines. Plan: Substance use navigator and high school social studies tutor consulted. Address triggers for use and provide support resources. 4. Anxiety and Depression Long-standing history with current medications including alprazolam and Latuda. Plan: Continue home medications. DVT Prophylaxis: OJs Kayleen Starkey IM Resident, PGY1 Date of Service: Aug 28, 2024 Billing Provider: OCHOA DIAS MD, GAURAV, RES Aug 28, 2024 12:14
[2024-08-28] MEDS ORDERED: [UNRECOGNIZED DRUG - CODE] PO (12:29)
[2024-08-28] MEDS ORDERED: LACT1CAP26 PO (12:29)
[2024-08-28] MEDS ORDERED: ALBU18HF2 IH (12:29)
[2024-08-28] MEDS ORDERED: LEVO750T68 PO (12:29)
[2024-08-28] MEDS: methadone 10mg tablet PO SCH (13:13)
[2024-08-28] MEDS ORDERED: BENZ-38 PO (14:15)
--- NOTE | 2024-08-28 15:55 | DISCHARGE SUMMARY-Residence ---
Discharge Summary Providers to Resident Creating Document: BERTRAM MCKEON, RES ~ Discharge Summary Admission Diagnosis: PNEUMONIA Hospital Course DATE OF ADMISSION: 08/26/2024 DATE OF DISCHARGE: 08/28/2024 Imaging: X-ray chest 08/26/2024: No acute cardiopulmonary disease. CTA chest 08/26/2024: 1. No pulmonary embolism. 2. Bibasilar consolidations may reflect pneumonia or aspiration. Discharge Diagnosis\Comment: Acute hypoxemic respiratory failure Community-acquired superimposed bacterial pneumonia covering Gram-positive and Gram-negative organisms Postviral IBD (Crohn's disease) Substance use disorder Anxiety/depression Operations\Procedures: None Consultants: Dr. Vaughn, keg raiser Complications: None Condition on DC: Stable New Medications: Albuterol Sulfate (Ventolin Hfa) 90 Mcg Hfa.aer.ad 2 PUFFS IH 5XD PRN for SOB or wheezing, #1 INHALER Benzonatate* (Benzonatate*) 100 Mg Capsule 1-2 CAP PO Q6H PRN for cough for 5 Days, #30 CAP Levofloxacin (Levofloxacin) 750 Mg Tablet 1 TAB PO DAILY for 7 Days, #7 TAB Lactobacillus Rhamnosus (Culturelle) 10 Billion Cell Capsule 93361 MMU PO BID for 60 Days, #120 CAP Continued Medications: Acetaminophen (Tylenol Extra Strength) 500 Mg Tablet 2 TAB PO Q6H PRN PRN for pain or fever for 7 Days, #56 TAB Alprazolam (Alprazolam) 1 Mg Tablet 1 TAB PO QID PRN for anxiety Ibuprofen (Ibuprofen) 800 Mg Tablet 1 TAB PO Q8H for pain for 10 Days, #30 TAB 0 Refills Lurasidone HCl (Latuda) 60 Mg Tablet 1 TAB PO HS Methadone HCl (Methadone HCl) 5 Mg/5 Ml Solution 148 ML PO HS for 15 Days, #15 ML 0 Refills ONDANSETRON ODT 4mg tablet (Ondansetron Odt) 4 Mg Tab.rapdis 1 TABLET PO Q6H PRN for nausea/vomiting, #12 TABLET Promethazine HCl/Codeine (Promethazine-Codeine Solution) 6.25 Mg-10 Mg/5 Ml Syrup 5 ML PO Q6H PRN for cough for 6 Days, #120 ML 0 Refills (This prescription has been renewed) Propranolol Hcl (Propranolol Hcl) 20 Mg Tablet 1 TAB PO BID Discontinued Medications: Ondansetron 8mg ODT (Ondansetron Odt) 8 Mg Tab.rapdis 1 TAB PO Q6H for nausea/vomiting for 3 Days, #12 TAB 0 Refills ONDANSETRON ODT 4mg tablet (Ondansetron Odt) 4 Mg Tab.rapdis 1 TABLET PO Q6H PRN for nausea/vomiting, #12 TABLET Discharge Summary: History of presenting illness by admitting physician: A 34-year-old 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 He endorses that he is using a rinvoq(lebrikizumab) for the past one year and he got sick on July 15 and vi sited [facility] ER on July 20 for viral pneumonia. 10 days later he visited walk-in clinic and he is on Augmentin for 10 days but he could not able to improve and still getting fever cough, shortness of breath, chest pain. Reports cough for the past 37 days, associated with green and hemoptysis. Reports chest pain, more of the right lower side of lung, aggravated with taking deep breathe for the post 37 days and associated with palpitations. Reports fever, on and off for the past few weeks. Complaint of wheezing for the past couple of days. Endorses shortness of breathe for the past 37 days, not associated with orthopnea and PND. Reports abdominal distention. He denied swelling of the legs, facial puffiness, abdominal pain, abdominal distention, recent travel history. He endorses that all his symptoms started after getting flu 37 days back. Course in the hospital: In the ED, patient did not have any leukocytosis, normal procalcitonin, lactic acid. Chest x-ray showed no acute intrathoracic abnormality. D-dimer was done, elevated 1.01, CTA chest was done to rule out PE. COVID negative. There was no pulmonary embolism evidenced but there were bilateral lower lobe consolidations. Started the patient on IV levofloxacin, breathing treatments with ipratropium/albuterol, incentive spirometry and flutter valve q.1h while awake. Blood cultures and sputum cultures showed no growth till date. No documented fever during his course of hospital stay. Continued all his home medications including methadone. Urine drug screen was done which was positive for opiates, fentanyl, amphetamines, benzodiazepines, cannabinoids. Patient received opioids and fentanyl in the ER, takes Adderall therefore positive for amphetamines, on Xanax therefore positive for benzodiazepines, on prescription cannabinoid gummies. He has been clean for nine years. He was seen by our substance use navigator. Patient was also seen by a keg raiser for IBD. He will follow up with the GI specialist, Dr. Vaughn from October. On the day of discharge, the patient was stable and had no new complaints. He was eager to go home. He was sent home on p.o. Levaquin. Advice at discharge: Follow up with PCP in one week. Continue the antibiotic levaquin 750 mg once daily for one week. You have received the antibiotic levofloxacin IV for 2 days, duonebs breathing treatments, while you were in the hospital. Continue incentive spirometry and flutter valve. Ventolin inhaler as and when needed for shortness of breath and wheezing. Continue follow up with the methadone clinic. Follow up with Dr. Vaughn, keg raiser from October for IBD. And continue follow up with [facility]. In the event of worsening of symptoms, call 911 or go to the ER immediately. Examination at discharge: Adult male, pale appearing, alert and oriented x4, not in acute distress Head: Normocephalic with an atraumatic Eyes: Pupils- 3mm, reacting to light, conjunctiva- anicteric Nose and throat: No polyps, septum - normal, no mucosal ulcers Neck: Supple, no lymphadenopathy, no carotid bruit Respiratory: No use of accessory muscles of respiration, Bilateral normal vesicular breath sounds heard. No wheeze, rhochi or creps Cardiac: S1-S2 heard, rhythm regular, no gallop/murmur Abdomen: non distended, no tenderness, no organomegaly, bowel sounds - heard Extremities: no clubbing, no pedal edema, no deformities, peripheral pulses - 2+ Skin: warm and dry, no rash, no purpura Neuro: No focal deficit, gross cranial nerve exam - normal Vital Signs Date Time Temp Pulse Resp B/P (MAP) Pulse Ox O2 Delivery O2 Flow Rate FiO2 08/28/24 11:23 84 16 Room Air 0.0 08/28/24 11:17 97 21 08/28/24 11:00 97.4 139/80 (99) Laboratory Tests Test 08/26/24 16:31 08/26/24 16:38 08/26/24 21:17 08/27/24 05:36 Urine Specimen Description Urinal Urine Color Yellow Urine Clarity Slightly cloudy Urine pH 6.0 Urine Specific [place] >=1.030 Urine Protein Negative mg/dl Urine Glucose (UA) Negative mg/dl Urine Ketones Negative mg/dl Urine Occult Blood Negative Urine Nitrite Negative Urine Bilirubin Negative Urine Urobilinogen 1.0 E.U/dL Urine Leukocyte Esterase Negative Urine RBC None seen /HPF Urine WBC 5-10 /HPF Urine Squamous Epithelial Cells Few /LPF Urine Bacteria Few /HPF Urine Culture Indicated Indicated Volume Urine Centrifuged 10 ml Urine Comment Troponin I High Sensitivity < 4 ng/L Troponin I High Sens Percent Delta % Troponin I Hi Sens Absolute Change ng/L Procalcitonin < 0.05 NG/ML SARS-CoV-2 Antigen (Rapid) Negative White Blood Count 7.9 X10'3 Red Blood Count 4.10 X10'6 Hemoglobin 11.5 g/dl Hematocrit 34.2 % Mean Corpuscular Volume 83.4 FL Mean Corpuscular Hemoglobin 28.0 PG Mean Corpuscular Hemoglobin Concent 33.6 g/dL Red Cell Distribution Width 16.8 % Platelet Count 356 X10'3 Mean Platelet Volume 7.0 FL Neutrophils (%) (Auto) 87.6 % Lymphocytes (%) (Auto) 10.5 % Monocytes (%) (Auto) 1.7 % Eosinophils (%) (Auto) 0 % Basophils (%) (Auto) 0.2 % Neutrophils # (Auto) 6.9 X10'3 Lymphocytes # (Auto) 0.8 X10'3 Monocytes # (Auto) 0.1 X10'3 Eosinophils # (Auto) 0.0 X10'3 Basophils # (Auto) 0.0 X10'3 CBC Comment Sodium Level 139 MMOL/L Potassium Level 4.1 MMOL/L Chloride Level 104 MMOL/L Carbon Dioxide Level 25.5 MMOL/L Anion Gap 10 Blood Urea Nitrogen 8 MG/DL Creatinine 0.90 MG/DL Estimated GFR/1.73 m2 > 90 ML/MIN BUN/Creatinine Ratio 8.9 Glucose Level 142 MG/DL Calcium Level 8.9 MG/DL Magnesium Level 1.9 MG/DL Total Bilirubin 0.2 MG/DL Aspartate Amino Transf (AST/SGOT) 17 U/L Alanine Aminotransferase (ALT/SGPT) 18 U/L Alkaline Phosphatase 97 IU/L C-Reactive Protein 6.04 MG/DL Total Protein 7.1 G/DL Albumin 2.8 G/DL Globulin 4.3 G/DL Albumin/Globulin Ratio 0.7 Chemistry Comments Test 08/27/24 10:45 08/27/24 11:55 08/27/24 21:34 08/28/24 08:41 Erythrocyte Sedimentation Rate 38 MM/HR Urine Opiates Screen Positive Urine Methadone Screen Positive Urine Fentanyl Screen Positive Urine Barbiturates Screen Negative Urine Phencyclidine Screen Negative Urine Amphetamines Screen Positive Urine Benzodiazepines Screen Positive Urine Cocaine Screen Negative Urine Cannabinoids Screen Positive Drug Screen Comment Vancomycin Level Trough 6.9 ug/mL White Blood Count 10.2 X10'3 Red Blood Count 4.18 X10'6 Hemoglobin 11.6 g/dl Hematocrit 34.9 % Mean Corpuscular Volume 83.4 FL Mean Corpuscular Hemoglobin 27.7 PG Mean Corpuscular Hemoglobin Concent 33.2 g/dL Red Cell Distribution Width 16.7 % Platelet Count 373 X10'3 Mean Platelet Volume 7.2 FL Neutrophils (%) (Auto) 70.3 % Lymphocytes (%) (Auto) 22.9 % Monocytes (%) (Auto) 4.9 % Eosinophils (%) (Auto) 1.0 % Basophils (%) (Auto) 0.9 % Neutrophils # (Auto) 7.2 X10'3 Lymphocytes # (Auto) 2.3 X10'3 Monocytes # (Auto) 0.5 X10'3 Eosinophils # (Auto) 0.1 X10'3 Basophils # (Auto) 0.1 X10'3 CBC Comment Sodium Level 138 MMOL/L Potassium Level 3.3 MMOL/L Chloride Level 104 MMOL/L Carbon Dioxide Level 28.5 MMOL/L Anion Gap 6 Blood Urea Nitrogen 11 MG/DL Creatinine 0.93 MG/DL Estimated GFR/1.73 m2 > 90 ML/MIN BUN/Creatinine Ratio 11.8 Glucose Level 94 MG/DL Calcium Level 8.8 MG/DL Magnesium Level 2.1 MG/DL Total Bilirubin 0.2 MG/DL Aspartate Amino Transf (AST/SGOT) 13 U/L Alanine Aminotransferase (ALT/SGPT) 17 U/L Alkaline Phosphatase 95 IU/L Total Protein 6.7 G/DL Albumin 2.7 G/DL Globulin 4.0 G/DL Albumin/Globulin Ratio 0.7 Chemistry Comments *Problems/Diagnosis: (1) Pneumonia Status: Acute (2) Crohn's Disease Status: Acute Total Time Spent on D/C: > 30 Minutes Date of Service: Aug 28, 2024 Billing Provider: LALA IBRAHIM MD, SOWMYA MANJARI, RES Aug 28, 2024 15:55
[2024-08-28] MEDS ORDERED: propranolol 10mg tablet PO SCH (20:00)
== END 2024-08-28 14:42 | disposition home or self-care (01) | DRG 139 ==
LOC: ER 11:12 → ED HOLD 19:28 → PCU 3S 21:39
PROVIDERS: ADMIT Internal Medicine Pulmonary Disease; ATTEND Family Medicine
PROC: B32T1ZZ Computerized Tomography (CT Scan) of Left Pulmonary Artery using Low Osmolar Contrast (ICD-10-PCS; principal; 2024-08-26)
PROC: B3201ZZ Computerized Tomography (CT Scan) of Thoracic Aorta using Low Osmolar Contrast (ICD-10-PCS; 2024-08-26)
PROC: B32S1ZZ Computerized Tomography (CT Scan) of Right Pulmonary Artery using Low Osmolar Contrast (ICD-10-PCS; 2024-08-26)
DX: J15.9 Unspecified bacterial pneumonia (principal); J96.01 Acute respiratory failure with hypoxia; R04.2 Hemoptysis; Z20.822 Contact with and (suspected) exposure to COVID-19; F32.A Depression, unspecified; F41.9 Anxiety disorder, unspecified; D64.9 Anemia, unspecified; K50.90 Crohn's disease, unspecified, without complications; F15.90 Other stimulant use, unspecified, uncomplicated; Z88.8 Allergy status to other drugs, medicaments and biological substances
CPT/HCPCS: 36415; 71045; 71275; 80053; 80202; 80305; 81001; 82550; 82553; 83605; 83690; 83735; 84145; 84484; 85025; 85379; 85610; 85651; 85730; 86140; 87040; 87070; 87081; 87088; 87811; 93005; 94640; 94664; 94668; 94760; 96361; 96365; 96368; 96375; 96376; 97116; 97161; 97530; 99285; A4615; A6213; A6258; G0378; J0456; J0692; J0696; J1171; J1644; J1956; J2270; J2405; J2919; J3010; J3370; J7030; Q9967

== ENCOUNTER 2024-09-27 12:24 | Emergency (ER) | payer MEDICAID ==
[~2024-09-27] VITALS: Ht 190.5 cm; Wt 115.9 kg
[~2024-09-27 12:24] MED LIST changes: -ACET-1025 PO; +ALBU18HF2 IH; -BENZ-38 PO; -HYDR-3965 PO; -HYDR-3972 PO; +LACT1CAP26 PO; -METH-603 PO; +METH5SOL PO; -NALO4SPR22 NAS; -OMEP40CA21 PO; -ONDA-245 PO; -OXYC-138 PO; -USTE90DI SQ; -VARE1TAB24 PO
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
--- NOTE | 2024-09-27 15:53 | RADIOLOGY REPORT ---
CHEST RADIOGRAPH Indication: With rib fracture right Technique: Single frontal view of the chest with 5 views of the right ribs available for evaluation. Comparison: None FINDINGS: Lines and Tubes: None Lungs: No focal consolidation, pneumothorax or pleural effusion of the visualized lungs. Cardiomediastinal contours: Unremarkable Bones: Acute fracture of right posterolateral rib 7 with questionable acute fracture of right anterol ateral ribs 8 and 9 IMPRESSION: No acute cardiopulmonary disease. Acute fracture of right posterolateral ribs 7 with questionable acute fracture of right anterolateral ribs 8 and 9.
[2024-09-27] MEDS: ketorolac trometh 30MG/ML vial 30 MG/ML VIAL IM ONE (16:00)
[2024-09-27] MEDS: HYDROcodone/acetaminophen 10/325mg tab PO ONE (16:00)
[2024-09-27] MEDS ORDERED: IBUP-864 PO (17:03)
[2024-09-27] MEDS ORDERED: LIDO700A47 TOP (17:03)
[2024-09-27] MEDS ORDERED: OXYC-150 PO (17:03)
[2024-09-27 17:42] VITALS: BP 103/56; PULSE 79; RESP 14; TEMP 98.4; O2SAT 98
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
== END 2024-09-27 17:44 | disposition home or self-care (01) ==
LOC: ER 12:24
DX: S22.31XA Fracture of one rib, right side, initial encounter for closed fracture (principal); F32.A Depression, unspecified; F41.9 Anxiety disorder, unspecified; W22.8XXA Striking against or struck by other objects, initial encounter; Y93.89 Activity, other specified; Y92.89 Other specified places as the place of occurrence of the external cause; Y99.8 Other external cause status; Z90.49 Acquired absence of other specified parts of digestive tract; Z88.5 Allergy status to narcotic agent; Z79.899 Other long term (current) drug therapy
CPT/HCPCS: 71046; 71100; 76700; 96372; 99285; J1885

== ENCOUNTER 2024-09-29 21:12 | Inpatient (IN) | payer MEDICAID ==
[~2024-09-29] VITALS: Ht 190.5 cm; Wt 113.6 kg
[~2024-09-29 21:12] MED LIST changes: +IBUP-864 PO; +LIDO700A47 TOP; +OXYC-150 PO
--- NOTE | 2024-09-29 22:43 | RADIOLOGY REPORT ---
EXAM: DI KNEE, COMP 4 VW MIN, DI ANKLE, COMPLETE(3VW MIN), DI TIB/FIB 2 VWS REASON FOR EXAM: Left lower extremity pain. TECHNIQUE: AP, lateral, and tunnel view of the left knee are submitted for review. AP, lateral, and o blique views of the left ankle are submitted for review. AP and lateral views of the left tibia and f ibula are submitted for review. COMPARISON: None FINDINGS: The bones demonstrate normal mineralization. The ankle mortise is maintained. There is min imally displaced acute fracture of the lateral tibial plateau (Segond fracture). There is a large kne e effusion. There is soft tissue edema of the lateral aspect of the knee. IMPRESSION: Minimally displaced, acute fracture of the lateral tibial plateau (segond fracture) with associated l arge knee effusion. This fracture has high correlation with injury of the anterior cruciate ligament. Correlate clinically and with physical exam.
[2024-09-29] MEDS: ondansetron/PF 4mg/2ml inj IV ONE (22:55)
[2024-09-29] MEDS: morphine 4 MG/ML inj SYRINge IV ONE (22:56)
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
[2024-09-29] MEDS ORDERED: ALBU18HF2 INH (23:50)
--- NOTE | 2024-09-30 00:12 | RADIOLOGY REPORT ---
Procedure: CT CT LOWER EXTREMITY 09/29/2024 11:12 PM Indication: tibial FX Comparison Study: None Technique: Axial images of the left lower extremity from the distal femoral diaphysis through the dolly us were obtained and reformatted in coronal and sagittal planes. All CT scans at this medical facilit y are performed using dose modulation techniques as appropriate to a performed exam including the fol lowing: Automated exposure control was utilized; adjustment of the MA and/or KV according to patient size; and use of iterative reconstruction technique. CT Dose: CTDI volume is 17 mGy. Dose-length prod uct is 1038 mGy*cm FINDINGS: There is no fracture of the distal femur. There is no fracture of the patella. There is no fracture of the fibula. There is an acute, minimally displaced fracture at the lateral aspect of the tibial pl ateau adjacent to the fibula. There is also a 3.3 x 4.8 x 1.6 cm acutely impacted, nondisplaced fract ure fragment of the lateral tibial plateau extending anteromedially from the posterolateral corner to the medial tibial spine. There is also subtle extension of a fracture line from the impaction fract ure to the posterolateral cortex of the proximal tibial metaphysis. There is a large knee effusion. T here is moderate subcutaneous edema lateral to the knee. IMPRESSION: Comminuted lateral tibial plateau fracture. Large knee effusion.
[2024-09-30] MEDS: fentaNYL/PF 50MCG/1 ML 2ML syringe IV ONE (00:14)
[2024-09-30] MEDS ORDERED: potassium Cl 20 mEq SR tablet PO PRN (00:15)
[2024-09-30] MEDS ORDERED: potassium Cl 40MEQ/1/2NS 520ml 520 ML IV PRN (00:15)
[2024-09-30] MEDS ORDERED: magnesium sulf-water 4G/100mL 100 ML IV PRN (00:15)
[2024-09-30] MEDS ORDERED: magnesium hydroxide 30ml (MOM) UD suspension PO PRN (00:15)
[2024-09-30] MEDS ORDERED: HYDROcodone/acetaminophen 5mg/325mg tablet PO PRN (00:15)
[2024-09-30] MEDS ORDERED: mag hydrox/Alum hydrox/simeth 30ml oral suspension PO PRN (00:15)
[2024-09-30] MEDS ORDERED: magnesium Cl slow-release 64mg tablet PO PRN (00:15)
[2024-09-30] MEDS ORDERED: metoclopramide 5 mg/ml inj IV PRN (00:15)
[2024-09-30] MEDS ORDERED: ondansetron/PF 4mg/2ml inj IV PRN (00:15)
[2024-09-30] MEDS ORDERED: magnesium sulf-water 2g/50mL 50 ML IV PRN (00:15)
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
[2024-09-30] MEDS: HYDROmorphone inj. 0.5 MG/0.5 ML DISP.SYRIN IV PRN (02:28)
[2024-09-30 02:30] VITALS: BP 116/77; PULSE 65; RESP 18; TEMP 97.9; O2SAT 100
[2024-09-30] MEDS ORDERED: non-formulary drug (Alprazolam 1 TAB) PO PRN (02:50)
[2024-09-30 06:00] VITALS: BP 113/54; PULSE 62; RESP 18; TEMP 98.6; O2SAT 96
[2024-09-30 06:04] LABS: MEAN PLATELET VOLUME 6.7 FL (7.4-10.4); RED CELL DISTRIBUTION WIDTH 16.2 % (11.5-14.5)
[2024-09-30 06:21] LABS: CREATININE 1.01 MG/DL (0.60-1.10); TOTAL CARBON DIOXIDE 24.9 MMOL/L (24-32); eCRCL 126 ML/MIN; eGFR 86 ML/MIN
[2024-09-30 08:00] VITALS: RESP 18
[2024-09-30] MEDS ORDERED: non-formulary drug (Propranolol Hcl 1 TAB) PO SCH (08:00)
[2024-09-30] MEDS: K and/or MAG REPLACEMENT MC SCH (08:00)
[2024-09-30] MEDS: docusate sod 100mg capsule PO SCH (08:11)
[2024-09-30] MEDS: HYDROmorphone/PF 0.2 MG/ML SYRINGE IV PRN (08:11)
[2024-09-30 08:49] LABS: INR 1.0 INR
[2024-09-30] MEDS: heparin, porcine 5000 units/ml vial SQ SCH (09:02)
[2024-09-30] MEDS: pantoprazole 40mg Tablet.DR PO SCH (09:02)
[2024-09-30 09:03] LABS: % IRON SATURATION 43.0 % (11-46)
[2024-09-30 09:06] LABS: APTT 20 SECONDS (22-32)
[2024-09-30 10:00] VITALS: BP 109/65; PULSE 68; RESP 17; TEMP 97.1; O2SAT 96
[2024-09-30] MEDS: methadone 10mg tablet PO SCH (10:16)
[2024-09-30] MEDS: HYDROcodone/acetaminophen 10/325mg tab PO PRN (13:02)
[2024-09-30 16:03] LABS: LEUKOCYTE ESTERASE ,URINE NEGATIVE (Neg); NITRITES, URINE NEGATIVE (Neg); OCCULT BLOOD,URINE NEGATIVE (Neg)
[2024-09-30 16:08] LABS: UA COLLECTION TYPE NON-SPECIFIED
[2024-09-30 16:14] LABS: URINE AMPHETAMINE SCREEN POSITIVE (Neg); URINE BARBITUATE SCREEN NEGATIVE (Neg); URINE BENZODIAZEPINES SCREEN POSITIVE (Neg); URINE CANNABINOID SCREEN POSITIVE (Neg); URINE COCAINE SCREEN NEGATIVE (Neg); URINE METHADONE SCREEN POSITIVE (Neg); URINE OPIATE SCREEN POSITIVE (Neg); URINE PHENCYCLIDINE SCREEN NEGATIVE (Neg)
[2024-09-30 18:00] VITALS: BP 129/62; PULSE 72; RESP 18; TEMP 97.2; O2SAT 93
[2024-09-30] MEDS: potassium Cl 20 mEq SR tablet PO PRN (19:47)
[2024-09-30] MEDS: propranolol 10mg tablet PO SCH (19:47)
[2024-09-30 22:00] VITALS: BP 114/65; PULSE 77; RESP 18; TEMP 99.1; O2SAT 94
[2024-10-01 05:54] LABS: MEAN PLATELET VOLUME 6.8 FL (7.4-10.4); RED CELL DISTRIBUTION WIDTH 16.4 % (11.5-14.5)
[2024-10-01 06:00] VITALS: BP 98/51; PULSE 73; RESP 16; TEMP 98.1; O2SAT 95
[2024-10-01 06:50] LABS: CREATININE 1.02 MG/DL (0.60-1.10); TOTAL CARBON DIOXIDE 27.9 MMOL/L (24-32); eCRCL 124 ML/MIN; eGFR 85 ML/MIN
[2024-10-01] MEDS ORDERED: DOCU-148 PO (08:54)
[2024-10-01] MEDS ORDERED: PANT40TA54 PO (08:54)
[2024-10-01] MEDS ORDERED: OXYC-150 PO (09:38)
[2024-10-01 10:00] VITALS: BP 113/59; PULSE 65; RESP 17; TEMP 97.7; O2SAT 92
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
== END 2024-10-01 13:12 | disposition home or self-care (01) | DRG 342 ==
LOC: ER 21:12 → ED HOLD 09-30 00:23 → EDBEDREQ 09-30 01:45 → ORTHO 4S 09-30 02:20
PROVIDERS: ADMIT Internal Medicine Critical Care Medicine; ATTEND Internal Medicine
DX: S82.142A Displaced bicondylar fracture of left tibia, initial encounter for closed fracture (principal); F32.A Depression, unspecified; F41.9 Anxiety disorder, unspecified; F90.9 Attention-deficit hyperactivity disorder, unspecified type; K50.90 Crohn's disease, unspecified, without complications; W18.39XA Other fall on same level, initial encounter; Y93.89 Activity, other specified; Y92.89 Other specified places as the place of occurrence of the external cause; Y99.8 Other external cause status; Z88.5 Allergy status to narcotic agent
CPT/HCPCS: 36415; 73564; 73590; 73610; 73700; 80053; 80305; 81003; 82607; 82728; 82746; 83540; 83550; 83735; 84443; 85025; 85610; 85651; 85730; 87081; 96374; 96375; 97116; 97161; 99285; G0378; J1171; J1644; J2270; J2405; J3010

== ENCOUNTER → 2024-10-30 | Emergency (ER) | payer MEDICAID, SELFPAY ==
[~2024-10-30] VITALS: Ht 188 cm; Wt 100.0 kg
[~2024-10-30] MED LIST changes: -ALBU18HF2 IH; +ALBU18HF2 INH; +DOCU-148 PO; +HYDR-3965 PO; -IBUP-1986 PO; -IBUP-864 PO; -LACT1CAP26 PO; -LIDO700A47 TOP; -ONDA-243 PO; +PANT40TA54 PO; -[UNRECOGNIZED DRUG - CODE] PO; +ketorolac trometh 15mg/ml vial 15 MG/ML ML IV ONE
[2024-10-30 18:32] VITALS: TEMP 97.9
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
[2024-10-30] MEDS: HYDROcodone/acetaminophen 5mg/325mg tablet PO ONE (19:53)
[2024-10-30] MEDS: ketorolac trometh 30MG/ML vial 30 MG/ML VIAL IM STA (19:53)
[2024-10-30 19:59] VITALS: BP 109/58; PULSE 60; RESP 18; O2SAT 95
== END | disposition home or self-care (01) ==
LOC: ER 18:19
DX: M25.562 Pain in left knee (principal); F41.9 Anxiety disorder, unspecified; Z88.5 Allergy status to narcotic agent; Z90.49 Acquired absence of other specified parts of digestive tract
CPT/HCPCS: 96372; 99284; J1885

== ENCOUNTER 2024-11-03 13:52 | Emergency (ER) | payer MEDICAID, SELFPAY ==
[~2024-11-03] VITALS: Ht 188 cm; Wt 100.0 kg
[~2024-11-03 13:52] MED LIST changes: -HYDR-3965 PO; -ketorolac trometh 15mg/ml vial 15 MG/ML ML IV ONE
[2024-11-03 13:58] VITALS: TEMP 98.1
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
[2024-11-03 15:52] VITALS: BP 128/87; PULSE 64; RESP 16; O2SAT 98
== END 2024-11-03 16:19 | disposition home or self-care (01) ==
LOC: ER 13:52
DX: F41.9 Anxiety disorder, unspecified (principal); Z76.0 Encounter for issue of repeat prescription; F32.A Depression, unspecified; G89.29 Other chronic pain; Z86.14 Personal history of Methicillin resistant Staphylococcus aureus infection; Z90.49 Acquired absence of other specified parts of digestive tract; Z88.8 Allergy status to other drugs, medicaments and biological substances; Z79.899 Other long term (current) drug therapy
CPT/HCPCS: 99283

== ENCOUNTER 2024-11-19 08:44 | Emergency (ER) | payer MEDICAID, SELFPAY ==
[~2024-11-19] VITALS: Ht 188 cm; Wt 120.5 kg
[2024-11-19 08:51] VITALS: BP 126/72; PULSE 83; RESP 16; O2SAT 97
--- NOTE | 2024-11-19 10:59 | RADIOLOGY REPORT ---
CLINICAL INDICATION: Pain; f/u tib/fib fx. TECHNIQUE: 4 radiographic views of the left tibial plateau were obtained. Comparison: CT CT LOWER EXTREMITY on DOS: 09/29/24, DI ANKLE, COMPLETE(3VW MIN) on DOS: 09/29/24, DI KNEE, COMP 4 VW MIN on DOS: 09/29/24, DI TIB/FIB 2 VWS on DOS: 09/29/24 FINDINGS/IMPRESSION: Healing lateral tibial plateau fracture.
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
[2024-11-19 11:40] VITALS: TEMP 98.3
== END 2024-11-19 11:44 | disposition home or self-care (01) ==
LOC: ER 08:45
DX: S82.142D Displaced bicondylar fracture of left tibia, subsequent encounter for closed fracture with routine healing (principal); G89.29 Other chronic pain; F41.9 Anxiety disorder, unspecified; F32.A Depression, unspecified; Z90.49 Acquired absence of other specified parts of digestive tract; Z86.14 Personal history of Methicillin resistant Staphylococcus aureus infection; Z88.8 Allergy status to other drugs, medicaments and biological substances; Z79.899 Other long term (current) drug therapy; X58.XXXD Exposure to other specified factors, subsequent encounter
CPT/HCPCS: 73590; 99284

== ENCOUNTER 2024-12-25 17:46 | Emergency (ER) | payer MEDICAID ==
[~2024-12-25] VITALS: Ht 188 cm; Wt 112.9 kg
[~2024-12-25 17:46] MED LIST changes: +HYDR-3965 PO
[2024-12-25 17:49] VITALS: BP 108/56; PULSE 72; O2SAT 98
--- NOTE | 2024-12-25 19:11 | RADIOLOGY REPORT ---
CLINICAL HISTORY: LEG PAIN LEFT TECHNIQUE: 2 views of the left tibia/ fibula were obtained. COMPARISON: DI TIB/FIB 2 VWS on DOS: 11/19/24, CT CT LOWER EXTREMITY on DOS: 09/29/24, DI ANKLE, COMPLETE(3VW MIN) on DOS: 09/29/24, DI KNEE, COMP 4 VW MIN on DOS: 09/29/24, DI TIB/FIB 2 VWS on DOS: 09/29/24 FINDINGS: There is a healing fracture of the lateral tibial plateau. No new fractures seen. There are no significant degenerative changes. No significant soft tissue abnormality is seen. IMPRESSION: Healing fracture of the lateral tibial plateau. No new fracture seen.
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
[2024-12-25 20:02] VITALS: TEMP 97
[2024-12-25 20:13] VITALS: RESP 15
[2024-12-25] MEDS: HYDROcodone/acetaminophen 5mg/325mg tablet PO ONE (20:13)
== END 2024-12-25 20:15 | disposition home or self-care (01) ==
LOC: ER 17:46
DX: S82.142D Displaced bicondylar fracture of left tibia, subsequent encounter for closed fracture with routine healing (principal); G89.29 Other chronic pain; F41.9 Anxiety disorder, unspecified; F32.A Depression, unspecified; Z90.49 Acquired absence of other specified parts of digestive tract; Z86.14 Personal history of Methicillin resistant Staphylococcus aureus infection; Z88.8 Allergy status to other drugs, medicaments and biological substances; Z79.899 Other long term (current) drug therapy; X58.XXXA Exposure to other specified factors, initial encounter; Y93.89 Activity, other specified; Y92.89 Other specified places as the place of occurrence of the external cause; Y99.8 Other external cause status
CPT/HCPCS: 29505; 73590; 99283

== ENCOUNTER 2025-01-03 16:00 | Emergency (ER) | payer MEDICAID ==
[~2025-01-03] VITALS: Ht 188 cm; Wt 118.9 kg
[~2025-01-03 16:00] MED LIST changes: -HYDR-3965 PO
[2025-01-03 16:11] VITALS: BP 148/83; PULSE 54; RESP 18; TEMP 98.1; O2SAT 97
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
== END 2025-01-03 17:37 | disposition home or self-care (01) ==
LOC: ER 16:01
DX: Z00.00 Encounter for general adult medical examination without abnormal findings (principal); F41.9 Anxiety disorder, unspecified; F32.A Depression, unspecified; Z90.49 Acquired absence of other specified parts of digestive tract
CPT/HCPCS: 99283